=== PATIENT | female | born 1955 | race Caucasian/White ===

== ENCOUNTER → 2016-09-06 | Outpatient (CLI) | payer BC ==
[~2016-09-06] MED LIST: DOXY-233 PO; HYDR-3583 PO; HYDR12.56 PO; LISI-556 PO
--- NOTE | 2016-09-06 10:05 | Diagnostic Imaging Report ---
Left breast ultrasound. INDICATION: History of breast cancer with focal asymmetries seen in the left breast. FINDINGS: At 2 o'clock zone 6 cm from the nipple there is a 1.0 x 0.8 x 0.4-cm heterogenous hypoechoic lesion with shadowing portion that has internal vascularity measuring 5 mm within this lesion. Also at 3 o'clock zone 2 cm from the nipple there is a 1.2 x 0.6 x 0.6-cm hypoechoic irregular lesion with increased vascularity with color Doppler. IMPRESSION: Two suspicious nodules up to 1.2 cm in size at 3 o'clock and 2 o'clock zones concerning for tumor recurrence. Ultrasound-guided biopsy is recommended. The findings and recommendations were personally discussed with the patient just before this dictation. ACR BI-RADS Category 4B: Intermediate suspicion of malignancy. Result letter will be mailed to the patient. Report was faxed to office of FERMIN Villanueva, @ 10:02 AM/tonja. Dictated by: Dictated on workstation # [id number]
--- NOTE | 2016-09-06 19:00 | Diagnostic Imaging Report ---
Bilateral breast diagnostic mammogram. INDICATION: Thickening at the lumpectomy site in the left breast. History of breast cancer. The current study was also evaluated with a Computer Aided Detection (CAD) system. FINDINGS: There is a focal asymmetry along the lateral aspect of the left breast. This is evaluated with focal compression views which demonstrate a concerning underlying irregular focal asymmetry measuring 1 cm. Also more posterolaterally, there is an 8 mm asymmetry seen on the CC projection and not definitively seen on the lateral view. The right breast demonstrates scattered fibroglandular densities with no focal mass. No suspicious calcification. IMPRESSION: Concerning irregular focal asymmetry in the lateral aspect of the left breast and another questionable nodule more posterolaterally seen only on the CC projection. Ultrasound evaluation is pending. ACR BI-RADS Category 0: Incomplete. (Needs additional imaging evaluation). Result letter will be mailed to the patient. Note: At least 10% of breast cancer is not imaged by mammography. Dictated by: Dictated on workstation # [id number]
== END ==
LOC: RAD 08:38
PROVIDERS: ATTEND Nurse Practitioner Adult Health
DX: N63 Unspecified lump in breast (principal); N64.59 Other signs and symptoms in breast; C50.412 Malignant neoplasm of upper-outer quadrant of left female breast
CPT/HCPCS: 76642; 77066

== ENCOUNTER → 2016-09-18 | Outpatient (CLI) | payer BC ==
[~2016-09-18] VITALS: Ht 172.7 cm; Wt 111.7 kg
[~2016-09-18] MED LIST changes: +LIDOCAINE 1% INJ 20 ML (XYLOCAINE) VIAL INJ ONE
[2016-09-18 08:47] VITALS: BP 137/86
[2016-09-18 09:43] VITALS: BP 128/80
--- NOTE | 2016-09-18 10:13 | Diagnostic Imaging Report ---
EXAMINATION: Vacuum-assisted ultrasound-guided biopsy of breast mass left. A metallic clip placed to souleymane biopsy site. INDICATION: Left breast mass. CONSENT: Informed consent was obtained from the patient. The risks, benefits, potential complications and alternatives were reviewed and all questions answered to the patient's satisfaction. FINDINGS: Ultrasound images demonstrate left breast mass at 3:00 zone 2 CM from the nipple. PROCEDURE: After sterile preparation and draping, 1% lidocaine was utilized for local anesthesia. A vacuum-assisted biopsy device with 14-gauge needle was introduced under live ultrasound guidance into the lesion. Good needle position was documented with ultrasound images. A metallic clip was placed to souleymane the site of the biopsy. A subsequent mammogram is performed and confirms the proper positioning of the clip. Multiple samples were obtained and sent to pathology. The patient tolerated the procedure well with no immediate complications. IMPRESSION: Successful ultrasound-guided biopsy of 3:00 left breast mass. A metallic clip placed to souleymane biopsy site. Dictated by: Dictated on workstation # [id number]
--- NOTE | 2016-09-18 18:36 | Diagnostic Imaging Report ---
EXAMINATION: Left breast digital diagnostic mammogram with CAD. The current study was also evaluated with a Computer Aided Detection (CAD) system. INDICATION: Documentation of clip position after ultrasound-guided biopsy. FINDINGS: There is a biopsy clip placed at the lateral aspect of the left breast, it appears to correspond with the lateral left breast suspicious nodule seen previously. IMPRESSION: Satisfactory placement of clip application of lateral left breast nodule after ultrasound-guided biopsy. Pathology results are pending. ACR BI-RADS Category 4C: Moderate suspicion of malignancy. Result letter will be mailed to the patient. Note: At least 10% of breast cancer is not imaged by mammography. Dictated by: Dictated on workstation # [id number]
== END ==
LOC: RAD 08:28
PROVIDERS: ATTEND Nurse Practitioner Adult Health
DX: N63 Unspecified lump in breast (principal); N64.59 Other signs and symptoms in breast; C50.412 Malignant neoplasm of upper-outer quadrant of left female breast
CPT/HCPCS: 19083; 88305; 88360; 88368

== ENCOUNTER → 2016-10-08 | Outpatient (CLI) | payer BC ==
[~2016-10-08] MED LIST changes: -LIDOCAINE 1% INJ 20 ML (XYLOCAINE) VIAL INJ ONE
== END ==
LOC: RAD 08:56
PROVIDERS: ATTEND Nurse Practitioner Adult Health
DX: C50.412 Malignant neoplasm of upper-outer quadrant of left female breast (principal)

== ENCOUNTER 2016-10-09 09:02 | Outpatient (CLI) | payer BC ==
[~2016-10-09] VITALS: Ht 172.7 cm; Wt 116.1 kg
[2016-10-09 09:15] VITALS: BP 133/70
== END 2016-10-09 09:30 | disposition home or self-care (01) ==
LOC: PREOP 09:02
PROVIDERS: ATTEND Surgery
DX: Z01.818 Encounter for other preprocedural examination (principal); Z11.2 Encounter for screening for other bacterial diseases; C50.912 Malignant neoplasm of unspecified site of left female breast
CPT/HCPCS: 87081

== ENCOUNTER → 2016-10-09 | Outpatient (CLI) | payer BC | LOC: CARD 08:08 | PROVIDERS: ATTEND Nurse Practitioner Adult Health | DX: Z51.81 Encounter for therapeutic drug level monitoring (principal); Z79.899 Other long term (current) drug therapy; C50.412 Malignant neoplasm of upper-outer quadrant of left female breast; I10 Essential (primary) hypertension | CPT/HCPCS: 93306 ==

== ENCOUNTER 2016-10-10 11:06 | Day surgery (SDC) | payer BC ==
[~2016-10-10] VITALS: Ht 172.7 cm; Wt 116.1 kg
[2016-10-10 11:00] VITALS: BP 136/66
[~2016-10-10 11:06] MED LIST changes: +CATHETER FLUSH 10 ML SYR IV PRN; +IOHEXOL 350 MG/ML 100 ML (OMNIPAQUE 350) VIAL IV ONE; +NS 100 ML (IVPB) BAG IV ONE
[2016-10-10] MEDS ORDERED: ceFAZolin 2 GM/NS 50 ML IV ONE (11:30)
--- NOTE | 2016-10-10 12:05 | Discharge Inst-Simple/Standard ---
Discharge Inst-Standard Patient Instructions/Follow Up Plan of Care/Instructions/FU: Follow up with Dr. Reynoso in 2 weeks. Apply ice to incision for 15 mins on and 30 mins off Activity as Tolerated: No Discharge Diet: No Restrictions Other Inst to Patient Follow up Appt: Make appointment for 2 weeks. Instructions: No lifting greater than 10 pounds. No strenuous activity. May shower in 24 hours, no tub bath or soaking. Use incentive spirometer at home as directed. No Smoking Apply ice to incision for 15 mins on and 30 mins off Skin/Wound Care: May remove bandages. You need to leave the white strips over incision on they will fall off on their own. Symptoms to Report: Appetite Changes, Extremity Discoloration, Numbness/Tingling, Swelling Increased , Bleeding Excessive, Eyesight Changes, Pain Increased, Urine Color Change, Constipation(Persistent), Fever over 101 degree F, Pain/Pressure in chest, Urinating Difficulty, Cough Up/Vomit Blood, Heart Beat Irreg/Pounding, Pain/ Pressure in jaw, Vaginal Bleeding Increase, Cramps in feet or legs, Lightheadedness, Pain/Pressure in shoulder, Diarrhea(Persistent), Memory Changes Suddenly, Questions/Concerns, Weight gain consecutive days, Dizziness/ Fainting, Nausea/Vomiting, Shortness of Breath, Weight gain over 2 pounds If questions or concerns contact your physician Or seek help at emergency department. BECKY DONIS APRN October 10, 2016 12:05
[2016-10-10] MEDS ORDERED: LACTATED RINGERS 1,000 ML IV ONE ×2 (12:16→13:21)
[2016-10-10] MEDS ORDERED: LIDOCAINE PF 2% 10 ML (XYLOCAINE) AMP ONE (12:16)
[2016-10-10] MEDS ORDERED: ONDANSETRON 4 MG/2 ML (SDV) Z0FRAN ONE (12:16)
[2016-10-10] MEDS ORDERED: DEXAMETHASONE PF 10 MG/ML (DECADRON) VIAL ONE (12:16)
[2016-10-10] MEDS ORDERED: proPOfol 200 MG/20 ML (DIPRIVAN) VIAL IV ONE (12:16)
[2016-10-10] MEDS ORDERED: SEVOFLURANE (ULTANE) 15 ML INHAL SOLN ONE ×3 (12:16→14:14)
[2016-10-10] MEDS ORDERED: fentaNYL INJECTION 100 MCG/2 ML AMP ONE (12:17)
[2016-10-10] MEDS ORDERED: MIDAZOLAM 2 MG/2 ML (VERSED) VIAL ONE (12:17)
[2016-10-10] MEDS ORDERED: LACTATED RINGERS 1,000 ML IV PRN (12:26)
[2016-10-10] MEDS ORDERED: BUPIVACAINE 0.5% 30 ML (SENSORCAINE) VIAL ONE (12:40)
[2016-10-10] MEDS ORDERED: 0.9% SODIUM CHLORIDE PF INJ 20 ML VIAL ONE (12:41)
[2016-10-10] MEDS ORDERED: HEParin (CENTRAL IV FLUSH) 500 UNIT/5 ML SYR ONE (12:41)
[2016-10-10] MEDS ORDERED: LIDOCAINE 1% INJ 20 ML (XYLOCAINE) VIAL ONE (12:41)
--- NOTE | 2016-10-10 12:53 | Progress Note-Pre Operative ---
Pre-Operative Progress Note H&P Reviewed The H&P was reviewed, patient examined and no changes noted. Date H&P Reviewed: October 10, 2016 Time H&P Reviewed: 12:52 Pre-Operative Diagnosis: breast cancer CARLIE POLLOCK DO October 10, 2016 12:53 pm
[2016-10-10] MEDS ORDERED: ONDANSETRON 4 MG/2 ML (SDV) Z0FRAN IVP PRN (14:30)
[2016-10-10] MEDS ORDERED: morphine INJ 10 MG/ML 1ML (SYR OR VIAL) IVP PRN (14:30)
--- NOTE | 2016-10-10 15:01 | Diagnostic Imaging Report ---
Portable upright radiograph of the chest. INDICATION: Port placement FINDINGS: There is a right internal jugular port placed with the tip projecting at the upper SVC level. The lungs are clear. The heart size is mildly enlarged. No effusion or pneumothorax. The mediastinum and hernandez appear unremarkable. IMPRESSION: Cardiomegaly. Right IJ port is placed with the tip projecting at the upper SVC level. Dictated by: Dictated on workstation # [id number]
[2016-10-10 15:10] VITALS: BP 153/72
[2016-10-10 15:40] VITALS: BP 160/70
[2016-10-10 16:10] VITALS: BP 161/78
[2016-10-10 16:12] VITALS: BP 161/78
--- NOTE | 2016-10-10 16:23 | Progress Note-Post Operative ---
Post-Operative Progess Note Surgeon (s)/Master Technician (s) Surgeon CARLIE POLLOCK DO Master Technician: na Pre-Operative Diagnosis breast cancer Post-Operative Diagnosis same Procedure & Operative Findings Date of Procedure 10/10/16 Procedure Preformed/Findings power port placement right internal jugular vein using u/s guidance Anesthesia Type general Estimated Blood Loss Estimated blood loss (mL): minimal Specimens/Packing Specimens Removed na Packing: CARLIE Solis DO October 10, 2016 4:23 pm
--- NOTE | 2016-10-10 16:51 | OPERATIVE REPORT ---
DATE OF SERVICE: 10/10/2016 PREOPERATIVE DIAGNOSIS: Breast cancer. POSTOPERATIVE DIAGNOSIS: Breast cancer. PROCEDURE PERFORMED: PowerPort placement right internal jugular vein using ultrasound guidance. SURGEON: Carlie Reynoso D.O. ANESTHESIA: General. ESTIMATED BLOOD LOSS: Minimal. SPECIMENS: None. PACKING: None. INDICATIONS: The patient is a 61-year-old female re-diagnosed with breast cancer. She is going to undergo chemotherapy. She understands risks and benefits of procedure and wished to proceed with procedure. Consent was on the chart. PROCEDURE: The patient was taken to the operating suite, she was prepped and draped in sterile fashion. Surgical pause was performed. Using ultrasound guidance, right internal jugular vein was accessed, dark nonpulsatile was withdrawn. The micro-access wire was inserted under fluoroscopy and assured proper placement. The needle was removed. A stab incision was made on the neck at the insertion point and a micro-access dilator was then advanced over the guidewire and the wire was removed. The normal guidewire was then inserted and fluoroscopy assured proper placement. The sheath was removed. The wire was secured. Local anesthetic was infiltrated into the right chest and a #15 blade scalpel was used to make a skin incision and dissect down to the pectoral fascia. I created a pocket both with cautery and blunt dissection. A dilator sheath was then advanced over the guidewire under fluoroscopy. On first attempt had a little bit of resistance, but then the dilator sheath went without difficulty. The wire and dilator were removed from the sheath and the Groshong catheter was then inserted into the sheath and the sheath was removed. The Groshong wire was then removed. The catheter was then tunneled from the neck incision down to the pocket on the right chest. Fluoroscopy was used to help cutting the catheter to length. Once cut to length it was secured to the port which was then placed within the pocket. The port was then accessed without difficulty. It flushed with ease first with saline and then heparin. The subcutaneous tissues were then reapproximated using 3-0 Vicryl. The skin was then washed and dried and Dermabond was placed over the incision on the chest and the stab incision on the right neck. Once the Dermabond was dried a sterile bandage was applied. The patient tolerated the procedure well without any complications. She was taken to the recovery room in stable condition. Chest x-ray is pending. Job ID: [id number] DocumentID: [id number] Dictated Date: 10/10/2016 16:25:04 Tour Driver Date: 10/10/2016 16:50:50 Dictated By: CARLIE REYNOSO DO
--- NOTE | 2016-10-10 19:30 | Diagnostic Imaging Report ---
Intraoperative view of the chest. INDICATION: Port placement. Fluoroscopy time of one minute and 28 seconds was reviewed. IMPRESSION: Right internal jugular port is placed with the tip projecting at the SVC level. Dictated by: Dictated on workstation # [id number]
== END 2016-10-10 16:12 | disposition home or self-care (01) ==
LOC: SDC 11:06
PROVIDERS: ATTEND Surgery
DX: C50.912 Malignant neoplasm of unspecified site of left female breast (principal); I10 Essential (primary) hypertension; E66.9 Obesity, unspecified; F17.210 Nicotine dependence, cigarettes, uncomplicated; Z68.39 Body mass index [BMI] 39.0-39.9, adult
CPT/HCPCS: 71010

== ENCOUNTER → 2016-10-15 | Outpatient (CLI) | payer BC ==
[~2016-10-15] MED LIST changes: -CATHETER FLUSH 10 ML SYR IV PRN; -IOHEXOL 350 MG/ML 100 ML (OMNIPAQUE 350) VIAL IV ONE; -NS 100 ML (IVPB) BAG IV ONE
--- NOTE | 2016-10-15 18:09 | Diagnostic Imaging Report ---
EXAMINATION: PET-CT TECHNIQUE: Serum glucose level at the time of the study is: 213 mg/dL. This is slightly improved compared to 230 one week prior. Diet modification instructions were given. 12.6 mCi of FDG was administered intravenously followed by obtaining PET images with corresponding noncontrast CT scan images. The CT scan was performed for anatomic correlation and attenuation correction and was not performed according to the diagnostic protocol of the areas covered. The scan was performed from the head to mid thighs. INDICATION: Breast cancer followup FINDINGS: There is a mild hypermetabolism seen in a right paratracheal lymph node measuring 0.9 cm in short axis with maximum SUV of 4.4. There is also a mild to moderate focus of hypermetabolism seen in the thoracic spine, appears to be involving the T5 vertebral body which also demonstrates a subtle sclerotic and lytic lesion measuring 1 cm that appears to be new compared to the previous study. There is a questionable minimal FDG uptake also seen in a nonspecific minimal sclerotic area in T6 vertebral body, as well. This is concerning for metastatic disease. No significant hypermetabolism is seen in the chest otherwise. No significant hypermetabolic lesion is seen in the neck or in the head with symmetric FDG uptake noted in the brain. ABDOMEN / PELVIS: Stable hypodense lesion is seen in the liver near the gallbladder bed without increased FDG uptake, presumably related to focal fatty infiltration. Slight heterogeneity of uptake in the liver parenchyma is seen with no convincing hypermetabolic mass. There is a ventral hernia containing nonobstructive small bowel loops in the infraumbilical region and another infraumbilical ventral hernia also containing small bowel loops more inferiorly. There is a narrow neck ventral hernia in the supraumbilical region just to the right of the midline as well with no obstructive changes. Large gallstone is seen. IMPRESSION: 1. Development of mild to moderate hypermetabolism in T5 vertebral body with suggestion of a subtle sclerotic and lytic change about 1 cm in size suggestive of early bone metastasis. 2. A 0.9 cm right paratracheal mildly hypermetabolic lymph node could also represent metastasis. 3. Multiple ventral hernias containing nonobstructive small bowel loops as described. 4. Cholelithiasis. Dictated by: Dictated on workstation # [id number]
== END ==
LOC: RAD 10:23
PROVIDERS: ATTEND Nurse Practitioner Adult Health
DX: C50.412 Malignant neoplasm of upper-outer quadrant of left female breast (principal); K80.20 Calculus of gallbladder without cholecystitis without obstruction; K43.9 Ventral hernia without obstruction or gangrene

== ENCOUNTER → 2016-10-22 | Outpatient (CLI) | payer BC ==
[~2016-10-22] MED LIST changes: +CATHETER FLUSH 10 ML SYR IV PRN; +GADOBUTROL 7.5 MMOL/7.5 ML (GADAVIST) VIAL IV ONE; +IOHEXOL 350 MG/ML 100 ML (OMNIPAQUE 350) VIAL IV ONE; +NS 100 ML (IVPB) BAG IV ONE
--- NOTE | 2016-10-22 11:13 | Diagnostic Imaging Report ---
PROCEDURE: CT chest with contrast only. TECHNIQUE: Multiple contiguous axial images were obtained through the chest after administration of intravenous contrast. INDICATION: History of breast cancer. COMPARISON: This study is correlated with the recent PET/CT from 10/15/2016 which demonstrated mild hypermetabolism in the T5 vertebral body and in a slightly prominent mildly hypermetabolic right paratracheal lymph node. FINDINGS: A 0.9 cm right paratracheal lymph node is seen correlating with the mildly hypermetabolic node on the recent PET and minimally enlarged from the 02/21/2015 exam, raising the question of early micheal metastasis. No other significantly enlarged lymph nodes in the mediastinum or axilla are seen. No significantly enlarged hilar lymph nodes. The thoracic aorta is normal in caliber. The heart size is normal. There is a nonspecific 6 mm subtle nodule seen in the right upper lobe just above the minor fissure, axial image 24. The etiology is indeterminate. The left lung demonstrates no significant consolidation or mass. No pleural or pericardial effusion. The hypermetabolic lesion in the T5 vertebral body appears to correlate with a subtle mixed sclerotic and lytic area measuring 1.4 cm. Based on the hypermetabolic activity, this may relate to early metastasis. A nonspecific sclerotic focus in the T6 vertebral body is similar to 02/21/2015 exam, favored to be a bony island. No destructive osseous mass is identified. Sections in the upper abdomen demonstrate a hypodense lesion in the liver along the posterior aspect of segment 4 measuring 3.1 x 1.6 cm, likely related to focal fatty infiltration, which appears similar to the 2015 exam. IMPRESSION: 1. A minimally prominent 0.9 cm right paratracheal lymph node is slightly larger compared to the 2015 exam. 2. Subtle area of sclerotic and lucent change in the T5 vertebral body, new from 2015. 3. The above findings were associated with hypermetabolism on the recent PET, concerning for early metastatic disease. Dictated by: Dictated on workstation # [id number]
--- NOTE | 2016-10-22 11:37 | Diagnostic Imaging Report ---
EXAMINATION: Multiplanar, multisequence MRI of the thoracic spine performed without and with intravenous contrast. INDICATION: History of breast cancer. 7 mL of Gadavist is administered intravenously. COMPARISON: Correlation with prior CT and PET scan images is performed. FINDINGS: In T5 vertebral body, there is a 2 cm hypointense lesion on T1 with postcontrast enhancement. In T6 vertebral body, a rounded lesion measuring 1.2 cm with similar features is also seen. There is an enhancing mass measuring 1.9 cm also noted in T9 vertebral body. There is also suggestion of a 1 cm lesion within the right pedicle of T4 also demonstrating contrast enhancement. These are suggestive of metastatic disease. Additional lesion measuring 1 cm seen within T10 vertebral body demonstrates minimal post contrast enhancement and T1 hyperintense signal is likely a hemangioma. Other marrow changes around endplates most prominent at T8/9 and T7/8 levels are degenerative related and/or abutting the endplates. None of the lesions mentioned above have soft tissue extension into the spinal canal. No compression fractures. The alignment of the vertebral bodies posterior margin is satisfactory. There is multilevel disc desiccation and minimal disc herniation seen at multiple levels with no significant spinal canal stenosis however seen at any level. No cord compression. The spinal cord has normal signal, contour and caliber. No enhancing mass within the spinal canal or within the spinal cord. IMPRESSION: Multiple enhancing lesions involving T4, T5, T6, and T9 vertebral bodies are likely related to metastatic disease. These are confined to the vertebral bodies. No pathologic fracture. No extension or metastasis into the spinal canal or the spinal cord. Dictated by: Dictated on workstation # [id number]
== END ==
LOC: RAD 08:32
PROVIDERS: ATTEND Nurse Practitioner Adult Health
DX: M89.9 Disorder of bone, unspecified (principal); C50.412 Malignant neoplasm of upper-outer quadrant of left female breast; J98.8 Other specified respiratory disorders
CPT/HCPCS: 71260; 72157

== ENCOUNTER → 2016-11-20 | Outpatient (RCR) | payer BC ==
[2016-08-22 09:09] LABS: BASOPHILS # (AUTO) 0.1 10^3/uL (0.0-0.1); BASOPHILS % (AUTO) 1 % (0-10); EOSINOPHILS # (AUTO) 0.1 10^3/uL (0.0-0.3); EOSINOPHILS % (AUTO) 2 % (0-10); LYMPHOCYTES # (AUTO) 1.8 X 10^3 (1.0-4.0); LYMPHOCYTES % (AUTO) 25 % (12-44); MEAN CORPUSCULAR HEMOGLOBIN 28 PG (25-34); MEAN CORPUSCULAR HGB CONC 34 G/DL (32-36); MEAN CORPUSCULAR VOLUME 83 FL (80-99); MEAN PLATELET VOLUME 9.5 FL (7.4-10.4); MONOCYTES # (AUTO) 0.4 X 10^3 (0.0-1.0); MONOCYTES % (AUTO) 5 % (0-12); NEUTROPHILS # (AUTO) 5.1 X 10^3 (1.8-7.8); NEUTROPHILS % (AUTO) 68 % (42-75); PLATELET COUNT 247 10^3/uL (130-400); RED BLOOD COUNT 4.91 10^6/uL (4.35-5.85); RED CELL DISTRIBUTION WIDTH 14.2 % (10.0-14.5); WHITE BLOOD COUNT 7.5 10^3/uL (4.3-11.0)
[2016-08-22 10:03] LABS: ALBUMIN 4.1 G/DL (3.2-4.5); BILIRUBIN,TOTAL 0.6 MG/DL (0.1-1.0); CALCIUM 9.5 MG/DL (8.5-10.1); CREATININE SERUM 0.95 MG/DL (0.60-1.30); POTASSIUM 4.2 MMOL/L (3.6-5.0); TOTAL PROTEIN 6.9 G/DL (6.4-8.2)
[2016-10-16 09:58] LABS: BASOPHILS % (AUTO) 0 % (0-10); EOSINOPHILS % (AUTO) 0 % (0-10); LYMPHOCYTES # (AUTO) 0.6 X 10^3 (1.0-4.0); LYMPHOCYTES % (AUTO) 6 % (12-44); MEAN CORPUSCULAR HEMOGLOBIN 28 PG (25-34); MEAN CORPUSCULAR HGB CONC 34 G/DL (32-36); MEAN CORPUSCULAR VOLUME 82 FL (80-99); MONOCYTES % (AUTO) 0 % (0-12); NEUTROPHILS # (AUTO) 8.8 X 10^3 (1.8-7.8); NEUTROPHILS % (AUTO) 93 % (42-75); PLATELET COUNT 267 10^3/uL (130-400); RED BLOOD COUNT 4.89 10^6/uL (4.35-5.85); RED CELL DISTRIBUTION WIDTH 14.5 % (10.0-14.5); WHITE BLOOD COUNT 9.5 10^3/uL (4.3-11.0)
[2016-10-16 10:27] LABS: ALBUMIN 4.2 G/DL (3.2-4.5); BILIRUBIN,TOTAL 0.8 MG/DL (0.1-1.0); CALCIUM 9.8 MG/DL (8.5-10.1); CREATININE SERUM 1.25 MG/DL (0.60-1.30); POTASSIUM 4.1 MMOL/L (3.6-5.0); TOTAL PROTEIN 6.9 G/DL (6.4-8.2)
[2016-10-23 08:56] LABS: BASOPHILS % (AUTO) 1 % (0-10); EOSINOPHILS # (AUTO) 0.1 10^3/uL (0.0-0.3); EOSINOPHILS % (AUTO) 2 % (0-10); LYMPHOCYTES # (AUTO) 1.6 X 10^3 (1.0-4.0); LYMPHOCYTES % (AUTO) 24 % (12-44); MEAN CORPUSCULAR HEMOGLOBIN 28 PG (25-34); MEAN CORPUSCULAR HGB CONC 34 G/DL (32-36); MEAN CORPUSCULAR VOLUME 83 FL (80-99); MONOCYTES # (AUTO) 0.2 X 10^3 (0.0-1.0); MONOCYTES % (AUTO) 3 % (0-12); NEUTROPHILS # (AUTO) 4.6 X 10^3 (1.8-7.8); NEUTROPHILS % (AUTO) 71 % (42-75); PLATELET COUNT 246 10^3/uL (130-400); RED CELL DISTRIBUTION WIDTH 14.1 % (10.0-14.5); WHITE BLOOD COUNT 6.5 10^3/uL (4.3-11.0)
[2016-10-23 09:08] LABS: ANION GAP 10 MMOL/L (5-14); BLOOD UREA NITROGEN 12 MG/DL (7-18); BUN/CREATININE RATIO 15; CALCIUM 9.3 MG/DL (8.5-10.1); CARBON DIOXIDE 25 MMOL/L (21-32); CHLORIDE 102 MMOL/L (98-107); CREATININE SERUM 0.82 MG/DL (0.60-1.30); GFR ESTIMATED > 60; GLUCOSE 163 MG/DL (70-105); POTASSIUM 3.7 MMOL/L (3.6-5.0); SODIUM 137 MMOL/L (135-145)
[2016-10-30 08:58] LABS: BASOPHILS # (AUTO) 0.1 10^3/uL (0.0-0.1); BASOPHILS % (AUTO) 1 % (0-10); EOSINOPHILS # (AUTO) 0.1 10^3/uL (0.0-0.3); EOSINOPHILS % (AUTO) 2 % (0-10); LYMPHOCYTES # (AUTO) 1.5 X 10^3 (1.0-4.0); LYMPHOCYTES % (AUTO) 31 % (12-44); MEAN CORPUSCULAR HEMOGLOBIN 29 PG (25-34); MEAN CORPUSCULAR HGB CONC 35 G/DL (32-36); MEAN CORPUSCULAR VOLUME 83 FL (80-99); MEAN PLATELET VOLUME 9.9 FL (7.4-10.4); MONOCYTES # (AUTO) 0.3 X 10^3 (0.0-1.0); MONOCYTES % (AUTO) 5 % (0-12); NEUTROPHILS # (AUTO) 2.9 X 10^3 (1.8-7.8); NEUTROPHILS % (AUTO) 61 % (42-75); PLATELET COUNT 274 10^3/uL (130-400); RED BLOOD COUNT 4.43 10^6/uL (4.35-5.85); RED CELL DISTRIBUTION WIDTH 14.4 % (10.0-14.5); WHITE BLOOD COUNT 4.8 10^3/uL (4.3-11.0)
[2016-10-30 09:28] LABS: ANION GAP 12 MMOL/L (5-14); BLOOD UREA NITROGEN 13 MG/DL (7-18); BUN/CREATININE RATIO 17; CALCIUM 9.2 MG/DL (8.5-10.1); CARBON DIOXIDE 23 MMOL/L (21-32); CHLORIDE 102 MMOL/L (98-107); CREATININE SERUM 0.77 MG/DL (0.60-1.30); GFR ESTIMATED > 60; GLUCOSE 160 MG/DL (70-105); POTASSIUM 3.7 MMOL/L (3.6-5.0); SODIUM 137 MMOL/L (135-145)
[2016-11-06 08:55] LABS: BASOPHILS % (AUTO) 1 % (0-10); EOSINOPHILS # (AUTO) 0.1 10^3/uL (0.0-0.3); EOSINOPHILS % (AUTO) 1 % (0-10); LYMPHOCYTES % (AUTO) 19 % (12-44); MEAN CORPUSCULAR HEMOGLOBIN 29 PG (25-34); MEAN CORPUSCULAR HGB CONC 33 G/DL (32-36); MEAN CORPUSCULAR VOLUME 86 FL (80-99); MEAN PLATELET VOLUME 10.1 FL (7.4-10.4); MONOCYTES # (AUTO) 0.4 X 10^3 (0.0-1.0); MONOCYTES % (AUTO) 6 % (0-12); NEUTROPHILS % (AUTO) 73 % (42-75); PLATELET COUNT 209 10^3/uL (130-400); RED BLOOD COUNT 3.89 10^6/uL (4.35-5.85); RED CELL DISTRIBUTION WIDTH 14.7 % (10.0-14.5); WHITE BLOOD COUNT 5.5 10^3/uL (4.3-11.0)
[2016-11-06 09:16] LABS: ANION GAP 9 MMOL/L (5-14); BLOOD UREA NITROGEN 15 MG/DL (7-18); BUN/CREATININE RATIO 19; CALCIUM 9.3 MG/DL (8.5-10.1); CARBON DIOXIDE 25 MMOL/L (21-32); CHLORIDE 106 MMOL/L (98-107); CREATININE SERUM 0.77 MG/DL (0.60-1.30); GFR ESTIMATED > 60; GLUCOSE 194 MG/DL (70-105); POTASSIUM 3.6 MMOL/L (3.6-5.0); SODIUM 140 MMOL/L (135-145)
[2016-11-13 08:58] LABS: BASOPHILS # (AUTO) 0.1 10^3/uL (0.0-0.1); BASOPHILS % (AUTO) 2 % (0-10); EOSINOPHILS # (AUTO) 0.1 10^3/uL (0.0-0.3); EOSINOPHILS % (AUTO) 1 % (0-10); LYMPHOCYTES # (AUTO) 1.3 X 10^3 (1.0-4.0); LYMPHOCYTES % (AUTO) 22 % (12-44); MEAN CORPUSCULAR HEMOGLOBIN 29 PG (25-34); MEAN CORPUSCULAR HGB CONC 34 G/DL (32-36); MEAN CORPUSCULAR VOLUME 84 FL (80-99); MEAN PLATELET VOLUME 10.3 FL (7.4-10.4); MONOCYTES # (AUTO) 0.5 X 10^3 (0.0-1.0); MONOCYTES % (AUTO) 8 % (0-12); NEUTROPHILS # (AUTO) 4.1 X 10^3 (1.8-7.8); NEUTROPHILS % (AUTO) 68 % (42-75); PLATELET COUNT 236 10^3/uL (130-400); RED BLOOD COUNT 4.57 10^6/uL (4.35-5.85); RED CELL DISTRIBUTION WIDTH 14.9 % (10.0-14.5); WHITE BLOOD COUNT 6.1 10^3/uL (4.3-11.0)
[2016-11-13 09:16] LABS: ANION GAP 12 MMOL/L (5-14); BLOOD UREA NITROGEN 17 MG/DL (7-18); BUN/CREATININE RATIO 20 (0-20); CALCIUM 9.5 MG/DL (8.5-10.1); CARBON DIOXIDE 24 MMOL/L (21-32); CHLORIDE 100 MMOL/L (98-107); CREATININE SERUM 0.85 MG/DL (0.60-1.30); GFR ESTIMATED > 60; GLUCOSE 203 MG/DL (70-105); POTASSIUM 4.1 MMOL/L (3.6-5.0); SODIUM 136 MMOL/L (135-145)
[~2016-11-20] VITALS: Ht 172.7 cm; Wt 111.1 kg
[~2016-11-20] MED LIST changes: -CATHETER FLUSH 10 ML SYR IV PRN; +DEXAMETHASONE IV SCH; +FAMOTIDINE 20MG/2ML IV (CANCER CTR) IV SCH; -GADOBUTROL 7.5 MMOL/7.5 ML (GADAVIST) VIAL IV ONE; -IOHEXOL 350 MG/ML 100 ML (OMNIPAQUE 350) VIAL IV ONE; -NS 100 ML (IVPB) BAG IV ONE; +NS IV 1000 ML (CANCER CTR) IV SCH; +NS IV ONE; +NS IV SCH; +ONDANSETRON 16 MG, DEXAMETHASONE 10 MG/NS 50 ML IVPB IV SCH; +ONDANSETRON IV SCH; +PACLITAXEL 140 MG in NORMAL SALINE (CANCER CENTER) 250 ML IV SCH; +PACLitaxel PROTEIN 180 MG in EMPTY IV BAG (PVC) CANCER CTR 1 EA IV SCH; +TRASTUZUMAB IV ONE; +TRASTUZUMAB IV SCH; +[UNRECOGNIZED DRUG - OTHER] IV SCH; +diphenhydrAMINE 25 MG TAB (BENADRYL) CANCER CENTER PO SCH; +diphenhydrAMINE 50 MG/ML INJ (CANCER CENTER) IV PRN
[2016-11-20 10:40] LABS: BASOPHILS # (AUTO) 0.1 10^3/uL (0.0-0.1); BASOPHILS % (AUTO) 1 % (0-10); EOSINOPHILS # (AUTO) 0.1 10^3/uL (0.0-0.3); EOSINOPHILS % (AUTO) 1 % (0-10); LYMPHOCYTES # (AUTO) 1.5 X 10^3 (1.0-4.0); LYMPHOCYTES % (AUTO) 17 % (12-44); MEAN CORPUSCULAR HEMOGLOBIN 29 PG (25-34); MEAN CORPUSCULAR HGB CONC 34 G/DL (32-36); MEAN CORPUSCULAR VOLUME 85 FL (80-99); MEAN PLATELET VOLUME 9.7 FL (7.4-10.4); MONOCYTES # (AUTO) 0.5 X 10^3 (0.0-1.0); MONOCYTES % (AUTO) 6 % (0-12); NEUTROPHILS # (AUTO) 6.8 X 10^3 (1.8-7.8); NEUTROPHILS % (AUTO) 76 % (42-75); PLATELET COUNT 230 10^3/uL (130-400); RED BLOOD COUNT 4.32 10^6/uL (4.35-5.85); RED CELL DISTRIBUTION WIDTH 14.9 % (10.0-14.5); WHITE BLOOD COUNT 8.9 10^3/uL (4.3-11.0)
[2016-11-20 11:03] LABS: ALBUMIN 4.1 GM/DL (3.2-4.5); BILIRUBIN,TOTAL 0.8 MG/DL (0.1-1.0); CALCIUM 9.2 MG/DL (8.5-10.1); CREATININE SERUM 1.09 MG/DL (0.60-1.30); POTASSIUM 3.5 MMOL/L (3.6-5.0)
== END | disposition home or self-care (01) ==
LOC: ONC 08-22 09:15
PROVIDERS: ATTEND Internal Medicine Hematology & Oncology
DX: Z08 Encounter for follow-up examination after completed treatment for malignant neoplasm (principal); Z85.43 Personal history of malignant neoplasm of ovary; Z85.3 Personal history of malignant neoplasm of breast; Z90.710 Acquired absence of both cervix and uterus; Z92.3 Personal history of irradiation
CPT/HCPCS: 36415; 36591; 80048; 80053; 85025; 86300; 86304; 96375; 96413; 96417; 99213

== ENCOUNTER 2016-11-27 09:07 | Outpatient (RCR) | payer BC ==
[~2016-11-27 09:07] MED LIST changes: -DEXAMETHASONE IV SCH; -FAMOTIDINE 20MG/2ML IV (CANCER CTR) IV SCH; -NS IV 1000 ML (CANCER CTR) IV SCH; -NS IV ONE; -NS IV SCH; -ONDANSETRON 16 MG, DEXAMETHASONE 10 MG/NS 50 ML IVPB IV SCH; -ONDANSETRON IV SCH; -PACLITAXEL 140 MG in NORMAL SALINE (CANCER CENTER) 250 ML IV SCH; -PACLitaxel PROTEIN 180 MG in EMPTY IV BAG (PVC) CANCER CTR 1 EA IV SCH; -TRASTUZUMAB IV ONE; -TRASTUZUMAB IV SCH; -[UNRECOGNIZED DRUG - OTHER] IV SCH; -diphenhydrAMINE 25 MG TAB (BENADRYL) CANCER CENTER PO SCH; -diphenhydrAMINE 50 MG/ML INJ (CANCER CENTER) IV PRN
[2016-11-27 09:59] LABS: CHOLESTEROL 232 MG/DL (< 200); DIRECT LDL 157 MG/DL (1-129); LIPEMIA 20 (-100-49); TRIGLYCERIDES 212 MG/DL (<150); VLDL CHOLESTEROL 42 MG/DL (5-40)
== END 2017-02-18 | disposition home or self-care (01) ==
LOC: LAB 09:07
PROVIDERS: ATTEND Family Medicine
DX: E11.9 Type 2 diabetes mellitus without complications (principal)
CPT/HCPCS: 36415; 80061; 83036

== ENCOUNTER → 2017-01-10 | Outpatient (CLI) | payer BC ==
[~2017-01-10] MED LIST changes: +BARIUM SUSPENSION 2.1% (VANILLA SILQ) 450 ML PO ONE; +IOHEXOL 350 MG/ML 100 ML (OMNIPAQUE 350) VIAL IV ONE
[2017-01-10] MEDS: CATHETER FLUSH 10 ML SYR IV PRN ×2 (11:17→11:37)
--- NOTE | 2017-01-10 14:22 | Diagnostic Imaging Report ---
PROCEDURE: CT chest and abdomen with contrast. TECHNIQUE: Multiple contiguous axial images were obtained through the chest and abdomen after the administration of intravenous contrast. INDICATION: Breast cancer surveillance imaging. COMPARISON: CT chest from 10/22/[address] abdomen from 05/08/2015. CT CHEST FINDINGS: No endoluminal lesion in the trachea or central bronchi. No solid pulmonary mass or nodule to suggest pulmonary metastasis. Previously noted 6 mm nodule in the right upper lobe has resolved. There is a linear focus of subsolid attenuation in the superior segment of the right lower lobe along the major fissure which is likely due to atelectasis. No pleural effusion or pneumothorax. No supraclavicular or axillary lymphadenopathy. Visualized thyroid is normal. The lower right paratracheal lymph node has decreased in size now measuring 5 mm in short axis dimension (previously 9 mm). Left AP window lymph node measures 5 mm in short axis diameter (previously 4 mm in short axis diameter). No new enlarged mediastinal or hilar lymph nodes by size criteria. No juxtaphrenic lymphadenopathy. Heart is normal in size without pericardial effusion. Normal-caliber thoracic aorta. Multiple new sclerotic lesions within the vertebra, with the largest and most conspicuous at T5, T6 and T9. IMPRESSION: 1. A few new and enlarging sclerotic lesions within the vertebrae may relate to treated and healing osseous metastasis. Surveillance imaging with bone scan is advised. 2. Right lower paratracheal lymph node has decreased in size. A left AP window mediastinal lymph node has slightly increased in size. 3. No evidence of pulmonary metastases. CT ABDOMEN FINDINGS: The liver, spleen, pancreas and adrenals are negative for metastasis. Kidneys are normal without mass lesion or obstructive uropathy. Normal-caliber bowel loops without obstruction. There is a small ventral hernia which contains a few small bowel loops but has a wide neck. Cholelithiasis. Atherosclerotic aorta with minimal ectasia of the infrarenal aorta measuring up to 2.4 cm. IMPRESSION: 1. No evidence of soft tissue metastasis in the abdomen or pelvis. 2. There are a few sclerotic foci throughout the vertebral bodies in the lumbar spine which may represent healing treated osseous metastases. Attention on bone scan. Dictated by: Dictated on workstation # [id number]
--- NOTE | 2017-01-10 17:40 | Diagnostic Imaging Report ---
INDICATION: History of breast cancer. COMPARISON: No previous exams for direct comparison. FINDINGS: PET study performed on October 15, 2016, showed irregular appearance of the T5 vertebral body with associated hypermetabolism. There is questionable minimal punctate increased uptake seen in the posterior views at the level of the T5 midline. Some mild [id number] thoracic and lumbar facet and endplate uptake, believed degenerative. No suspicious pelvic uptake. The upper and lower extremities aside from degenerative change are unremarkable. There are few punctate foci of elevated uptake involving the left midribs, their morphology more suggestive of posttraumatic uptake. Metastasis is less likely, consider followup. Calvarium is negative. Sternum and manubrium are negative. IMPRESSION: Left rib uptake. The morphology suggests posttraumatic change however followup recommended. Mild spondylosis and facet arthrosis and long bone arthritis. Midline T5 uptake posteriorly, indeterminate. Remaining sites are negative. Dictated by: Dictated on workstation # [id number]
== END ==
LOC: CARD 11:01
PROVIDERS: ATTEND Internal Medicine Hematology & Oncology
DX: Z01.89 Encounter for other specified special examinations (principal); C50.412 Malignant neoplasm of upper-outer quadrant of left female breast; C79.51 Secondary malignant neoplasm of bone
CPT/HCPCS: 71260; 74160; 78306

== ENCOUNTER → 2017-02-13 | Outpatient (CLI) | payer BC ==
[~2017-02-13] MED LIST changes: -BARIUM SUSPENSION 2.1% (VANILLA SILQ) 450 ML PO ONE; -IOHEXOL 350 MG/ML 100 ML (OMNIPAQUE 350) VIAL IV ONE
== END ==
LOC: CARD 09:41
PROVIDERS: ATTEND Nurse Practitioner Adult Health
DX: Z51.81 Encounter for therapeutic drug level monitoring (principal); C50.412 Malignant neoplasm of upper-outer quadrant of left female breast; M79.89 Other specified soft tissue disorders; Z79.899 Other long term (current) drug therapy
CPT/HCPCS: 93306

== ENCOUNTER 2017-02-18 08:21 | Outpatient (RCR) | payer BC ==
[2016-11-27 09:26] LABS: BASOPHILS # (AUTO) 0.1 10^3/uL (0.0-0.1); BASOPHILS % (AUTO) 1 % (0-10); EOSINOPHILS # (AUTO) 0.1 10^3/uL (0.0-0.3); EOSINOPHILS % (AUTO) 1 % (0-10); LYMPHOCYTES # (AUTO) 1.5 X 10^3 (1.0-4.0); LYMPHOCYTES % (AUTO) 21 % (12-44); MEAN CORPUSCULAR HEMOGLOBIN 29 PG (25-34); MEAN CORPUSCULAR HGB CONC 34 G/DL (32-36); MEAN CORPUSCULAR VOLUME 84 FL (80-99); MEAN PLATELET VOLUME 9.5 FL (7.4-10.4); MONOCYTES # (AUTO) 0.3 X 10^3 (0.0-1.0); MONOCYTES % (AUTO) 4 % (0-12); NEUTROPHILS # (AUTO) 5.1 X 10^3 (1.8-7.8); NEUTROPHILS % (AUTO) 73 % (42-75); PLATELET COUNT 276 10^3/uL (130-400); RED BLOOD COUNT 4.57 10^6/uL (4.35-5.85); WHITE BLOOD COUNT 6.9 10^3/uL (4.3-11.0)
[2016-11-27 10:01] LABS: ANION GAP 11 MMOL/L (5-14); BLOOD UREA NITROGEN 13 MG/DL (7-18); BUN/CREATININE RATIO 16; CALCIUM 9.5 MG/DL (8.5-10.1); CARBON DIOXIDE 26 MMOL/L (21-32); CHLORIDE 101 MMOL/L (98-107); CREATININE SERUM 0.82 MG/DL (0.60-1.30); GFR ESTIMATED > 60; GLUCOSE 158 MG/DL (70-105); HEMOLYSIS 26 (-100-29); ICTERUS 1.2 (-100-1.9); LIPEMIA 15 (-100-49); POTASSIUM 3.5 MMOL/L (3.6-5.0); SODIUM 138 MMOL/L (135-145)
[2016-12-04 09:31] LABS: BASOPHILS # (AUTO) 0.1 10^3/uL (0.0-0.1); BASOPHILS % (AUTO) 1 % (0-10); EOSINOPHILS # (AUTO) 0.1 10^3/uL (0.0-0.3); EOSINOPHILS % (AUTO) 1 % (0-10); LYMPHOCYTES # (AUTO) 1.4 X 10^3 (1.0-4.0); LYMPHOCYTES % (AUTO) 27 % (12-44); MEAN CORPUSCULAR HEMOGLOBIN 29 PG (25-34); MEAN CORPUSCULAR HGB CONC 35 G/DL (32-36); MEAN CORPUSCULAR VOLUME 84 FL (80-99); MEAN PLATELET VOLUME 9.8 FL (7.4-10.4); MONOCYTES # (AUTO) 0.3 X 10^3 (0.0-1.0); MONOCYTES % (AUTO) 5 % (0-12); NEUTROPHILS # (AUTO) 3.3 X 10^3 (1.8-7.8); NEUTROPHILS % (AUTO) 65 % (42-75); PLATELET COUNT 252 10^3/uL (130-400); RED BLOOD COUNT 4.42 10^6/uL (4.35-5.85); RED CELL DISTRIBUTION WIDTH 15.5 % (10.0-14.5); WHITE BLOOD COUNT 5.2 10^3/uL (4.3-11.0)
[2016-12-04 10:00] LABS: ANION GAP 13 MMOL/L (5-14); BLOOD UREA NITROGEN 15 MG/DL (7-18); BUN/CREATININE RATIO 19; CALCIUM 9.2 MG/DL (8.5-10.1); CARBON DIOXIDE 24 MMOL/L (21-32); CHLORIDE 99 MMOL/L (98-107); CREATININE SERUM 0.81 MG/DL (0.60-1.30); GFR ESTIMATED > 60; GLUCOSE 257 MG/DL (70-105); SODIUM 136 MMOL/L (135-145)
[2016-12-11 09:14] LABS: BASOPHILS % (AUTO) 1 % (0-10); EOSINOPHILS # (AUTO) 0.1 10^3/uL (0.0-0.3); EOSINOPHILS % (AUTO) 2 % (0-10); LYMPHOCYTES # (AUTO) 1.5 X 10^3 (1.0-4.0); LYMPHOCYTES % (AUTO) 27 % (12-44); MEAN CORPUSCULAR HEMOGLOBIN 29 PG (25-34); MEAN CORPUSCULAR HGB CONC 34 G/DL (32-36); MEAN CORPUSCULAR VOLUME 85 FL (80-99); MEAN PLATELET VOLUME 9.5 FL (7.4-10.4); MONOCYTES # (AUTO) 0.3 X 10^3 (0.0-1.0); MONOCYTES % (AUTO) 6 % (0-12); NEUTROPHILS # (AUTO) 3.5 X 10^3 (1.8-7.8); NEUTROPHILS % (AUTO) 64 % (42-75); PLATELET COUNT 245 10^3/uL (130-400); RED BLOOD COUNT 4.38 10^6/uL (4.35-5.85); WHITE BLOOD COUNT 5.5 10^3/uL (4.3-11.0)
[2016-12-11 09:48] LABS: ANION GAP 10 MMOL/L (5-14); BLOOD UREA NITROGEN 11 MG/DL (7-18); BUN/CREATININE RATIO 14; CALCIUM 9.3 MG/DL (8.5-10.1); CARBON DIOXIDE 25 MMOL/L (21-32); CHLORIDE 100 MMOL/L (98-107); GFR ESTIMATED > 60; GLUCOSE 214 MG/DL (70-105); POTASSIUM 3.7 MMOL/L (3.6-5.0); SODIUM 135 MMOL/L (135-145)
[2016-12-17 09:14] LABS: BASOPHILS # (AUTO) 0.1 10^3/uL (0.0-0.1); BASOPHILS % (AUTO) 1 % (0-10); EOSINOPHILS # (AUTO) 0.1 10^3/uL (0.0-0.3); EOSINOPHILS % (AUTO) 2 % (0-10); LYMPHOCYTES # (AUTO) 1.6 X 10^3 (1.0-4.0); LYMPHOCYTES % (AUTO) 26 % (12-44); MEAN CORPUSCULAR HEMOGLOBIN 29 PG (25-34); MEAN CORPUSCULAR HGB CONC 34 G/DL (32-36); MEAN CORPUSCULAR VOLUME 86 FL (80-99); MEAN PLATELET VOLUME 9.3 FL (7.4-10.4); MONOCYTES # (AUTO) 0.5 X 10^3 (0.0-1.0); MONOCYTES % (AUTO) 8 % (0-12); NEUTROPHILS # (AUTO) 3.9 X 10^3 (1.8-7.8); NEUTROPHILS % (AUTO) 64 % (42-75); PLATELET COUNT 239 10^3/uL (130-400); RED BLOOD COUNT 4.41 10^6/uL (4.35-5.85); RED CELL DISTRIBUTION WIDTH 16.1 % (10.0-14.5); WHITE BLOOD COUNT 6.1 10^3/uL (4.3-11.0)
[2016-12-17 09:44] LABS: ALANINE AMINOTRANSFERASE 24 U/L (0-55); ALBUMIN 3.8 GM/DL (3.2-4.5); ANION GAP 10 MMOL/L (5-14); ASPARTATE AMINO TRANSFERASE 15 U/L (5-34); BILIRUBIN,TOTAL 0.8 MG/DL (0.1-1.0); BLOOD UREA NITROGEN 12 MG/DL (7-18); BUN/CREATININE RATIO 13; CALCIUM 9.1 MG/DL (8.5-10.1); CARBON DIOXIDE 26 MMOL/L (21-32); CHLORIDE 101 MMOL/L (98-107); CREATININE SERUM 0.89 MG/DL (0.60-1.30); GFR ESTIMATED > 60; GLUCOSE 232 MG/DL (70-105); POTASSIUM 3.8 MMOL/L (3.6-5.0); SODIUM 137 MMOL/L (135-145); TOTAL PROTEIN 6.7 GM/DL (6.4-8.2)
[2016-12-25 09:09] LABS: BASOPHILS # (AUTO) 0.1 10^3/uL (0.0-0.1); BASOPHILS % (AUTO) 2 % (0-10); EOSINOPHILS # (AUTO) 0.1 10^3/uL (0.0-0.3); EOSINOPHILS % (AUTO) 2 % (0-10); LYMPHOCYTES # (AUTO) 1.5 X 10^3 (1.0-4.0); LYMPHOCYTES % (AUTO) 23 % (12-44); MEAN CORPUSCULAR HEMOGLOBIN 29 PG (25-34); MEAN CORPUSCULAR HGB CONC 33 G/DL (32-36); MEAN CORPUSCULAR VOLUME 87 FL (80-99); MEAN PLATELET VOLUME 9.9 FL (7.4-10.4); MONOCYTES # (AUTO) 0.3 X 10^3 (0.0-1.0); MONOCYTES % (AUTO) 5 % (0-12); NEUTROPHILS # (AUTO) 4.2 X 10^3 (1.8-7.8); NEUTROPHILS % (AUTO) 68 % (42-75); PLATELET COUNT 252 10^3/uL (130-400); RED BLOOD COUNT 4.47 10^6/uL (4.35-5.85); RED CELL DISTRIBUTION WIDTH 15.6 % (10.0-14.5); WHITE BLOOD COUNT 6.2 10^3/uL (4.3-11.0)
[2016-12-25 09:39] LABS: ANION GAP 10 MMOL/L (5-14); BLOOD UREA NITROGEN 15 MG/DL (7-18); BUN/CREATININE RATIO 17; CALCIUM 9.3 MG/DL (8.5-10.1); CARBON DIOXIDE 26 MMOL/L (21-32); CHLORIDE 103 MMOL/L (98-107); CREATININE SERUM 0.88 MG/DL (0.60-1.30); GFR ESTIMATED > 60; GLUCOSE 144 MG/DL (70-105); POTASSIUM 3.8 MMOL/L (3.6-5.0); SODIUM 139 MMOL/L (135-145)
[2017-01-01 09:07] LABS: BASOPHILS % (AUTO) 1 % (0-10); EOSINOPHILS # (AUTO) 0.1 10^3/uL (0.0-0.3); EOSINOPHILS % (AUTO) 2 % (0-10); LYMPHOCYTES # (AUTO) 1.4 X 10^3 (1.0-4.0); LYMPHOCYTES % (AUTO) 26 % (12-44); MEAN CORPUSCULAR HEMOGLOBIN 29 PG (25-34); MEAN CORPUSCULAR HGB CONC 34 G/DL (32-36); MEAN CORPUSCULAR VOLUME 86 FL (80-99); MEAN PLATELET VOLUME 9.8 FL (7.4-10.4); MONOCYTES # (AUTO) 0.3 X 10^3 (0.0-1.0); MONOCYTES % (AUTO) 5 % (0-12); NEUTROPHILS # (AUTO) 3.5 X 10^3 (1.8-7.8); NEUTROPHILS % (AUTO) 66 % (42-75); PLATELET COUNT 240 10^3/uL (130-400); RED BLOOD COUNT 4.46 10^6/uL (4.35-5.85); RED CELL DISTRIBUTION WIDTH 15.8 % (10.0-14.5); WHITE BLOOD COUNT 5.4 10^3/uL (4.3-11.0)
[2017-01-01 09:28] LABS: ANION GAP 12 MMOL/L (5-14); BLOOD UREA NITROGEN 15 MG/DL (7-18); BUN/CREATININE RATIO 20; CALCIUM 9.6 MG/DL (8.5-10.1); CARBON DIOXIDE 24 MMOL/L (21-32); CHLORIDE 103 MMOL/L (98-107); CREATININE SERUM 0.75 MG/DL (0.60-1.30); GFR ESTIMATED > 60; GLUCOSE 143 MG/DL (70-105); POTASSIUM 3.6 MMOL/L (3.6-5.0); SODIUM 139 MMOL/L (135-145)
[2017-01-08 09:02] LABS: BASOPHILS # (AUTO) 0.1 10^3/uL (0.0-0.1); BASOPHILS % (AUTO) 1 % (0-10); EOSINOPHILS # (AUTO) 0.1 10^3/uL (0.0-0.3); EOSINOPHILS % (AUTO) 2 % (0-10); LYMPHOCYTES # (AUTO) 1.3 X 10^3 (1.0-4.0); LYMPHOCYTES % (AUTO) 26 % (12-44); MEAN CORPUSCULAR HEMOGLOBIN 29 PG (25-34); MEAN CORPUSCULAR HGB CONC 34 G/DL (32-36); MEAN CORPUSCULAR VOLUME 87 FL (80-99); MEAN PLATELET VOLUME 9.9 FL (7.4-10.4); MONOCYTES # (AUTO) 0.3 X 10^3 (0.0-1.0); MONOCYTES % (AUTO) 6 % (0-12); NEUTROPHILS # (AUTO) 3.3 X 10^3 (1.8-7.8); NEUTROPHILS % (AUTO) 65 % (42-75); PLATELET COUNT 257 10^3/uL (130-400); RED BLOOD COUNT 4.52 10^6/uL (4.35-5.85); RED CELL DISTRIBUTION WIDTH 16.1 % (10.0-14.5); WHITE BLOOD COUNT 5.1 10^3/uL (4.3-11.0)
[2017-01-08 09:23] LABS: ANION GAP 11 MMOL/L (5-14); BLOOD UREA NITROGEN 13 MG/DL (7-18); BUN/CREATININE RATIO 15; CALCIUM 9.5 MG/DL (8.5-10.1); CARBON DIOXIDE 24 MMOL/L (21-32); CHLORIDE 104 MMOL/L (98-107); CREATININE SERUM 0.85 MG/DL (0.60-1.30); GFR ESTIMATED > 60; GLUCOSE 141 MG/DL (70-105); POTASSIUM 3.5 MMOL/L (3.6-5.0); SODIUM 139 MMOL/L (135-145)
[2017-01-15 09:06] LABS: BASOPHILS # (AUTO) 0.1 10^3/uL (0.0-0.1); BASOPHILS % (AUTO) 1 % (0-10); EOSINOPHILS # (AUTO) 0.1 10^3/uL (0.0-0.3); EOSINOPHILS % (AUTO) 1 % (0-10); LYMPHOCYTES # (AUTO) 1.6 X 10^3 (1.0-4.0); LYMPHOCYTES % (AUTO) 26 % (12-44); MEAN CORPUSCULAR HEMOGLOBIN 29 PG (25-34); MEAN CORPUSCULAR HGB CONC 33 G/DL (32-36); MEAN CORPUSCULAR VOLUME 87 FL (80-99); MEAN PLATELET VOLUME 9.5 FL (7.4-10.4); MONOCYTES # (AUTO) 0.4 X 10^3 (0.0-1.0); MONOCYTES % (AUTO) 7 % (0-12); NEUTROPHILS # (AUTO) 3.8 X 10^3 (1.8-7.8); NEUTROPHILS % (AUTO) 64 % (42-75); PLATELET COUNT 251 10^3/uL (130-400); RED BLOOD COUNT 4.67 10^6/uL (4.35-5.85); RED CELL DISTRIBUTION WIDTH 15.8 % (10.0-14.5); WHITE BLOOD COUNT 5.9 10^3/uL (4.3-11.0)
[2017-01-15 09:40] LABS: ALANINE AMINOTRANSFERASE 13 U/L (0-55); ANION GAP 11 MMOL/L (5-14); ASPARTATE AMINO TRANSFERASE 10 U/L (5-34); BILIRUBIN,TOTAL 0.7 MG/DL (0.1-1.0); BLOOD UREA NITROGEN 13 MG/DL (7-18); BUN/CREATININE RATIO 16; CALCIUM 9.5 MG/DL (8.5-10.1); CARBON DIOXIDE 26 MMOL/L (21-32); CHLORIDE 104 MMOL/L (98-107); CREATININE SERUM 0.82 MG/DL (0.60-1.30); GFR ESTIMATED > 60; GLUCOSE 154 MG/DL (70-105); POTASSIUM 3.4 MMOL/L (3.6-5.0); SODIUM 141 MMOL/L (135-145); TOTAL PROTEIN 6.8 GM/DL (6.4-8.2)
[2017-01-22 09:13] LABS: BASOPHILS # (AUTO) 0.1 10^3/uL (0.0-0.1); BASOPHILS % (AUTO) 1 % (0-10); EOSINOPHILS # (AUTO) 0.1 10^3/uL (0.0-0.3); EOSINOPHILS % (AUTO) 2 % (0-10); LYMPHOCYTES # (AUTO) 1.6 X 10^3 (1.0-4.0); LYMPHOCYTES % (AUTO) 24 % (12-44); MEAN CORPUSCULAR HEMOGLOBIN 29 PG (25-34); MEAN CORPUSCULAR HGB CONC 34 G/DL (32-36); MEAN CORPUSCULAR VOLUME 86 FL (80-99); MEAN PLATELET VOLUME 9.8 FL (7.4-10.4); MONOCYTES # (AUTO) 0.3 X 10^3 (0.0-1.0); MONOCYTES % (AUTO) 4 % (0-12); NEUTROPHILS # (AUTO) 4.6 X 10^3 (1.8-7.8); NEUTROPHILS % (AUTO) 70 % (42-75); PLATELET COUNT 254 10^3/uL (130-400); RED BLOOD COUNT 4.56 10^6/uL (4.35-5.85); RED CELL DISTRIBUTION WIDTH 15.5 % (10.0-14.5); WHITE BLOOD COUNT 6.6 10^3/uL (4.3-11.0)
[2017-01-22 09:33] LABS: CALCIUM 8.9 MG/DL (8.5-10.1); CREATININE SERUM 0.95 MG/DL (0.60-1.30)
[2017-01-29 09:24] LABS: BASOPHILS # (AUTO) 0.1 10^3/uL (0.0-0.1); BASOPHILS % (AUTO) 1 % (0-10); EOSINOPHILS # (AUTO) 0.1 10^3/uL (0.0-0.3); EOSINOPHILS % (AUTO) 2 % (0-10); LYMPHOCYTES # (AUTO) 1.5 X 10^3 (1.0-4.0); LYMPHOCYTES % (AUTO) 32 % (12-44); MEAN CORPUSCULAR HEMOGLOBIN 29 PG (25-34); MEAN CORPUSCULAR HGB CONC 33 G/DL (32-36); MEAN CORPUSCULAR VOLUME 86 FL (80-99); MEAN PLATELET VOLUME 10.2 FL (7.4-10.4); MONOCYTES # (AUTO) 0.2 X 10^3 (0.0-1.0); MONOCYTES % (AUTO) 5 % (0-12); NEUTROPHILS # (AUTO) 2.8 X 10^3 (1.8-7.8); NEUTROPHILS % (AUTO) 61 % (42-75); PLATELET COUNT 224 10^3/uL (130-400); RED BLOOD COUNT 4.54 10^6/uL (4.35-5.85); RED CELL DISTRIBUTION WIDTH 15.4 % (10.0-14.5); WHITE BLOOD COUNT 4.7 10^3/uL (4.3-11.0)
[2017-01-29 09:42] LABS: ANION GAP 13 MMOL/L (5-14); BLOOD UREA NITROGEN 13 MG/DL (7-18); BUN/CREATININE RATIO 15; CALCIUM 9.3 MG/DL (8.5-10.1); CARBON DIOXIDE 24 MMOL/L (21-32); CHLORIDE 104 MMOL/L (98-107); CREATININE SERUM 0.85 MG/DL (0.60-1.30); GFR ESTIMATED > 60; GLUCOSE 173 MG/DL (70-105); POTASSIUM 3.8 MMOL/L (3.6-5.0); SODIUM 141 MMOL/L (135-145)
[2017-02-05 09:27] LABS: BASOPHILS % (AUTO) 1 % (0-10); EOSINOPHILS # (AUTO) 0.1 10^3/uL (0.0-0.3); EOSINOPHILS % (AUTO) 2 % (0-10); LYMPHOCYTES # (AUTO) 1.2 X 10^3 (1.0-4.0); LYMPHOCYTES % (AUTO) 30 % (12-44); MEAN CORPUSCULAR HEMOGLOBIN 29 PG (25-34); MEAN CORPUSCULAR HGB CONC 33 G/DL (32-36); MEAN CORPUSCULAR VOLUME 87 FL (80-99); MEAN PLATELET VOLUME 10.2 FL (7.4-10.4); MONOCYTES # (AUTO) 0.2 X 10^3 (0.0-1.0); MONOCYTES % (AUTO) 6 % (0-12); NEUTROPHILS # (AUTO) 2.4 X 10^3 (1.8-7.8); NEUTROPHILS % (AUTO) 62 % (42-75); PLATELET COUNT 231 10^3/uL (130-400); RED CELL DISTRIBUTION WIDTH 16.1 % (10.0-14.5); WHITE BLOOD COUNT 3.9 10^3/uL (4.3-11.0)
[2017-02-05 09:49] LABS: ANION GAP 15 MMOL/L (5-14); BLOOD UREA NITROGEN 13 MG/DL (7-18); BUN/CREATININE RATIO 15; CALCIUM 9.4 MG/DL (8.5-10.1); CARBON DIOXIDE 21 MMOL/L (21-32); CHLORIDE 105 MMOL/L (98-107); CREATININE SERUM 0.86 MG/DL (0.60-1.30); GFR ESTIMATED > 60; GLUCOSE 141 MG/DL (70-105); POTASSIUM 3.7 MMOL/L (3.6-5.0); SODIUM 141 MMOL/L (135-145)
[2017-02-12 09:32] LABS: BASOPHILS # (AUTO) 0.1 10^3/uL (0.0-0.1); BASOPHILS % (AUTO) 1 % (0-10); EOSINOPHILS # (AUTO) 0.1 10^3/uL (0.0-0.3); EOSINOPHILS % (AUTO) 1 % (0-10); LYMPHOCYTES # (AUTO) 1.3 X 10^3 (1.0-4.0); LYMPHOCYTES % (AUTO) 21 % (12-44); MEAN CORPUSCULAR HEMOGLOBIN 29 PG (25-34); MEAN CORPUSCULAR HGB CONC 33 G/DL (32-36); MEAN CORPUSCULAR VOLUME 87 FL (80-99); MEAN PLATELET VOLUME 9.8 FL (7.4-10.4); MONOCYTES # (AUTO) 0.4 X 10^3 (0.0-1.0); MONOCYTES % (AUTO) 6 % (0-12); NEUTROPHILS # (AUTO) 4.4 X 10^3 (1.8-7.8); NEUTROPHILS % (AUTO) 70 % (42-75); PLATELET COUNT 236 10^3/uL (130-400); RED BLOOD COUNT 4.81 10^6/uL (4.35-5.85); RED CELL DISTRIBUTION WIDTH 15.9 % (10.0-14.5); WHITE BLOOD COUNT 6.3 10^3/uL (4.3-11.0)
[2017-02-12 09:50] LABS: ALANINE AMINOTRANSFERASE 22 U/L (0-55); ANION GAP 13 MMOL/L (5-14); ASPARTATE AMINO TRANSFERASE 20 U/L (5-34); BLOOD UREA NITROGEN 20 MG/DL (7-18); BUN/CREATININE RATIO 22; CALCIUM 9.3 MG/DL (8.5-10.1); CARBON DIOXIDE 25 MMOL/L (21-32); CHLORIDE 102 MMOL/L (98-107); CREATININE SERUM 0.89 MG/DL (0.60-1.30); GFR ESTIMATED > 60; GLUCOSE 161 MG/DL (70-105); POTASSIUM 4.1 MMOL/L (3.6-5.0); SODIUM 140 MMOL/L (135-145); TOTAL PROTEIN 7.2 GM/DL (6.4-8.2)
[~2017-02-18] VITALS: Ht 172.7 cm; Wt 108.0 kg
[~2017-02-18 08:21] MED LIST changes: +DEXAMETHASONE IV SCH; +NS IV 1000 ML (CANCER CTR) IV SCH; +NS IV SCH; +ONDANSETRON IV SCH; +PACLitaxel PROTEIN 180 MG in EMPTY IV BAG (PVC) CANCER CTR 1 EA IV SCH; +TRASTUZUMAB IV SCH; +[UNRECOGNIZED DRUG - OTHER] IV SCH
[2017-02-18] MEDS ORDERED: TRASTUZUMAB IV SCH (09:30)
[2017-02-18] MEDS ORDERED: NS IV SCH (09:30)
[2017-02-18 09:58] LABS: ANION GAP 12 MMOL/L (5-14); BLOOD UREA NITROGEN 17 MG/DL (7-18); BUN/CREATININE RATIO 20; CALCIUM 9.5 MG/DL (8.5-10.1); CARBON DIOXIDE 25 MMOL/L (21-32); CHLORIDE 101 MMOL/L (98-107); CREATININE SERUM 0.85 MG/DL (0.60-1.30); GFR ESTIMATED > 60; GLUCOSE 157 MG/DL (70-105); POTASSIUM 3.8 MMOL/L (3.6-5.0); SODIUM 138 MMOL/L (135-145)
== END 2017-02-25 | disposition home or self-care (01) ==
LOC: ONC 08:21
PROVIDERS: ATTEND Internal Medicine Hematology & Oncology
DX: Z51.11 Encounter for antineoplastic chemotherapy (principal); C50.412 Malignant neoplasm of upper-outer quadrant of left female breast; C79.51 Secondary malignant neoplasm of bone; M79.89 Other specified soft tissue disorders; G62.0 Drug-induced polyneuropathy; T45.1X5A Adverse effect of antineoplastic and immunosuppressive drugs, initial encounter; Z85.43 Personal history of malignant neoplasm of ovary; Z90.710 Acquired absence of both cervix and uterus; Z92.3 Personal history of irradiation; Z79.899 Other long term (current) drug therapy
CPT/HCPCS: 36591; 80048; 80053; 85025; 86300; 96375; 96413; 96417; 99213

== ENCOUNTER 2017-02-26 08:41 | Outpatient (RCR) | payer BC ==
[~2017-02-26 08:41] MED LIST changes: -DEXAMETHASONE IV SCH; -ONDANSETRON IV SCH; -PACLitaxel PROTEIN 180 MG in EMPTY IV BAG (PVC) CANCER CTR 1 EA IV SCH; -[UNRECOGNIZED DRUG - OTHER] IV SCH
== END 2017-03-01 | disposition home or self-care (01) ==
LOC: ONC 08:41
PROVIDERS: ATTEND Internal Medicine Hematology & Oncology
DX: Z51.81 Encounter for therapeutic drug level monitoring (principal); C50.412 Malignant neoplasm of upper-outer quadrant of left female breast; C79.51 Secondary malignant neoplasm of bone; M79.89 Other specified soft tissue disorders; Z85.43 Personal history of malignant neoplasm of ovary; Z90.710 Acquired absence of both cervix and uterus; Z92.3 Personal history of irradiation; Z79.899 Other long term (current) drug therapy
CPT/HCPCS: 96413

== ENCOUNTER 2017-04-09 08:39 | Outpatient (RCR) | payer BC ==
[2017-03-18 12:02] LABS: BASOPHILS # (AUTO) 0.1 10^3/uL (0.0-0.1); BASOPHILS % (AUTO) 1 % (0-10); EOSINOPHILS # (AUTO) 0.1 10^3/uL (0.0-0.3); EOSINOPHILS % (AUTO) 3 % (0-10); LYMPHOCYTES # (AUTO) 1.5 X 10^3 (1.0-4.0); LYMPHOCYTES % (AUTO) 30 % (12-44); MEAN CORPUSCULAR HEMOGLOBIN 28 PG (25-34); MEAN CORPUSCULAR HGB CONC 33 G/DL (32-36); MEAN CORPUSCULAR VOLUME 85 FL (80-99); MEAN PLATELET VOLUME 10.2 FL (7.4-10.4); MONOCYTES # (AUTO) 0.3 X 10^3 (0.0-1.0); MONOCYTES % (AUTO) 5 % (0-12); NEUTROPHILS # (AUTO) 3.2 X 10^3 (1.8-7.8); NEUTROPHILS % (AUTO) 62 % (42-75); PLATELET COUNT 183 10^3/uL (130-400); RED BLOOD COUNT 4.85 10^6/uL (4.35-5.85); RED CELL DISTRIBUTION WIDTH 14.4 % (10.0-14.5); WHITE BLOOD COUNT 5.2 10^3/uL (4.3-11.0)
[2017-03-18 12:19] LABS: BILIRUBIN,TOTAL 0.7 MG/DL (0.1-1.0); CALCIUM 9.5 MG/DL (8.5-10.1); CREATININE SERUM 1.1 MG/DL (0.60-1.30); POTASSIUM 3.7 MMOL/L (3.6-5.0)
[~2017-04-09] VITALS: Ht 172.7 cm; Wt 107.0 kg
== END 2017-04-15 10:25 | disposition home or self-care (01) ==
LOC: ONC 08:39
PROVIDERS: ATTEND Internal Medicine Hematology & Oncology
DX: Z51.81 Encounter for therapeutic drug level monitoring (principal); C50.412 Malignant neoplasm of upper-outer quadrant of left female breast; C79.51 Secondary malignant neoplasm of bone; M79.89 Other specified soft tissue disorders; Z85.43 Personal history of malignant neoplasm of ovary; Z90.710 Acquired absence of both cervix and uterus; Z92.3 Personal history of irradiation; Z79.899 Other long term (current) drug therapy
CPT/HCPCS: 36591; 80053; 85025; 86300; 96413

== ENCOUNTER → 2017-04-29 | Outpatient (CLI) | payer BC ==
[~2017-04-29] MED LIST changes: +BARIUM SUSPENSION 2.1% (VANILLA SILQ) 450 ML PO ONE; +CATHETER FLUSH 10 ML SYR IV PRN; +IOHEXOL 350 MG/ML 100 ML (OMNIPAQUE 350) VIAL IV ONE; +NS 100 ML (IVPB) BAG IV ONE; -NS IV 1000 ML (CANCER CTR) IV SCH; -NS IV SCH; -TRASTUZUMAB IV SCH
--- NOTE | 2017-04-29 16:16 | Diagnostic Imaging Report ---
Whole body bone scan. Technique: After the intravenous administration of 26.4 mCi of Technetium 99m MDP, whole body delayed phase bone scan images were obtained with lateral views of the head and neck and the chest regions. Indication: Breast cancer. Findings: There are mild areas of increased uptake seen in the spine and in a similar pattern to the previous exam of 01/10/2017 favored to be degenerative. Previously seen left lower rib uptake is improved suggestive of trauma related activity. There is mild to moderate activity at multiple joints including the shoulders, the knees and around the ankles and feet. The urinary bladder and kidney excretion related activity is also noted. IMPRESSION: Mild multifocal spine activity is favored to be degenerative similar to 01/10/2017. No definite evidence of osseous metastasis. Dictated by: Dictated on workstation # [id number]
--- NOTE | 2017-04-29 20:36 | Diagnostic Imaging Report ---
PROCEDURE: CT chest, abdomen, and pelvis with contrast. TECHNIQUE: Multiple contiguous axial images were obtained through the chest, abdomen, and pelvis after the administration of intravenous contrast. INDICATION: Breast cancer. COMPARISON: Exam compared with study from 01/10/2017. CHEST: No pulmonary nodule or evidence for pulmonary parenchymal metastases. Tiny subcentimeter right paramedian pretracheal lymph node is stable. A tiny subcentimeter node in the AP window is stable. No pathological appearing or morphologically distorted thoracic lymph nodes. The axillae were unremarkable. There is no pleural or pericardial effusion. No pneumonia. ABDOMEN AND PELVIS: Ventral supra- and infra-umbilical abdominal wall hernia is nonobstructing and stable. Cholelithiasis is stable. There is no liver mass. The spleen, adrenals, and pancreas are unremarkable. There is no mesenteric or retroperitoneal lymphadenopathy. The uterus is absent. There is no adnexal lesion. The urinary bladder is unremarkable. Ventral to the unobstructed right ureter at the level of the caudal tip of the right renal lower pole, there is a 1.3 cm lymph node right lateral of the cava, increased from prior, of uncertain etiology. No other potential pathological appearing abdominal or pelvic mesenteric or retroperitoneal nodes are found. OSSEOUS STRUCTURES: Multiple patchy osteoblastic predominately vertebral body as well as few rib lesions showed no change from previous exam. No pathological fracture, and no frankly lytic or destructive process. There is chronic thoracolumbar spondylosis with lower lumbar chronic stenosis. 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 CHEST: No findings of pulmonary parenchymal metastases. A few mediastinal lymph nodes, not pathologic and unchanged. ABDOMEN AND PELVIS: Nonobstructing ventral hernia. Negative liver. Negative adrenals. Cholelithiasis. A lymph node lateral to the cava just above its bifurcation is mildly prominent and somewhat irregular, indeterminate, from prior reflects a change from the previous exam. There was no other potential abdominal or pelvic soft tissue metastasis. Dictated by: Dictated on workstation # [id number]
== END ==
LOC: CARD 12:01
PROVIDERS: ATTEND Internal Medicine Hematology & Oncology
DX: C50.412 Malignant neoplasm of upper-outer quadrant of left female breast (principal); C79.51 Secondary malignant neoplasm of bone
CPT/HCPCS: 71260; 74177; 78306

== ENCOUNTER 2017-05-14 08:42 | Outpatient (RCR) | payer BC ==
[2017-04-16 08:49] LABS: BASOPHILS # (AUTO) 0.1 10^3/uL (0.0-0.1); BASOPHILS % (AUTO) 1 % (0-10); EOSINOPHILS # (AUTO) 0.1 10^3/uL (0.0-0.3); EOSINOPHILS % (AUTO) 1 % (0-10); HEMATOCRIT 44 % (35-52); HEMOGLOBIN 14.7 G/DL (11.5-16.0); LYMPHOCYTES # (AUTO) 1.8 X 10^3 (1.0-4.0); LYMPHOCYTES % (AUTO) 27 % (12-44); MEAN CORPUSCULAR HEMOGLOBIN 28 PG (25-34); MEAN CORPUSCULAR HGB CONC 34 G/DL (32-36); MEAN CORPUSCULAR VOLUME 83 FL (80-99); MEAN PLATELET VOLUME 9.9 FL (7.4-10.4); MONOCYTES # (AUTO) 0.3 X 10^3 (0.0-1.0); MONOCYTES % (AUTO) 4 % (0-12); NEUTROPHILS # (AUTO) 4.4 X 10^3 (1.8-7.8); NEUTROPHILS % (AUTO) 66 % (42-75); PLATELET COUNT 195 10^3/uL (130-400); RED BLOOD COUNT 5.27 10^6/uL (4.35-5.85); RED CELL DISTRIBUTION WIDTH 14.2 % (10.0-14.5); WHITE BLOOD COUNT 6.6 10^3/uL (4.3-11.0)
[2017-04-16 09:13] LABS: ALBUMIN 4.1 GM/DL (3.2-4.5); BILIRUBIN,TOTAL 0.7 MG/DL (0.1-1.0); CALCIUM 9.5 MG/DL (8.5-10.1); CREATININE SERUM 1.06 MG/DL (0.60-1.30); TOTAL PROTEIN 6.9 GM/DL (6.4-8.2)
[~2017-05-14 08:42] MED LIST changes: +NS IV 1000 ML (CANCER CTR) IV SCH; +NS IV SCH; +TRASTUZUMAB IV SCH
[2017-05-14 09:06] LABS: BASOPHILS % (AUTO) 1 % (0-10); EOSINOPHILS # (AUTO) 0.1 10^3/uL (0.0-0.3); EOSINOPHILS % (AUTO) 2 % (0-10); HEMATOCRIT 45 % (35-52); HEMOGLOBIN 15.2 G/DL (11.5-16.0); LYMPHOCYTES # (AUTO) 1.6 X 10^3 (1.0-4.0); LYMPHOCYTES % (AUTO) 27 % (12-44); MEAN CORPUSCULAR HEMOGLOBIN 28 PG (25-34); MEAN CORPUSCULAR HGB CONC 34 G/DL (32-36); MEAN CORPUSCULAR VOLUME 82 FL (80-99); MEAN PLATELET VOLUME 9.6 FL (7.4-10.4); MONOCYTES # (AUTO) 0.3 X 10^3 (0.0-1.0); MONOCYTES % (AUTO) 5 % (0-12); NEUTROPHILS % (AUTO) 66 % (42-75); PLATELET COUNT 188 10^3/uL (130-400); RED BLOOD COUNT 5.45 10^6/uL (4.35-5.85); RED CELL DISTRIBUTION WIDTH 14.7 % (10.0-14.5); WHITE BLOOD COUNT 6.1 10^3/uL (4.3-11.0)
[2017-05-14 09:26] LABS: ALANINE AMINOTRANSFERASE 17 U/L (0-55); ALBUMIN 4.2 GM/DL (3.2-4.5); ALKALINE PHOSPHATASE 91 U/L (40-136); BILIRUBIN,TOTAL 0.9 MG/DL (0.1-1.0); BUN/CREATININE RATIO 20; CALCIUM 9.8 MG/DL (8.5-10.1); CARBON DIOXIDE 24 MMOL/L (21-32); CHLORIDE 102 MMOL/L (98-107); CREATININE SERUM 0.87 MG/DL (0.60-1.30); GFR ESTIMATED > 60; GLUCOSE 120 MG/DL (70-105); POTASSIUM 3.6 MMOL/L (3.6-5.0); SODIUM 139 MMOL/L (135-145); TOTAL PROTEIN 7.2 GM/DL (6.4-8.2)
== END 2017-06-11 08:50 | disposition home or self-care (01) ==
LOC: ONC 08:42
PROVIDERS: ATTEND Internal Medicine Hematology & Oncology
DX: Z51.11 Encounter for antineoplastic chemotherapy (principal); C50.412 Malignant neoplasm of upper-outer quadrant of left female breast; C79.51 Secondary malignant neoplasm of bone; Z85.43 Personal history of malignant neoplasm of ovary; Z90.710 Acquired absence of both cervix and uterus; Z92.3 Personal history of irradiation; Z79.899 Other long term (current) drug therapy
CPT/HCPCS: 36591; 80053; 85025; 86300; 96413

== ENCOUNTER → 2017-05-14 | Outpatient (CLI) | payer BC ==
[~2017-05-14] MED LIST changes: -BARIUM SUSPENSION 2.1% (VANILLA SILQ) 450 ML PO ONE; -CATHETER FLUSH 10 ML SYR IV PRN; -IOHEXOL 350 MG/ML 100 ML (OMNIPAQUE 350) VIAL IV ONE; -NS 100 ML (IVPB) BAG IV ONE
== END ==
LOC: LAB 08:44
PROVIDERS: ATTEND Family Medicine
DX: E11.9 Type 2 diabetes mellitus without complications (principal)
CPT/HCPCS: 36415; 83036

== ENCOUNTER → 2017-05-16 | Outpatient (CLI) | payer BC ==
[~2017-05-16] MED LIST changes: -NS IV 1000 ML (CANCER CTR) IV SCH; -NS IV SCH; -TRASTUZUMAB IV SCH
== END ==
LOC: CARD 12:45
PROVIDERS: ATTEND Internal Medicine Hematology & Oncology
DX: C50.412 Malignant neoplasm of upper-outer quadrant of left female breast (principal); C79.51 Secondary malignant neoplasm of bone
CPT/HCPCS: 93306

== ENCOUNTER 2017-09-03 10:10 | Outpatient (RCR) | payer BC ==
[2017-06-11 09:19] LABS: BASOPHILS # (AUTO) 0.1 10^3/uL (0.0-0.1); BASOPHILS % (AUTO) 1 % (0-10); EOSINOPHILS # (AUTO) 0.1 10^3/uL (0.0-0.3); EOSINOPHILS % (AUTO) 1 % (0-10); HEMATOCRIT 41 % (35-52); HEMOGLOBIN 14.4 G/DL (11.5-16.0); LYMPHOCYTES # (AUTO) 1.8 X 10^3 (1.0-4.0); LYMPHOCYTES % (AUTO) 21 % (12-44); MEAN CORPUSCULAR HEMOGLOBIN 28 PG (25-34); MEAN CORPUSCULAR HGB CONC 35 G/DL (32-36); MEAN CORPUSCULAR VOLUME 80 FL (80-99); MEAN PLATELET VOLUME 9.4 FL (7.4-10.4); MONOCYTES # (AUTO) 0.4 X 10^3 (0.0-1.0); MONOCYTES % (AUTO) 5 % (0-12); NEUTROPHILS % (AUTO) 72 % (42-75); PLATELET COUNT 286 10^3/uL (130-400); RED BLOOD COUNT 5.09 10^6/uL (4.35-5.85); RED CELL DISTRIBUTION WIDTH 14.5 % (10.0-14.5); WHITE BLOOD COUNT 8.4 10^3/uL (4.3-11.0)
[2017-06-11 09:40] LABS: ALBUMIN 3.9 GM/DL (3.2-4.5); BILIRUBIN,TOTAL 0.5 MG/DL (0.1-1.0); CALCIUM 9.6 MG/DL (8.5-10.1); CREATININE SERUM 1.11 MG/DL (0.60-1.30); POTASSIUM 4.2 MMOL/L (3.6-5.0); TOTAL PROTEIN 7.1 GM/DL (6.4-8.2)
[2017-07-09 10:54] LABS: BASOPHILS # (AUTO) 0.1 10^3/uL (0.0-0.1); BASOPHILS % (AUTO) 1 % (0-10); EOSINOPHILS # (AUTO) 0.1 10^3/uL (0.0-0.3); EOSINOPHILS % (AUTO) 2 % (0-10); HEMATOCRIT 43 % (35-52); HEMOGLOBIN 15.1 G/DL (11.5-16.0); LYMPHOCYTES # (AUTO) 1.8 X 10^3 (1.0-4.0); LYMPHOCYTES % (AUTO) 28 % (12-44); MEAN CORPUSCULAR HEMOGLOBIN 28 PG (25-34); MEAN CORPUSCULAR HGB CONC 35 G/DL (32-36); MEAN CORPUSCULAR VOLUME 81 FL (80-99); MONOCYTES # (AUTO) 0.4 X 10^3 (0.0-1.0); MONOCYTES % (AUTO) 6 % (0-12); NEUTROPHILS % (AUTO) 64 % (42-75); PLATELET COUNT 185 10^3/uL (130-400); RED BLOOD COUNT 5.36 10^6/uL (4.35-5.85); WHITE BLOOD COUNT 6.3 10^3/uL (4.3-11.0)
[2017-07-09 11:15] LABS: ALBUMIN 4.2 GM/DL (3.2-4.5); BILIRUBIN,TOTAL 0.6 MG/DL (0.1-1.0); CALCIUM 9.6 MG/DL (8.5-10.1); CREATININE SERUM 0.95 MG/DL (0.60-1.30); TOTAL PROTEIN 7.4 GM/DL (6.4-8.2)
[2017-08-06 09:14] LABS: BASOPHILS # (AUTO) 0.1 10^3/uL (0.0-0.1); BASOPHILS % (AUTO) 1 % (0-10); EOSINOPHILS # (AUTO) 0.1 10^3/uL (0.0-0.3); EOSINOPHILS % (AUTO) 2 % (0-10); HEMATOCRIT 44 % (35-52); HEMOGLOBIN 15.4 G/DL (11.5-16.0); LYMPHOCYTES % (AUTO) 27 % (12-44); MEAN CORPUSCULAR HEMOGLOBIN 29 PG (25-34); MEAN CORPUSCULAR HGB CONC 35 G/DL (32-36); MEAN CORPUSCULAR VOLUME 83 FL (80-99); MEAN PLATELET VOLUME 9.8 FL (7.4-10.4); MONOCYTES # (AUTO) 0.4 X 10^3 (0.0-1.0); MONOCYTES % (AUTO) 6 % (0-12); NEUTROPHILS # (AUTO) 4.8 X 10^3 (1.8-7.8); NEUTROPHILS % (AUTO) 65 % (42-75); PLATELET COUNT 218 10^3/uL (130-400); RED BLOOD COUNT 5.31 10^6/uL (4.35-5.85); RED CELL DISTRIBUTION WIDTH 14.6 % (10.0-14.5); WHITE BLOOD COUNT 7.4 10^3/uL (4.3-11.0)
[2017-08-06 09:36] LABS: ALBUMIN 4.4 GM/DL (3.2-4.5); BILIRUBIN,TOTAL 0.9 MG/DL (0.1-1.0); CALCIUM 9.8 MG/DL (8.5-10.1); CREATININE SERUM 0.95 MG/DL (0.60-1.30); TOTAL PROTEIN 7.2 GM/DL (6.4-8.2)
[~2017-09-03] VITALS: Ht 172.7 cm; Wt 101.6 kg
[~2017-09-03 10:10] MED LIST changes: +NS IV 1000 ML (CANCER CTR) IV SCH; +NS IV ONE; +NS IV SCH; +TRASTUZUMAB IV ONE; +TRASTUZUMAB IV SCH
[2017-09-03 10:35] LABS: BASOPHILS # (AUTO) 0.1 10^3/uL (0.0-0.1); BASOPHILS % (AUTO) 1 % (0-10); EOSINOPHILS # (AUTO) 0.1 10^3/uL (0.0-0.3); EOSINOPHILS % (AUTO) 2 % (0-10); HEMATOCRIT 45 % (35-52); HEMOGLOBIN 15.7 G/DL (11.5-16.0); LYMPHOCYTES # (AUTO) 1.8 X 10^3 (1.0-4.0); LYMPHOCYTES % (AUTO) 30 % (12-44); MEAN CORPUSCULAR HEMOGLOBIN 29 PG (25-34); MEAN CORPUSCULAR HGB CONC 35 G/DL (32-36); MEAN CORPUSCULAR VOLUME 83 FL (80-99); MEAN PLATELET VOLUME 9.9 FL (7.4-10.4); MONOCYTES # (AUTO) 0.3 X 10^3 (0.0-1.0); MONOCYTES % (AUTO) 5 % (0-12); NEUTROPHILS # (AUTO) 3.6 X 10^3 (1.8-7.8); NEUTROPHILS % (AUTO) 63 % (42-75); PLATELET COUNT 196 10^3/uL (130-400); RED BLOOD COUNT 5.44 10^6/uL (4.35-5.85); RED CELL DISTRIBUTION WIDTH 14.6 % (10.0-14.5); WHITE BLOOD COUNT 5.8 10^3/uL (4.3-11.0)
[2017-09-03 10:53] LABS: ALANINE AMINOTRANSFERASE 19 U/L (0-55); ALBUMIN 4.4 GM/DL (3.2-4.5); ALKALINE PHOSPHATASE 106 U/L (40-136); BILIRUBIN,TOTAL 0.8 MG/DL (0.1-1.0); BUN/CREATININE RATIO 18; CALCIUM 9.8 MG/DL (8.5-10.1); CARBON DIOXIDE 28 MMOL/L (21-32); CHLORIDE 100 MMOL/L (98-107); CREATININE SERUM 0.91 MG/DL (0.60-1.30); GFR ESTIMATED > 60; GLUCOSE 219 MG/DL (70-105); POTASSIUM 3.9 MMOL/L (3.6-5.0); SODIUM 138 MMOL/L (135-145); TOTAL PROTEIN 7.1 GM/DL (6.4-8.2)
== END 2017-09-09 | disposition home or self-care (01) ==
LOC: ONC 10:10
PROVIDERS: ATTEND Internal Medicine Hematology & Oncology
DX: Z51.11 Encounter for antineoplastic chemotherapy (principal); C50.412 Malignant neoplasm of upper-outer quadrant of left female breast; C79.51 Secondary malignant neoplasm of bone; Z85.43 Personal history of malignant neoplasm of ovary; Z90.710 Acquired absence of both cervix and uterus; Z92.3 Personal history of irradiation; Z79.899 Other long term (current) drug therapy
CPT/HCPCS: 36591; 80053; 85025; 86300; 86304; 96413

== ENCOUNTER → 2017-09-25 | Outpatient (CLI) | payer BC ==
[~2017-09-25] MED LIST changes: +BARIUM SUSPENSION 2.1% (VANILLA SILQ) 450 ML PO ONE; +CATHETER FLUSH 10 ML SYR IV PRN; +IOHEXOL 350 MG/ML 100 ML (OMNIPAQUE 350) VIAL IV ONE; +NS 250 ML (IVPB) BAG IV ONE; -NS IV 1000 ML (CANCER CTR) IV SCH; -NS IV ONE; -NS IV SCH; +RECEIVED CONTRAST (Hold Metformin) IV SCH; -TRASTUZUMAB IV ONE; -TRASTUZUMAB IV SCH
--- NOTE | 2017-09-25 13:10 | Diagnostic Imaging Report ---
PROCEDURE: CT chest with contrast, CT abdomen and pelvis with and without contrast. TECHNIQUE: Pre and post intravenous contrast axial imaging of the abdomen and pelvis and post contrast axial imaging of the chest were performed. INDICATION: Breast carcinoma. COMPARISON: Comparison is made with prior CT from 04/29/2017. FINDINGS: CT CHEST: A right chest wall port has tip overlying the SVC. No definite axillary lymphadenopathy is seen. There are multiple surgical clips in the left axilla. The left breast does demonstrate some skin thickening, likely post-therapeutic. No internal mammary lymphadenopathy is identified. No pathologically enlarged hilar or mediastinal lymph nodes are present. No pericardial or pleural fluid is identified. No parenchymal mass, nodule or infiltrate is seen. Scattered osteoblastic lesions within thoracic vertebral bodies and ribs appear stable. CT ABDOMEN AND PELVIS: No discrete liver mass is seen. Large stone within the gallbladder is again noted. The pancreas and spleen are unremarkable. No adrenal mass is seen. The kidneys are stable. Aorta is heavily calcified but not aneurysmal. Previously noted lymph node cephalad to the aortic bifurcation appears to be fairly stable approximately 14-15 mm transverse. A ventral hernia containing bowel loops is similar to prior exam. No bowel obstruction is seen. There is no free fluid identified. Bladder is decompressed. No inguinal or iliac lymphadenopathy is seen. Lumbar osteosclerotic lesions are stable. IMPRESSION: Overall stable CT of the chest, abdomen and pelvis when compared with prior exam from 04/29/2017. There is no evidence of thoracic lymphadenopathy or pulmonary metastatic disease. Retroperitoneal lymph node identified just lateral to the IVC appears stable. No new abnormality is detected. There appear to be stable osteoblastic lesions throughout the axial skeleton. Dictated by: Dictated on workstation # [id number]
--- NOTE | 2017-09-25 16:48 | Diagnostic Imaging Report ---
INDICATION: Breast carcinoma. TECHNIQUE: Patient was administered 25.1 mCi of technetium 99m MDP intravenously and whole body imaging was performed after a three-hour delay. COMPARISON: Correlation is made with prior whole body bone scan from 04/29/2017. FINDINGS: There is normal uptake of activity by the axial and appendicular skeleton. There is uptake by the kidneys with excretion into the urinary bladder. Mild uptake in bilateral feet appears degenerative. Vague uptake in the lower left rib is again seen and again may be traumatic. No new foci are seen. No findings to suggest osseous metastatic disease are identified. IMPRESSION: Stable whole body bone scan. There is no scintigraphic evidence of osseous metastatic disease. Dictated by: Dictated on workstation # [id number]
== END ==
LOC: CARD 11:08
PROVIDERS: ATTEND Internal Medicine Hematology & Oncology
DX: C50.412 Malignant neoplasm of upper-outer quadrant of left female breast (principal); C79.51 Secondary malignant neoplasm of bone
CPT/HCPCS: 71260; 74178; 78306

== ENCOUNTER → 2017-09-26 | Outpatient (CLI) | payer BC ==
[~2017-09-26] MED LIST changes: -BARIUM SUSPENSION 2.1% (VANILLA SILQ) 450 ML PO ONE; -CATHETER FLUSH 10 ML SYR IV PRN; -IOHEXOL 350 MG/ML 100 ML (OMNIPAQUE 350) VIAL IV ONE; -NS 250 ML (IVPB) BAG IV ONE; -RECEIVED CONTRAST (Hold Metformin) IV SCH
== END ==
LOC: CARD 12:44
PROVIDERS: ATTEND Internal Medicine Hematology & Oncology
DX: Z51.81 Encounter for therapeutic drug level monitoring (principal); C50.412 Malignant neoplasm of upper-outer quadrant of left female breast; C79.51 Secondary malignant neoplasm of bone
CPT/HCPCS: 93306

== ENCOUNTER 2017-12-04 08:33 | Outpatient (RCR) | payer BC ==
[2017-10-01 09:36] LABS: BASOPHILS # (AUTO) 0.1 10^3/uL (0.0-0.1); BASOPHILS % (AUTO) 1 % (0-10); EOSINOPHILS # (AUTO) 0.2 10^3/uL (0.0-0.3); EOSINOPHILS % (AUTO) 2 % (0-10); HEMATOCRIT 42 % (35-52); HEMOGLOBIN 14.8 G/DL (11.5-16.0); LYMPHOCYTES # (AUTO) 1.8 X 10^3 (1.0-4.0); LYMPHOCYTES % (AUTO) 29 % (12-44); MEAN CORPUSCULAR HEMOGLOBIN 29 PG (25-34); MEAN CORPUSCULAR HGB CONC 35 G/DL (32-36); MEAN CORPUSCULAR VOLUME 83 FL (80-99); MEAN PLATELET VOLUME 9.8 FL (7.4-10.4); MONOCYTES # (AUTO) 0.3 X 10^3 (0.0-1.0); MONOCYTES % (AUTO) 5 % (0-12); NEUTROPHILS % (AUTO) 63 % (42-75); PLATELET COUNT 205 10^3/uL (130-400); RED BLOOD COUNT 5.12 10^6/uL (4.35-5.85); RED CELL DISTRIBUTION WIDTH 14.6 % (10.0-14.5); WHITE BLOOD COUNT 6.3 10^3/uL (4.3-11.0)
[2017-10-01 10:00] LABS: ALANINE AMINOTRANSFERASE 15 U/L (0-55); ALBUMIN 4.2 GM/DL (3.2-4.5); ALKALINE PHOSPHATASE 99 U/L (40-136); BILIRUBIN,TOTAL 0.8 MG/DL (0.1-1.0); BUN/CREATININE RATIO 20; CALCIUM 9.7 MG/DL (8.5-10.1); CARBON DIOXIDE 28 MMOL/L (21-32); CHLORIDE 102 MMOL/L (98-107); CREATININE SERUM 0.89 MG/DL (0.60-1.30); GFR ESTIMATED > 60; GLUCOSE 207 MG/DL (70-105); POTASSIUM 4.3 MMOL/L (3.6-5.0); SODIUM 138 MMOL/L (135-145)
[2017-10-29 09:44] LABS: BASOPHILS # (AUTO) 0.1 10^3/uL (0.0-0.1); BASOPHILS % (AUTO) 1 % (0-10); EOSINOPHILS # (AUTO) 0.1 10^3/uL (0.0-0.3); EOSINOPHILS % (AUTO) 2 % (0-10); HEMATOCRIT 45 % (35-52); HEMOGLOBIN 15.6 G/DL (11.5-16.0); LYMPHOCYTES # (AUTO) 1.9 X 10^3 (1.0-4.0); LYMPHOCYTES % (AUTO) 27 % (12-44); MEAN CORPUSCULAR HEMOGLOBIN 29 PG (25-34); MEAN CORPUSCULAR HGB CONC 35 G/DL (32-36); MEAN CORPUSCULAR VOLUME 83 FL (80-99); MONOCYTES # (AUTO) 0.4 X 10^3 (0.0-1.0); MONOCYTES % (AUTO) 5 % (0-12); NEUTROPHILS # (AUTO) 4.6 X 10^3 (1.8-7.8); NEUTROPHILS % (AUTO) 65 % (42-75); PLATELET COUNT 175 10^3/uL (130-400); RED BLOOD COUNT 5.45 10^6/uL (4.35-5.85); RED CELL DISTRIBUTION WIDTH 14.5 % (10.0-14.5); WHITE BLOOD COUNT 7.1 10^3/uL (4.3-11.0)
[2017-10-29 10:12] LABS: BUN/CREATININE RATIO 25; CALCIUM 9.7 MG/DL (8.5-10.1); CARBON DIOXIDE 23 MMOL/L (21-32); CHLORIDE 102 MMOL/L (98-107); CREATININE SERUM 0.92 MG/DL (0.60-1.30); GFR ESTIMATED > 60; GLUCOSE 152 MG/DL (70-105); POTASSIUM 3.9 MMOL/L (3.6-5.0); SODIUM 138 MMOL/L (135-145)
[2017-10-29 10:35] LABS: ALANINE AMINOTRANSFERASE 18 U/L (0-55); ALBUMIN 4.4 GM/DL (3.2-4.5); ALKALINE PHOSPHATASE 99 U/L (40-136); TOTAL PROTEIN 7.2 GM/DL (6.4-8.2)
[2017-11-26 09:14] LABS: BASOPHILS # (AUTO) 0.1 10^3/uL (0.0-0.1); BASOPHILS % (AUTO) 1 % (0-10); EOSINOPHILS # (AUTO) 0.1 10^3/uL (0.0-0.3); EOSINOPHILS % (AUTO) 2 % (0-10); HEMATOCRIT 43 % (35-52); HEMOGLOBIN 14.7 G/DL (11.5-16.0); LYMPHOCYTES # (AUTO) 1.4 X 10^3 (1.0-4.0); LYMPHOCYTES % (AUTO) 26 % (12-44); MEAN CORPUSCULAR HEMOGLOBIN 29 PG (25-34); MEAN CORPUSCULAR HGB CONC 34 G/DL (32-36); MEAN CORPUSCULAR VOLUME 83 FL (80-99); MEAN PLATELET VOLUME 9.2 FL (7.4-10.4); MONOCYTES # (AUTO) 0.3 X 10^3 (0.0-1.0); MONOCYTES % (AUTO) 5 % (0-12); NEUTROPHILS # (AUTO) 3.6 X 10^3 (1.8-7.8); NEUTROPHILS % (AUTO) 66 % (42-75); PLATELET COUNT 196 10^3/uL (130-400); RED BLOOD COUNT 5.12 10^6/uL (4.35-5.85); RED CELL DISTRIBUTION WIDTH 14.4 % (10.0-14.5); WHITE BLOOD COUNT 5.5 10^3/uL (4.3-11.0)
[2017-11-26 09:32] LABS: ALBUMIN 4.2 GM/DL (3.2-4.5); BILIRUBIN,TOTAL 0.8 MG/DL (0.1-1.0); CALCIUM 9.6 MG/DL (8.5-10.1); CREATININE SERUM 0.95 MG/DL (0.60-1.30)
[~2017-12-04] VITALS: Ht 172.7 cm; Wt 102.5 kg
[~2017-12-04 08:33] MED LIST changes: +NS IV 500 ML (CANCER CENTER) IV SCH; +NS IV SCH; +TRASTUZUMAB IV SCH
== END 2017-12-09 | disposition home or self-care (01) ==
LOC: ONC 08:33
PROVIDERS: ATTEND Internal Medicine Hematology & Oncology
DX: Z51.11 Encounter for antineoplastic chemotherapy (principal); C50.412 Malignant neoplasm of upper-outer quadrant of left female breast; C79.51 Secondary malignant neoplasm of bone; Z85.43 Personal history of malignant neoplasm of ovary; Z90.710 Acquired absence of both cervix and uterus; Z92.3 Personal history of irradiation; Z79.899 Other long term (current) drug therapy
CPT/HCPCS: 36591; 80053; 85025; 86300; 96413

== ENCOUNTER 2018-02-25 08:50 | Outpatient (RCR) | payer BC ==
[2017-12-24 09:05] LABS: BASOPHILS # (AUTO) 0.1 10^3/uL (0.0-0.1); BASOPHILS % (AUTO) 1 % (0-10); EOSINOPHILS # (AUTO) 0.1 10^3/uL (0.0-0.3); EOSINOPHILS % (AUTO) 1 % (0-10); HEMATOCRIT 43 % (35-52); HEMOGLOBIN 14.9 G/DL (11.5-16.0); LYMPHOCYTES # (AUTO) 1.5 X 10^3 (1.0-4.0); LYMPHOCYTES % (AUTO) 24 % (12-44); MEAN CORPUSCULAR HEMOGLOBIN 29 PG (25-34); MEAN CORPUSCULAR HGB CONC 35 G/DL (32-36); MEAN CORPUSCULAR VOLUME 83 FL (80-99); MEAN PLATELET VOLUME 9.4 FL (7.4-10.4); MONOCYTES # (AUTO) 0.4 X 10^3 (0.0-1.0); MONOCYTES % (AUTO) 6 % (0-12); NEUTROPHILS # (AUTO) 4.1 X 10^3 (1.8-7.8); NEUTROPHILS % (AUTO) 68 % (42-75); PLATELET COUNT 196 10^3/uL (130-400); RED CELL DISTRIBUTION WIDTH 14.4 % (10.0-14.5)
[2017-12-24 09:26] LABS: ALBUMIN 4.3 GM/DL (3.2-4.5); CALCIUM 9.6 MG/DL (8.5-10.1); CREATININE SERUM 1.01 MG/DL (0.60-1.30); POTASSIUM 4.1 MMOL/L (3.6-5.0); TOTAL PROTEIN 6.8 GM/DL (6.4-8.2)
[2018-02-04 09:26] LABS: BASOPHILS % (AUTO) 1 % (0-10); EOSINOPHILS # (AUTO) 0.1 10^3/uL (0.0-0.3); EOSINOPHILS % (AUTO) 2 % (0-10); HEMATOCRIT 43 % (35-52); HEMOGLOBIN 14.9 G/DL (11.5-16.0); LYMPHOCYTES # (AUTO) 1.5 X 10^3 (1.0-4.0); LYMPHOCYTES % (AUTO) 24 % (12-44); MEAN CORPUSCULAR HEMOGLOBIN 29 PG (25-34); MEAN CORPUSCULAR HGB CONC 35 G/DL (32-36); MEAN CORPUSCULAR VOLUME 83 FL (80-99); MONOCYTES # (AUTO) 0.4 X 10^3 (0.0-1.0); MONOCYTES % (AUTO) 6 % (0-12); NEUTROPHILS # (AUTO) 4.5 X 10^3 (1.8-7.8); NEUTROPHILS % (AUTO) 68 % (42-75); PLATELET COUNT 207 10^3/uL (130-400); RED BLOOD COUNT 5.14 10^6/uL (4.35-5.85); RED CELL DISTRIBUTION WIDTH 14.5 % (10.0-14.5); WHITE BLOOD COUNT 6.6 10^3/uL (4.3-11.0)
[2018-02-04 09:52] LABS: ALBUMIN 4.3 GM/DL (3.2-4.5); BILIRUBIN,TOTAL 0.8 MG/DL (0.1-1.0); CALCIUM 9.6 MG/DL (8.5-10.1); CREATININE SERUM 1.08 MG/DL (0.60-1.30); POTASSIUM 4.1 MMOL/L (3.6-5.0); TOTAL PROTEIN 6.9 GM/DL (6.4-8.2)
[~2018-02-25] VITALS: Ht 172.7 cm; Wt 99.8 kg
== END 2018-03-04 08:43 | disposition home or self-care (01) ==
LOC: ONC 08:50
PROVIDERS: ATTEND Internal Medicine Hematology & Oncology
DX: Z51.11 Encounter for antineoplastic chemotherapy (principal); C50.412 Malignant neoplasm of upper-outer quadrant of left female breast; C79.51 Secondary malignant neoplasm of bone; Z85.43 Personal history of malignant neoplasm of ovary; Z90.710 Acquired absence of both cervix and uterus; Z92.3 Personal history of irradiation; Z79.899 Other long term (current) drug therapy
CPT/HCPCS: 36591; 80053; 85025; 96413

== ENCOUNTER → 2018-03-23 | Outpatient (CLI) | payer BC ==
[~2018-03-23] MED LIST changes: +BARIUM SUSPENSION 2.1% (VANILLA SILQ) 450 ML PO ONE; +IOHEXOL 350 MG/ML 100 ML (OMNIPAQUE 350) VIAL IV ONE; +NS 250 ML (IVPB) BAG IV ONE; -NS IV 500 ML (CANCER CENTER) IV SCH; -NS IV SCH; -TRASTUZUMAB IV SCH
--- NOTE | 2018-03-23 11:57 | Diagnostic Imaging Report ---
PROCEDURE: CT chest with contrast, CT abdomen and pelvis with and without contrast. TECHNIQUE: Pre and post intravenous contrast axial imaging of the abdomen and pelvis and post contrast axial imaging of the chest were performed. INDICATION: Breast cancer and ovarian cancer with bone metastases. Study is performed for followup. COMPARISON: Comparison is made with prior CT from 09/25/2017. FINDINGS: CT chest: Right chest wall port has tip within the SVC. Post therapeutic changes with skin thickening involving the left breast is again noted. There are surgical clips in the left axilla. No axillary lymphadenopathy is seen. No internal mammary lymphadenopathy is detected. The mediastinum and hernandez are stable. No pericardial or pleural fluid is identified. Tiny subpleural nodule in the lateral portion of the right middle lobe is stable. No other parenchymal abnormalities are seen. There are no infiltrates identified. Osteoblastic lesions involving the thoracic vertebrae and bilateral ribs appear stable. IMPRESSION: Overall stable CT of the chest when compared with the exam from 09/25/2017. No definite findings to suggest pulmonary metastatic disease or thoracic lymphadenopathy is identified. Osteoblastic metastases are stable. CT abdomen and pelvis: No discrete liver mass is seen. Previously noted large stone in the gallbladder is again noted. No biliary ductal dilatation is seen. The pancreas and spleen are unremarkable. No adrenal mass is seen. Kidneys are unremarkable. Aorta remains calcified but nonaneurysmal. Previously noted lymph node just lateral to the IVC at the level of the lower pole of the right kidney has decreased in size, now measuring 11 mm transverse compared with 15 mm on prior exam. Small node in the left iliac region, image 100 is slightly smaller at 10 mm compared with 12 mm. No inguinal lymphadenopathy is seen. Midline ventral hernia containing bowel loops is unchanged. No bowel obstruction is seen. There is no ascites. The bladder does demonstrate some mild wall thickening, similar to prior study. Bony structures again demonstrate some osteoblastic lesions of the lumbar spine, stable when compared with prior study. IMPRESSION: 1. Improved appearance of the abdomen and pelvis with mild decrease in size of central retroperitoneal and left iliac lymphadenopathy when compared with 09/25/2017. 2. Cholelithiasis. 3. Stable osteoblastic metastatic disease. Dictated by: Dictated on workstation # [id number]
--- NOTE | 2018-03-23 20:21 | Diagnostic Imaging Report ---
INDICATION: Breast and ovarian carcinoma. TECHNIQUE: The patient was administered 26.9 mCi technetium 99m MDP intravenously and whole-body imaging was performed after a three-hour delay. CORRELATION is made with a prior whole body bone scan from 09/25/2017. FINDINGS: Uptake of activity by the kidneys and excretion into the urinary bladder is noted. There is normal uptake of activity within the axial and appendicular skeleton. Previously noted vague uptake involving a lower left rib is stable. Tracer accumulation is seen. No findings to suggest osseous metastatic disease are identified. There are degenerative changes of the bilateral feet. IMPRESSION: Stable whole body bone scan. There are no findings to suggest osseous metastatic disease. Dictated by: Dictated on workstation # [id number]
== END ==
LOC: CARD 09:56
PROVIDERS: ATTEND Nurse Practitioner Adult Health
DX: C50.412 Malignant neoplasm of upper-outer quadrant of left female breast (principal); C56.2 Malignant neoplasm of left ovary; C79.51 Secondary malignant neoplasm of bone; I08.1 Rheumatic disorders of both mitral and tricuspid valves; Z79.899 Other long term (current) drug therapy
CPT/HCPCS: 71260; 74178; 78306; 93306

== ENCOUNTER 2018-05-27 08:49 | Outpatient (RCR) | payer BC ==
[2018-03-18 09:14] LABS: BASOPHILS # (AUTO) 0.1 10^3/uL (0.0-0.1); BASOPHILS % (AUTO) 1 % (0-10); EOSINOPHILS # (AUTO) 0.1 10^3/uL (0.0-0.3); EOSINOPHILS % (AUTO) 2 % (0-10); HEMATOCRIT 42 % (35-52); HEMOGLOBIN 14.9 G/DL (11.5-16.0); LYMPHOCYTES # (AUTO) 1.4 X 10^3 (1.0-4.0); LYMPHOCYTES % (AUTO) 26 % (12-44); MEAN CORPUSCULAR HEMOGLOBIN 30 PG (25-34); MEAN CORPUSCULAR HGB CONC 36 G/DL (32-36); MEAN CORPUSCULAR VOLUME 83 FL (80-99); MEAN PLATELET VOLUME 9.9 FL (7.4-10.4); MONOCYTES # (AUTO) 0.3 X 10^3 (0.0-1.0); MONOCYTES % (AUTO) 6 % (0-12); NEUTROPHILS # (AUTO) 3.6 X 10^3 (1.8-7.8); NEUTROPHILS % (AUTO) 65 % (42-75); PLATELET COUNT 189 10^3/uL (130-400); RED BLOOD COUNT 5.04 10^6/uL (4.35-5.85); RED CELL DISTRIBUTION WIDTH 14.4 % (10.0-14.5); WHITE BLOOD COUNT 5.4 10^3/uL (4.3-11.0)
[2018-03-18 09:39] LABS: ALBUMIN 4.3 GM/DL (3.2-4.5); BILIRUBIN,TOTAL 0.9 MG/DL (0.1-1.0); CALCIUM 9.6 MG/DL (8.5-10.1); CREATININE SERUM 1.05 MG/DL (0.60-1.30); POTASSIUM 3.9 MMOL/L (3.6-5.0)
[2018-05-20 09:02] LABS: BASOPHILS % (AUTO) 1 % (0-10); EOSINOPHILS # (AUTO) 0.1 10^3/uL (0.0-0.3); EOSINOPHILS % (AUTO) 2 % (0-10); HEMATOCRIT 44 % (35-52); HEMOGLOBIN 15.1 G/DL (11.5-16.0); LYMPHOCYTES # (AUTO) 1.5 X 10^3 (1.0-4.0); LYMPHOCYTES % (AUTO) 28 % (12-44); MEAN CORPUSCULAR HEMOGLOBIN 29 PG (25-34); MEAN CORPUSCULAR HGB CONC 35 G/DL (32-36); MEAN CORPUSCULAR VOLUME 83 FL (80-99); MEAN PLATELET VOLUME 9.9 FL (7.4-10.4); MONOCYTES # (AUTO) 0.3 X 10^3 (0.0-1.0); MONOCYTES % (AUTO) 6 % (0-12); NEUTROPHILS # (AUTO) 3.5 X 10^3 (1.8-7.8); NEUTROPHILS % (AUTO) 65 % (42-75); PLATELET COUNT 186 10^3/uL (130-400); RED BLOOD COUNT 5.29 10^6/uL (4.35-5.85); WHITE BLOOD COUNT 5.4 10^3/uL (4.3-11.0)
[2018-05-20 09:22] LABS: ALBUMIN 4.4 GM/DL (3.2-4.5); BILIRUBIN,TOTAL 0.9 MG/DL (0.1-1.0); CALCIUM 9.7 MG/DL (8.5-10.1); CREATININE SERUM 0.98 MG/DL (0.60-1.30); TOTAL PROTEIN 7.3 GM/DL (6.4-8.2)
[2018-05-20 09:26] LABS: POTASSIUM 3.7 MMOL/L (3.6-5.0)
[~2018-05-27] VITALS: Ht 172.7 cm; Wt 103.4 kg
[~2018-05-27 08:49] MED LIST changes: -BARIUM SUSPENSION 2.1% (VANILLA SILQ) 450 ML PO ONE; -IOHEXOL 350 MG/ML 100 ML (OMNIPAQUE 350) VIAL IV ONE; -NS 250 ML (IVPB) BAG IV ONE; +NS IV 500 ML (CANCER CENTER) IV SCH; +NS IV SCH; +TRASTUZUMAB IV SCH
== END 2018-06-02 | disposition home or self-care (01) ==
LOC: ONC 08:49
PROVIDERS: ATTEND Internal Medicine Hematology & Oncology
DX: Z51.11 Encounter for antineoplastic chemotherapy (principal); C50.412 Malignant neoplasm of upper-outer quadrant of left female breast; C79.51 Secondary malignant neoplasm of bone; Z85.43 Personal history of malignant neoplasm of ovary; Z90.710 Acquired absence of both cervix and uterus; Z92.3 Personal history of irradiation; Z79.899 Other long term (current) drug therapy
CPT/HCPCS: 36591; 80053; 85025; 86300; 96413

== ENCOUNTER 2018-08-26 08:32 | Outpatient (RCR) | payer BC ==
[2018-07-15 08:53] LABS: BASOPHILS # (AUTO) 0.1 10^3/uL (0.0-0.1); BASOPHILS % (AUTO) 1 % (0-10); EOSINOPHILS # (AUTO) 0.1 10^3/uL (0.0-0.3); EOSINOPHILS % (AUTO) 1 % (0-10); HEMATOCRIT 43 % (35-52); HEMOGLOBIN 14.9 G/DL (11.5-16.0); LYMPHOCYTES # (AUTO) 1.8 X 10^3 (1.0-4.0); LYMPHOCYTES % (AUTO) 25 % (12-44); MEAN CORPUSCULAR HEMOGLOBIN 28 PG (25-34); MEAN CORPUSCULAR HGB CONC 35 G/DL (32-36); MEAN CORPUSCULAR VOLUME 82 FL (80-99); MEAN PLATELET VOLUME 9.2 FL (7.4-10.4); MONOCYTES # (AUTO) 0.4 X 10^3 (0.0-1.0); MONOCYTES % (AUTO) 5 % (0-12); NEUTROPHILS # (AUTO) 4.8 X 10^3 (1.8-7.8); NEUTROPHILS % (AUTO) 67 % (42-75); PLATELET COUNT 224 10^3/uL (130-400); RED CELL DISTRIBUTION WIDTH 14.3 % (10.0-14.5); WHITE BLOOD COUNT 7.1 10^3/uL (4.3-11.0)
[2018-07-15 09:19] LABS: ALBUMIN 4.2 GM/DL (3.2-4.5); BILIRUBIN,TOTAL 0.7 MG/DL (0.1-1.0); CALCIUM 9.5 MG/DL (8.5-10.1); CREATININE SERUM 0.94 MG/DL (0.60-1.30); POTASSIUM 3.7 MMOL/L (3.6-5.0); TOTAL PROTEIN 7.2 GM/DL (6.4-8.2)
[~2018-08-26] VITALS: Ht 172.7 cm; Wt 100.7 kg
== END 2018-09-01 | disposition home or self-care (01) ==
LOC: ONC 08:32
PROVIDERS: ATTEND Internal Medicine Hematology & Oncology
DX: Z51.11 Encounter for antineoplastic chemotherapy (principal); C50.412 Malignant neoplasm of upper-outer quadrant of left female breast; C79.51 Secondary malignant neoplasm of bone; Z85.43 Personal history of malignant neoplasm of ovary; Z90.710 Acquired absence of both cervix and uterus; Z92.3 Personal history of irradiation; Z79.899 Other long term (current) drug therapy
CPT/HCPCS: 36591; 80053; 85025; 86300; 96413

== ENCOUNTER → 2018-09-10 | Outpatient (CLI) | payer BC ==
[~2018-09-10] MED LIST changes: +BARIUM SUSPENSION 2.1% (VANILLA SILQ) 450 ML PO ONE; +CATHETER FLUSH 10 ML SYR IV PRN; +HOLD METFORMIN - RECEIVED CONTRAST 20 ML VIAL IV SCH; +IOHEXOL 350 MG/ML 100 ML (OMNIPAQUE 350) VIAL IV ONE; -NS IV 500 ML (CANCER CENTER) IV SCH; -NS IV SCH; -TRASTUZUMAB IV SCH
--- NOTE | 2018-09-10 13:55 | Diagnostic Imaging Report ---
PROCEDURE: CT chest with contrast, CT abdomen and pelvis with and without contrast. TECHNIQUE: Pre and post intravenous contrast axial imaging of the abdomen and pelvis and post contrast axial imaging of the chest were performed. Auto Exposure Controls were utilized during the CT exam to meet ALARA standards for radiation dose reduction. INDICATION: Breast cancer. COMPARISON: Comparison made with prior examination from 03/23/2018. FINDINGS: There are no discrete pulmonary nodules, masses, or infiltrates. There is no pleural or pericardial fluid. There is no pneumothorax. Thyroid is normal. There is no pathologically enlarged adenopathy in the chest. There are degenerative changes in the spine. There appear to be old osteoblastic metastases. The liver is normal in size without focal lesions. There is a large stone in the gallbladder. There is no biliary ductal dilatation. Spleen is normal. The pancreas and adrenal glands are unremarkable. There is a cyst in the left kidney. There is some atherosclerotic calcification of the aorta which is nonaneurysmal. There is a small anterior abdominal wall hernia containing a loop of small bowel, which does not appear to be obstructed or strangulated. Bladder is normal. There is no ascites. There is no free air. There are no focal inflammatory changes. There is no pelvic mass, adenopathy, or free fluid. There is a 1.5 cm paracaval lymph node. This is slightly larger than on the prior examination. No definite pathologically enlarged iliac nodes are appreciated. IMPRESSION: Stable osteoblastic metastatic deposits. Cholelithiasis. 1.5 cm right paracaval node is slightly larger than the prior examination. Anterior abdominal wall hernia containing loops of small bowel, which do not appear to be obstructed or strangulated. Dictated by: Dictated on workstation # [id number]
--- NOTE | 2018-09-10 19:43 | Diagnostic Imaging Report ---
INDICATION: Ovarian and breast cancer. TECHNIQUE: Anterior and posterior whole body planar imaging was performed after the administration of 25.1 mCi of technetium-99m MDP. COMPARISON: Comparison made with prior examination from March 23, 2018. FINDINGS: There is focal increased activity in the lower left lateral rib. There is otherwise normal uptake of isotope throughout the remainder of the axial and appendicular skeleton. There is physiologic uptake within the kidneys bilaterally with excretion into the urinary bladder. There is no evidence of osteoblastic metastatic disease. IMPRESSION: No evidence of osteoblastic metastatic disease. Focal area of increased activity in the lower left lateral rib, likely post-traumatic. Dictated by: Dictated on workstation # [id number]
== END ==
LOC: CARD 12:06
PROVIDERS: ATTEND Internal Medicine Hematology & Oncology
DX: C50.412 Malignant neoplasm of upper-outer quadrant of left female breast (principal); C56.2 Malignant neoplasm of left ovary; C79.51 Secondary malignant neoplasm of bone; K43.9 Ventral hernia without obstruction or gangrene
CPT/HCPCS: 71260; 74178; 78306

== ENCOUNTER → 2018-09-24 | Outpatient (CLI) | payer BC ==
[~2018-09-24] MED LIST changes: -BARIUM SUSPENSION 2.1% (VANILLA SILQ) 450 ML PO ONE; -CATHETER FLUSH 10 ML SYR IV PRN; -HOLD METFORMIN - RECEIVED CONTRAST 20 ML VIAL IV SCH; -IOHEXOL 350 MG/ML 100 ML (OMNIPAQUE 350) VIAL IV ONE
== END ==
LOC: CARD 09:04
PROVIDERS: ATTEND Nurse Practitioner Adult Health
DX: Z51.81 Encounter for therapeutic drug level monitoring (principal); C50.412 Malignant neoplasm of upper-outer quadrant of left female breast; C56.2 Malignant neoplasm of left ovary; C79.51 Secondary malignant neoplasm of bone; Z79.899 Other long term (current) drug therapy
CPT/HCPCS: 93306

== ENCOUNTER 2018-11-25 08:37 | Outpatient (RCR) | payer BC ==
[2018-09-09 08:52] LABS: BASOPHILS % (AUTO) 1 % (0-10); EOSINOPHILS # (AUTO) 0.1 10^3/uL (0.0-0.3); EOSINOPHILS % (AUTO) 2 % (0-10); HEMATOCRIT 42 % (35-52); HEMOGLOBIN 14.4 G/DL (11.5-16.0); LYMPHOCYTES # (AUTO) 1.6 X 10^3 (1.0-4.0); LYMPHOCYTES % (AUTO) 24 % (12-44); MEAN CORPUSCULAR HEMOGLOBIN 28 PG (25-34); MEAN CORPUSCULAR HGB CONC 35 G/DL (32-36); MEAN CORPUSCULAR VOLUME 82 FL (80-99); MEAN PLATELET VOLUME 9.6 FL (7.4-10.4); MONOCYTES # (AUTO) 0.3 X 10^3 (0.0-1.0); MONOCYTES % (AUTO) 4 % (0-12); NEUTROPHILS # (AUTO) 4.7 X 10^3 (1.8-7.8); NEUTROPHILS % (AUTO) 69 % (42-75); PLATELET COUNT 195 10^3/uL (130-400); RED CELL DISTRIBUTION WIDTH 14.4 % (10.0-14.5); WHITE BLOOD COUNT 6.8 10^3/uL (4.3-11.0)
[2018-09-09 09:19] LABS: ALANINE AMINOTRANSFERASE 18 U/L (0-55); ALBUMIN 4.1 GM/DL (3.2-4.5); ALKALINE PHOSPHATASE 139 U/L (40-136); BILIRUBIN,TOTAL 0.7 MG/DL (0.1-1.0); BUN/CREATININE RATIO 16; CALCIUM 9.7 MG/DL (8.5-10.1); CARBON DIOXIDE 27 MMOL/L (21-32); CHLORIDE 105 MMOL/L (98-107); CREATININE SERUM 0.85 MG/DL (0.60-1.30); GFR ESTIMATED > 60; GLUCOSE 153 MG/DL (70-105); POTASSIUM 3.8 MMOL/L (3.6-5.0); SODIUM 139 MMOL/L (135-145); TOTAL PROTEIN 6.8 GM/DL (6.4-8.2)
[2018-11-04 08:59] LABS: BASOPHILS % (AUTO) 1 % (0-10); EOSINOPHILS # (AUTO) 0.1 10^3/uL (0.0-0.3); EOSINOPHILS % (AUTO) 2 % (0-10); HEMATOCRIT 40 % (35-52); LYMPHOCYTES # (AUTO) 1.3 X 10^3 (1.0-4.0); LYMPHOCYTES % (AUTO) 28 % (12-44); MEAN CORPUSCULAR HEMOGLOBIN 28 PG (25-34); MEAN CORPUSCULAR HGB CONC 35 G/DL (32-36); MEAN CORPUSCULAR VOLUME 81 FL (80-99); MEAN PLATELET VOLUME 9.7 FL (7.4-10.4); MONOCYTES # (AUTO) 0.3 X 10^3 (0.0-1.0); MONOCYTES % (AUTO) 6 % (0-12); NEUTROPHILS # (AUTO) 2.8 X 10^3 (1.8-7.8); NEUTROPHILS % (AUTO) 63 % (42-75); PLATELET COUNT 199 10^3/uL (130-400); RED CELL DISTRIBUTION WIDTH 14.4 % (10.0-14.5); WHITE BLOOD COUNT 4.4 10^3/uL (4.3-11.0)
[2018-11-04 09:20] LABS: ALBUMIN 4.2 GM/DL (3.2-4.5); BILIRUBIN,TOTAL 1.2 MG/DL (0.1-1.0); CALCIUM 9.7 MG/DL (8.5-10.1); CREATININE SERUM 0.98 MG/DL (0.60-1.30); POTASSIUM 3.8 MMOL/L (3.6-5.0); TOTAL PROTEIN 6.6 GM/DL (6.4-8.2)
[~2018-11-25] VITALS: Ht 172.7 cm; Wt 103.4 kg
[~2018-11-25 08:37] MED LIST changes: +NS IV 500 ML (CANCER CENTER) IV SCH; +NS IV SCH; +TRASTUZUMAB IV SCH
== END 2018-12-01 | disposition home or self-care (01) ==
LOC: ONC 08:37
PROVIDERS: ATTEND Internal Medicine Hematology & Oncology
DX: Z51.11 Encounter for antineoplastic chemotherapy (principal); C50.412 Malignant neoplasm of upper-outer quadrant of left female breast; C79.51 Secondary malignant neoplasm of bone; Z85.43 Personal history of malignant neoplasm of ovary; Z90.710 Acquired absence of both cervix and uterus; Z92.3 Personal history of irradiation; Z79.899 Other long term (current) drug therapy
CPT/HCPCS: 36591; 80053; 85025; 86300; 96413

== ENCOUNTER 2019-02-23 08:08 | Outpatient (RCR) | payer BC ==
[2019-01-06 09:29] LABS: BASOPHILS % (AUTO) 1 % (0-10); EOSINOPHILS # (AUTO) 0.1 10^3/uL (0.0-0.3); EOSINOPHILS % (AUTO) 1 % (0-10); HEMATOCRIT 41 % (35-52); HEMOGLOBIN 14.1 G/DL (11.5-16.0); LYMPHOCYTES # (AUTO) 1.6 X 10^3 (1.0-4.0); LYMPHOCYTES % (AUTO) 29 % (12-44); MEAN CORPUSCULAR HEMOGLOBIN 28 PG (25-34); MEAN CORPUSCULAR HGB CONC 34 G/DL (32-36); MEAN CORPUSCULAR VOLUME 82 FL (80-99); MEAN PLATELET VOLUME 9.5 FL (7.4-10.4); MONOCYTES # (AUTO) 0.3 X 10^3 (0.0-1.0); MONOCYTES % (AUTO) 5 % (0-12); NEUTROPHILS # (AUTO) 3.4 X 10^3 (1.8-7.8); NEUTROPHILS % (AUTO) 64 % (42-75); PLATELET COUNT 205 10^3/uL (130-400); RED CELL DISTRIBUTION WIDTH 14.7 % (10.0-14.5); WHITE BLOOD COUNT 5.4 10^3/uL (4.3-11.0)
[2019-01-06 09:55] LABS: ALANINE AMINOTRANSFERASE 12 U/L (0-55); ALBUMIN 4.4 GM/DL (3.2-4.5); ALKALINE PHOSPHATASE 141 U/L (40-136); BILIRUBIN,TOTAL 1.5 MG/DL (0.1-1.0); BUN/CREATININE RATIO 10; CALCIUM 9.9 MG/DL (8.5-10.1); CARBON DIOXIDE 28 MMOL/L (21-32); CHLORIDE 101 MMOL/L (98-107); GFR ESTIMATED > 60; GLUCOSE 142 MG/DL (70-105); POTASSIUM 3.7 MMOL/L (3.6-5.0); SODIUM 139 MMOL/L (135-145)
[2019-02-10 08:50] LABS: BASOPHILS # (AUTO) 0.1 10^3/uL (0.0-0.1); BASOPHILS % (AUTO) 1 % (0-10); EOSINOPHILS # (AUTO) 0.1 10^3/uL (0.0-0.3); EOSINOPHILS % (AUTO) 2 % (0-10); HEMATOCRIT 40 % (35-52); HEMOGLOBIN 13.9 G/DL (11.5-16.0); LYMPHOCYTES # (AUTO) 1.6 X 10^3 (1.0-4.0); LYMPHOCYTES % (AUTO) 30 % (12-44); MEAN CORPUSCULAR HEMOGLOBIN 29 PG (25-34); MEAN CORPUSCULAR HGB CONC 35 G/DL (32-36); MEAN CORPUSCULAR VOLUME 84 FL (80-99); MEAN PLATELET VOLUME 9.6 FL (7.4-10.4); MONOCYTES # (AUTO) 0.3 X 10^3 (0.0-1.0); MONOCYTES % (AUTO) 6 % (0-12); NEUTROPHILS # (AUTO) 3.3 X 10^3 (1.8-7.8); NEUTROPHILS % (AUTO) 62 % (42-75); PLATELET COUNT 191 10^3/uL (130-400); RED CELL DISTRIBUTION WIDTH 14.4 % (10.0-14.5); WHITE BLOOD COUNT 5.4 10^3/uL (4.3-11.0)
[2019-02-10 09:11] LABS: ALBUMIN 4.2 GM/DL (3.2-4.5); BILIRUBIN,TOTAL 0.9 MG/DL (0.1-1.0); CALCIUM 9.6 MG/DL (8.5-10.1); CREATININE SERUM 0.98 MG/DL (0.60-1.30); POTASSIUM 3.8 MMOL/L (3.6-5.0); TOTAL PROTEIN 6.9 GM/DL (6.4-8.2)
== END 2019-03-02 | disposition home or self-care (01) ==
LOC: ONC 08:08
PROVIDERS: ATTEND Internal Medicine Hematology & Oncology
DX: Z51.11 Encounter for antineoplastic chemotherapy (principal); C50.412 Malignant neoplasm of upper-outer quadrant of left female breast; C79.51 Secondary malignant neoplasm of bone; Z85.43 Personal history of malignant neoplasm of ovary; Z90.710 Acquired absence of both cervix and uterus; Z92.3 Personal history of irradiation; Z79.899 Other long term (current) drug therapy
CPT/HCPCS: 36591; 80053; 85025; 86300; 96413

== ENCOUNTER → 2019-03-15 | Outpatient (CLI) | payer BC ==
[~2019-03-15] MED LIST changes: +BARIUM SUSPENSION 2.1% (VANILLA SILQ) 450 ML PO ONE; +HOLD METFORMIN - RECEIVED CONTRAST 20 ML VIAL IV SCH; +IOHEXOL 350 MG/ML 100 ML (OMNIPAQUE 350) VIAL IV ONE; +NS 100 ML (IVPB) BAG IV ONE; -NS IV 500 ML (CANCER CENTER) IV SCH; -NS IV SCH; -TRASTUZUMAB IV SCH
[2019-03-15] MEDS: CATHETER FLUSH 10 ML SYR IV PRN ×2 (11:05→11:55)
--- NOTE | 2019-03-15 13:05 | Diagnostic Imaging Report ---
PROCEDURE: CT chest with contrast; CT abdomen and pelvis with and without contrast. TECHNIQUE: Pre and post intravenous contrast axial imaging of the abdomen and pelvis and post contrast axial imaging of the chest were performed. Auto Exposure Controls were utilized during the CT exam to meet ALARA standards for radiation dose reduction. INDICATION: Follow-up breast carcinoma. COMPARISON: Correlation is made with prior CT from 09/10/2018. CT CHEST: A right chest wall port has the tip slightly deflected towards the left and anterior, entering via left brachiocephalic vein. This is new since prior CT. No definite chest wall mass is identified. No internal mammary lymphadenopathy is detected. No axillary lymphadenopathy is seen. There are surgical clips in the left axilla. No mediastinal or hilar lymphadenopathy is seen. There is no pericardial or pleural fluid. Lungs demonstrate some scarring in the right middle lobe and lingula as well as the right lower lobe. No infiltrate, nodule, or mass is seen. CT ABDOMEN AND PELVIS: No discrete liver mass is identified. There is a large stone within the gallbladder. No biliary ductal dilatation is seen. The pancreas and spleen are unremarkable. No adrenal mass is detected. Kidneys are without evidence of calculi or hydronephrosis. Aorta is heavily calcified but non-aneurysmal. Previously noted right paracaval lymph node at the level of the lower pole right kidney is stable at 15 mm. No new lymphadenopathy is seen. Small and large bowel loops are normal in caliber. Midline ventral hernia containing bowel loops is again noted. There is no bowel obstruction. No free fluid or fluid collection is seen. There are surgical clips in the left lower quadrant. No pelvic lymphadenopathy is seen. The bladder is unremarkable. The uterus appears to be surgically absent. Osteosclerotic lesions in the thoracic spine are stable. IMPRESSION: 1. No evidence of thoracic lymphadenopathy or pulmonary metastatic disease. 2. Stable right paracaval lymph node. No new abdominal or pelvic lymphadenopathy is identified. 3. Midline ventral hernia. Dictated by: Dictated on workstation # [id number]
--- NOTE | 2019-03-15 14:40 | Diagnostic Imaging Report ---
INDICATION: Breast carcinoma. TECHNIQUE: Patient was administered 26.9 mCi technetium-99m MDP intravenously and whole-body imaging was performed after three-hour delay. COMPARISON: Correlation is made with prior bone scan from 09/10/2018. FINDINGS: There is uptake of activity by the axial and appendicular skeleton. There is uptake by the kidneys with excretion into the urinary bladder. Area of focal uptake involving lower left anterior rib is unchanged. No new rib abnormalities are seen. There are two foci of uptake identified in the thoracic spine. More cephalad area is near the midline at approximately T6 level. Second area is just to the right of midline of approximately T12 vertebral body. These were not definitely seen on prior exam. No other abnormal foci are identified. IMPRESSION: Development of two foci of uptake involving mid and lower thoracic spine since prior bone scan from 09/10/2018. There are mixed lytic and sclerotic lesions at these locations on CT and findings are suggestive of metastatic disease. No other abnormality is detected. Dictated by: Dictated on workstation # [id number]
== END ==
LOC: CARD 10:56
PROVIDERS: ATTEND Internal Medicine Hematology & Oncology
DX: K43.9 Ventral hernia without obstruction or gangrene (principal); C50.919 Malignant neoplasm of unspecified site of unspecified female breast; C56.9 Malignant neoplasm of unspecified ovary; C79.51 Secondary malignant neoplasm of bone
CPT/HCPCS: 71260; 74178; 78306

== ENCOUNTER 2019-05-27 08:51 | Outpatient (RCR) | payer BC ==
[2019-03-17 09:36] LABS: BASOPHILS % (AUTO) 1 % (0-10); EOSINOPHILS # (AUTO) 0.1 10^3/uL (0.0-0.3); EOSINOPHILS % (AUTO) 1 % (0-10); HEMATOCRIT 43 % (35-52); HEMOGLOBIN 14.4 G/DL (11.5-16.0); LYMPHOCYTES # (AUTO) 1.6 X 10^3 (1.0-4.0); LYMPHOCYTES % (AUTO) 25 % (12-44); MEAN CORPUSCULAR HEMOGLOBIN 28 PG (25-34); MEAN CORPUSCULAR HGB CONC 34 G/DL (32-36); MEAN CORPUSCULAR VOLUME 84 FL (80-99); MEAN PLATELET VOLUME 9.6 FL (7.4-10.4); MONOCYTES # (AUTO) 0.3 X 10^3 (0.0-1.0); MONOCYTES % (AUTO) 5 % (0-12); NEUTROPHILS # (AUTO) 4.5 X 10^3 (1.8-7.8); NEUTROPHILS % (AUTO) 69 % (42-75); PLATELET COUNT 244 10^3/uL (130-400); RED CELL DISTRIBUTION WIDTH 14.4 % (10.0-14.5); WHITE BLOOD COUNT 6.5 10^3/uL (4.3-11.0)
[2019-03-17 10:13] LABS: ALANINE AMINOTRANSFERASE 21 U/L (0-55); ALBUMIN 4.3 GM/DL (3.2-4.5); ALKALINE PHOSPHATASE 135 U/L (40-136); BILIRUBIN,TOTAL 1.3 MG/DL (0.1-1.0); BUN/CREATININE RATIO 11; CALCIUM 9.9 MG/DL (8.5-10.1); CARBON DIOXIDE 28 MMOL/L (21-32); CHLORIDE 102 MMOL/L (98-107); GFR ESTIMATED > 60; GLUCOSE 124 MG/DL (70-105); POTASSIUM 3.8 MMOL/L (3.6-5.0); SODIUM 141 MMOL/L (135-145); TOTAL PROTEIN 7.2 GM/DL (6.4-8.2)
[2019-04-02 09:07] LABS: BASOPHILS % (AUTO) 1 % (0-10); EOSINOPHILS # (AUTO) 0.1 10^3/uL (0.0-0.3); EOSINOPHILS % (AUTO) 2 % (0-10); HEMATOCRIT 42 % (35-52); HEMOGLOBIN 14.5 G/DL (11.5-16.0); LYMPHOCYTES # (AUTO) 1.4 X 10^3 (1.0-4.0); LYMPHOCYTES % (AUTO) 29 % (12-44); MEAN CORPUSCULAR HEMOGLOBIN 29 PG (25-34); MEAN CORPUSCULAR HGB CONC 34 G/DL (32-36); MEAN CORPUSCULAR VOLUME 84 FL (80-99); MEAN PLATELET VOLUME 9.9 FL (7.4-10.4); MONOCYTES # (AUTO) 0.3 X 10^3 (0.0-1.0); MONOCYTES % (AUTO) 6 % (0-12); NEUTROPHILS % (AUTO) 62 % (42-75); PLATELET COUNT 123 10^3/uL (130-400); RED CELL DISTRIBUTION WIDTH 14.5 % (10.0-14.5); WHITE BLOOD COUNT 4.9 10^3/uL (4.3-11.0)
[2019-04-02 09:23] LABS: BUN/CREATININE RATIO 10; CALCIUM 9.6 MG/DL (8.5-10.1); CARBON DIOXIDE 30 MMOL/L (21-32); CHLORIDE 103 MMOL/L (98-107); CREATININE SERUM 0.93 MG/DL (0.60-1.30); GFR ESTIMATED > 60; GLUCOSE 192 MG/DL (70-105); POTASSIUM 3.4 MMOL/L (3.6-5.0); SODIUM 141 MMOL/L (135-145)
[2019-04-14 09:09] LABS: BASOPHILS % (AUTO) 1 % (0-10); EOSINOPHILS % (AUTO) 1 % (0-10); HEMATOCRIT 42 % (35-52); HEMOGLOBIN 14.3 G/DL (11.5-16.0); LYMPHOCYTES # (AUTO) 0.9 X 10^3 (1.0-4.0); LYMPHOCYTES % (AUTO) 27 % (12-44); MEAN CORPUSCULAR HEMOGLOBIN 28 PG (25-34); MEAN CORPUSCULAR HGB CONC 34 G/DL (32-36); MEAN CORPUSCULAR VOLUME 82 FL (80-99); MEAN PLATELET VOLUME 9.4 FL (7.4-10.4); MONOCYTES # (AUTO) 0.3 X 10^3 (0.0-1.0); MONOCYTES % (AUTO) 7 % (0-12); NEUTROPHILS # (AUTO) 2.2 X 10^3 (1.8-7.8); NEUTROPHILS % (AUTO) 64 % (42-75); PLATELET COUNT 148 10^3/uL (130-400); RED CELL DISTRIBUTION WIDTH 14.2 % (10.0-14.5); WHITE BLOOD COUNT 3.5 10^3/uL (4.3-11.0)
[2019-04-14 09:27] LABS: ALANINE AMINOTRANSFERASE 28 U/L (0-55); ALBUMIN 4.2 GM/DL (3.2-4.5); ALKALINE PHOSPHATASE 140 U/L (40-136); BILIRUBIN,TOTAL 1.5 MG/DL (0.1-1.0); BUN/CREATININE RATIO 22; CALCIUM 9.4 MG/DL (8.5-10.1); CARBON DIOXIDE 27 MMOL/L (21-32); CHLORIDE 99 MMOL/L (98-107); CREATININE SERUM 0.82 MG/DL (0.60-1.30); GFR ESTIMATED > 60; GLUCOSE 152 MG/DL (70-105); POTASSIUM 3.5 MMOL/L (3.6-5.0); SODIUM 137 MMOL/L (135-145)
[2019-04-23 09:05] LABS: BASOPHILS % (AUTO) 1 % (0-10); EOSINOPHILS # (AUTO) 0.1 10^3/uL (0.0-0.3); EOSINOPHILS % (AUTO) 1 % (0-10); HEMATOCRIT 43 % (35-52); HEMOGLOBIN 14.7 G/DL (11.5-16.0); LYMPHOCYTES # (AUTO) 2.1 X 10^3 (1.0-4.0); LYMPHOCYTES % (AUTO) 29 % (12-44); MEAN CORPUSCULAR HEMOGLOBIN 28 PG (25-34); MEAN CORPUSCULAR HGB CONC 35 G/DL (32-36); MEAN CORPUSCULAR VOLUME 81 FL (80-99); MEAN PLATELET VOLUME 9.8 FL (7.4-10.4); MONOCYTES # (AUTO) 0.6 X 10^3 (0.0-1.0); MONOCYTES % (AUTO) 8 % (0-12); NEUTROPHILS # (AUTO) 4.5 X 10^3 (1.8-7.8); NEUTROPHILS % (AUTO) 62 % (42-75); PLATELET COUNT 201 10^3/uL (130-400); RED CELL DISTRIBUTION WIDTH 14.4 % (10.0-14.5); WHITE BLOOD COUNT 7.2 10^3/uL (4.3-11.0)
[2019-05-05 09:18] LABS: BASOPHILS % (AUTO) 1 % (0-10); EOSINOPHILS # (AUTO) 0.1 10^3/uL (0.0-0.3); EOSINOPHILS % (AUTO) 3 % (0-10); HEMATOCRIT 43 % (35-52); HEMOGLOBIN 14.9 G/DL (11.5-16.0); LYMPHOCYTES # (AUTO) 1.8 X 10^3 (1.0-4.0); LYMPHOCYTES % (AUTO) 33 % (12-44); MEAN CORPUSCULAR HEMOGLOBIN 29 PG (25-34); MEAN CORPUSCULAR HGB CONC 35 G/DL (32-36); MEAN CORPUSCULAR VOLUME 83 FL (80-99); MEAN PLATELET VOLUME 9.6 FL (7.4-10.4); MONOCYTES # (AUTO) 0.3 X 10^3 (0.0-1.0); MONOCYTES % (AUTO) 5 % (0-12); NEUTROPHILS # (AUTO) 3.1 X 10^3 (1.8-7.8); NEUTROPHILS % (AUTO) 59 % (42-75); PLATELET COUNT 206 10^3/uL (130-400); RED CELL DISTRIBUTION WIDTH 14.3 % (10.0-14.5); WHITE BLOOD COUNT 5.3 10^3/uL (4.3-11.0)
[2019-05-05 09:38] LABS: ALANINE AMINOTRANSFERASE 16 U/L (0-55); ALBUMIN 4.2 GM/DL (3.2-4.5); ALKALINE PHOSPHATASE 136 U/L (40-136); BILIRUBIN,TOTAL 0.8 MG/DL (0.1-1.0); BUN/CREATININE RATIO 13; CALCIUM 9.7 MG/DL (8.5-10.1); CARBON DIOXIDE 26 MMOL/L (21-32); CHLORIDE 104 MMOL/L (98-107); CREATININE SERUM 0.79 MG/DL (0.60-1.30); GFR ESTIMATED > 60; GLUCOSE 115 MG/DL (70-105); POTASSIUM 3.6 MMOL/L (3.6-5.0); SODIUM 142 MMOL/L (135-145); TOTAL PROTEIN 7.3 GM/DL (6.4-8.2)
[~2019-05-27] VITALS: Ht 172.7 cm; Wt 96.6 kg
[~2019-05-27 08:51] MED LIST changes: +ADO TRASTUZUMAB EMTANSINE IV SCH; -BARIUM SUSPENSION 2.1% (VANILLA SILQ) 450 ML PO ONE; +DEXAMETHASONE IV SCH; -HOLD METFORMIN - RECEIVED CONTRAST 20 ML VIAL IV SCH; -IOHEXOL 350 MG/ML 100 ML (OMNIPAQUE 350) VIAL IV ONE; -NS 100 ML (IVPB) BAG IV ONE; +NS IV 1000 ML (CANCER CTR) IV SCH; +NS IV 500 ML (CANCER CENTER) IV SCH; +NS IV SCH; +ONDANSETRON IV SCH; +TRASTUZUMAB IV SCH; +[UNRECOGNIZED DRUG - OTHER] IV SCH
[2019-05-27 09:21] LABS: BASOPHILS # (AUTO) 0.1 10^3/uL (0.0-0.1); BASOPHILS % (AUTO) 1 % (0-10); EOSINOPHILS # (AUTO) 0.1 10^3/uL (0.0-0.3); EOSINOPHILS % (AUTO) 1 % (0-10); HEMATOCRIT 41 % (35-52); HEMOGLOBIN 14.1 G/DL (11.5-16.0); LYMPHOCYTES # (AUTO) 1.8 X 10^3 (1.0-4.0); LYMPHOCYTES % (AUTO) 29 % (12-44); MEAN CORPUSCULAR HEMOGLOBIN 28 PG (25-34); MEAN CORPUSCULAR HGB CONC 34 G/DL (32-36); MEAN CORPUSCULAR VOLUME 83 FL (80-99); MEAN PLATELET VOLUME 9.4 FL (7.4-10.4); MONOCYTES # (AUTO) 0.3 X 10^3 (0.0-1.0); MONOCYTES % (AUTO) 5 % (0-12); NEUTROPHILS % (AUTO) 64 % (42-75); PLATELET COUNT 239 10^3/uL (130-400); RED CELL DISTRIBUTION WIDTH 14.1 % (10.0-14.5); WHITE BLOOD COUNT 6.3 10^3/uL (4.3-11.0)
[2019-05-27 09:44] LABS: ALANINE AMINOTRANSFERASE 18 U/L (0-55); ALBUMIN 4.1 GM/DL (3.2-4.5); ALKALINE PHOSPHATASE 116 U/L (40-136); BILIRUBIN,TOTAL 0.6 MG/DL (0.1-1.0); BUN/CREATININE RATIO 11; CALCIUM 9.5 MG/DL (8.5-10.1); CARBON DIOXIDE 25 MMOL/L (21-32); CHLORIDE 102 MMOL/L (98-107); CREATININE SERUM 0.87 MG/DL (0.60-1.30); GFR ESTIMATED > 60; GLUCOSE 166 MG/DL (70-105); POTASSIUM 3.5 MMOL/L (3.6-5.0); SODIUM 141 MMOL/L (135-145); TOTAL PROTEIN 7.1 GM/DL (6.4-8.2)
== END 2019-06-15 | disposition home or self-care (01) ==
LOC: ONC 08:51
PROVIDERS: ATTEND Internal Medicine Hematology & Oncology
DX: Z51.11 Encounter for antineoplastic chemotherapy (principal); C50.412 Malignant neoplasm of upper-outer quadrant of left female breast; C79.51 Secondary malignant neoplasm of bone; Z85.43 Personal history of malignant neoplasm of ovary; Z90.710 Acquired absence of both cervix and uterus; Z92.3 Personal history of irradiation; Z79.899 Other long term (current) drug therapy
CPT/HCPCS: 36415; 36591; 80048; 80053; 85025; 86300; 96375; 96413

== ENCOUNTER → 2019-08-19 | Outpatient (CLI) | payer MEDICARE, BC ==
[~2019-08-19] MED LIST changes: -ADO TRASTUZUMAB EMTANSINE IV SCH; -DEXAMETHASONE IV SCH; -NS IV 1000 ML (CANCER CTR) IV SCH; -NS IV 500 ML (CANCER CENTER) IV SCH; -NS IV SCH; -ONDANSETRON IV SCH; -TRASTUZUMAB IV SCH; -[UNRECOGNIZED DRUG - OTHER] IV SCH
== END ==
LOC: CARD 08:39
PROVIDERS: ATTEND Nurse Practitioner Adult Health
DX: Z51.81 Encounter for therapeutic drug level monitoring (principal); I10 Essential (primary) hypertension; C50.412 Malignant neoplasm of upper-outer quadrant of left female breast; D50-D89 Diseases of the blood and blood-forming organs and certain disorders involving the immune mechanism; C79.51 Secondary malignant neoplasm of bone; Z72.0 Tobacco use
CPT/HCPCS: 93306

== ENCOUNTER → 2019-09-06 | Outpatient (CLI) | payer BC, MEDICARE ==
[~2019-09-06] MED LIST changes: +BARIUM SUSPENSION 2.1% (VANILLA SILQ) 450 ML PO ONE; +HOLD METFORMIN - RECEIVED CONTRAST 20 ML VIAL IV SCH; +IOHEXOL 350 MG/ML 100 ML (OMNIPAQUE 350) VIAL IV ONE; +NS 100 ML (IVPB) BAG IV ONE
--- NOTE | 2019-09-06 09:23 | Diagnostic Imaging Report ---
EXAMINATION: CT Chest with intravenous contrast, CT Abdomen and Pelvis without and with intravenous contrast. TECHNIQUE: Pre and post intravenous contrast axial imaging of the abdomen and pelvis and post contrast axial imaging of the chest were performed. All CT scans use one or more of the following dose optimizing techniques: automated exposure control, MA and/or KvP adjustment based on a patient size and exam type, or iterative reconstruction. HISTORY: Breast cancer COMPARISON: 03/15/2019 FINDINGS: There is no edema or pneumonia. No pleural effusion. No pneumothorax. No suspicious nodules. Stable areas of scarring are seen in the right middle lobe and superior segment of the right lower lobe. Right port catheter tip terminates in the superior vena cava. Heart size is normal. There are mild coronary artery calcifications. No pericardial effusion. Aorta is normal in caliber. There has been a left axillary lymph node dissection. There is no mediastinal lymphadenopathy. The liver is normal without focal lesion. There is no biliary ductal dilation. A large gallstone is present in the gallbladder. Pancreas is normal. Spleen is normal. Adrenal glands are normal. Small duodenal lipoma is stable. There is a stable 18 x 17 mm x 4.4 cm tubular structure in the right retroperitoneum in the expected location of the gonadal vein which may represent thrombus within a gonadal vein remnant status post oophorectomy. Surgical clips are seen distal to this structure. There are scattered surgical clips throughout the abdomen. There is a bowel containing ventral abdominal hernia. The kidneys are normal. There is no hydronephrosis. Urinary bladder is normal. Visualized bowel is normal in caliber without obstruction or inflammation. No free fluid or air. No abdominal or pelvic lymphadenopathy. Aorta is normal in caliber without aneurysm. There are stable sclerotic lesions in the thoracic spine involving T12 and T5. Sclerosis of left-sided ribs associated with subacute to chronic fractures may represent pathologic fractures are healed. IMPRESSION: 1. Stable osseous lesions, no new metastatic disease seen. Dictated by: Dictated on workstation # [id number]
--- NOTE | 2019-09-06 11:42 | Diagnostic Imaging Report ---
INDICATION: Breast carcinoma. Patient was administered 26.3 mCi technetium 99m MDP intravenously and whole-body imaging was performed after 3 hour delay. Correlation is made with prior whole body bone scan from 03/15/2019 as well as recent CT chest from 09/06/2019 and 03/15/2019. There is uptake of activity by the axial and appendicular skeleton. This uptake by the kidneys with excretion to urinary bladder. Uptake involving a left sided anterolateral 7th and 8th ribs is again noted. Degree of uptake appears to be slightly increased at this site compared with prior. There is also uptake at approximately T5 and T12 levels, similar to prior. No new foci of trace attenuation is seen. There are some degenerative changes in the feet bilaterally. IMPRESSION: Thoracic spine and left rib uptake. This is similar in thoracic spine. A left 7th and 8th rib uptake is similar to perhaps slightly increased when compared with prior exam from March 2019. No new foci are detected. Dictated by: Dictated on workstation # [id number]
== END ==
LOC: CARD 08:25
PROVIDERS: ATTEND Nurse Practitioner Adult Health
DX: C50.412 Malignant neoplasm of upper-outer quadrant of left female breast (principal); C56.2 Malignant neoplasm of left ovary; C79.51 Secondary malignant neoplasm of bone
CPT/HCPCS: 71260; 74178; 78306

== ENCOUNTER 2019-09-08 08:48 | Outpatient (RCR) | payer BC ==
[2019-06-16 10:10] LABS: BASOPHILS # (AUTO) 0.1 10^3/uL (0.0-0.1); BASOPHILS % (AUTO) 1 % (0-10); EOSINOPHILS # (AUTO) 0.1 10^3/uL (0.0-0.3); EOSINOPHILS % (AUTO) 1 % (0-10); HEMATOCRIT 42 % (35-52); HEMOGLOBIN 14.2 G/DL (11.5-16.0); LYMPHOCYTES # (AUTO) 1.8 X 10^3 (1.0-4.0); LYMPHOCYTES % (AUTO) 36 % (12-44); MEAN CORPUSCULAR HEMOGLOBIN 28 PG (25-34); MEAN CORPUSCULAR HGB CONC 34 G/DL (32-36); MEAN CORPUSCULAR VOLUME 83 FL (80-99); MEAN PLATELET VOLUME 9.5 FL (7.4-10.4); MONOCYTES # (AUTO) 0.3 X 10^3 (0.0-1.0); MONOCYTES % (AUTO) 6 % (0-12); NEUTROPHILS # (AUTO) 2.7 X 10^3 (1.8-7.8); NEUTROPHILS % (AUTO) 56 % (42-75); PLATELET COUNT 201 10^3/uL (130-400); RED CELL DISTRIBUTION WIDTH 14.6 % (10.0-14.5); WHITE BLOOD COUNT 4.9 10^3/uL (4.3-11.0)
[2019-06-16 10:31] LABS: ALANINE AMINOTRANSFERASE 18 U/L (0-55); ALBUMIN 4.1 GM/DL (3.2-4.5); ALKALINE PHOSPHATASE 117 U/L (40-136); BILIRUBIN,TOTAL 0.8 MG/DL (0.1-1.0); BUN/CREATININE RATIO 10; CALCIUM 9.4 MG/DL (8.5-10.1); CARBON DIOXIDE 28 MMOL/L (21-32); CHLORIDE 104 MMOL/L (98-107); GFR ESTIMATED > 60; GLUCOSE 133 MG/DL (70-105); POTASSIUM 3.4 MMOL/L (3.6-5.0); SODIUM 141 MMOL/L (135-145)
[2019-07-07 09:14] LABS: BASOPHILS % (AUTO) 1 % (0-10); EOSINOPHILS # (AUTO) 0.1 10^3/uL (0.0-0.3); EOSINOPHILS % (AUTO) 2 % (0-10); HEMATOCRIT 44 % (35-52); HEMOGLOBIN 14.9 G/DL (11.5-16.0); LYMPHOCYTES # (AUTO) 1.6 X 10^3 (1.0-4.0); LYMPHOCYTES % (AUTO) 29 % (12-44); MEAN CORPUSCULAR HEMOGLOBIN 28 PG (25-34); MEAN CORPUSCULAR HGB CONC 34 G/DL (32-36); MEAN CORPUSCULAR VOLUME 83 FL (80-99); MEAN PLATELET VOLUME 9.6 FL (7.4-10.4); MONOCYTES # (AUTO) 0.3 X 10^3 (0.0-1.0); MONOCYTES % (AUTO) 5 % (0-12); NEUTROPHILS # (AUTO) 3.6 X 10^3 (1.8-7.8); NEUTROPHILS % (AUTO) 64 % (42-75); PLATELET COUNT 203 10^3/uL (130-400); RED CELL DISTRIBUTION WIDTH 14.8 % (10.0-14.5); WHITE BLOOD COUNT 5.6 10^3/uL (4.3-11.0)
[2019-07-07 09:33] LABS: ALANINE AMINOTRANSFERASE 20 U/L (0-55); ALBUMIN 4.2 GM/DL (3.2-4.5); ALKALINE PHOSPHATASE 121 U/L (40-136); BILIRUBIN,TOTAL 0.6 MG/DL (0.1-1.0); BUN/CREATININE RATIO 11; CALCIUM 9.8 MG/DL (8.5-10.1); CARBON DIOXIDE 28 MMOL/L (21-32); CHLORIDE 103 MMOL/L (98-107); CREATININE SERUM 0.88 MG/DL (0.60-1.30); GFR ESTIMATED > 60; GLUCOSE 138 MG/DL (70-105); POTASSIUM 3.6 MMOL/L (3.6-5.0); SODIUM 140 MMOL/L (135-145); TOTAL PROTEIN 7.4 GM/DL (6.4-8.2)
[2019-07-28 08:49] LABS: BASOPHILS # (AUTO) 0.1 10^3/uL (0.0-0.1); BASOPHILS % (AUTO) 1 % (0-10); EOSINOPHILS # (AUTO) 0.1 10^3/uL (0.0-0.3); EOSINOPHILS % (AUTO) 2 % (0-10); HEMATOCRIT 45 % (35-52); HEMOGLOBIN 15.4 G/DL (11.5-16.0); LYMPHOCYTES # (AUTO) 1.9 X 10^3 (1.0-4.0); LYMPHOCYTES % (AUTO) 33 % (12-44); MEAN CORPUSCULAR HEMOGLOBIN 28 PG (25-34); MEAN CORPUSCULAR HGB CONC 34 G/DL (32-36); MEAN CORPUSCULAR VOLUME 82 FL (80-99); MEAN PLATELET VOLUME 9.6 FL (7.4-10.4); MONOCYTES # (AUTO) 0.4 X 10^3 (0.0-1.0); MONOCYTES % (AUTO) 6 % (0-12); NEUTROPHILS # (AUTO) 3.5 X 10^3 (1.8-7.8); NEUTROPHILS % (AUTO) 59 % (42-75); PLATELET COUNT 203 10^3/uL (130-400); WHITE BLOOD COUNT 5.9 10^3/uL (4.3-11.0)
[2019-07-28 09:09] LABS: ALANINE AMINOTRANSFERASE 17 U/L (0-55); ALBUMIN 4.2 GM/DL (3.2-4.5); ALKALINE PHOSPHATASE 125 U/L (40-136); BILIRUBIN,TOTAL 0.7 MG/DL (0.1-1.0); BUN/CREATININE RATIO 14; CALCIUM 9.7 MG/DL (8.5-10.1); CARBON DIOXIDE 25 MMOL/L (21-32); CHLORIDE 102 MMOL/L (98-107); CREATININE SERUM 0.84 MG/DL (0.60-1.30); GFR ESTIMATED > 60; GLUCOSE 112 MG/DL (70-105); POTASSIUM 3.7 MMOL/L (3.6-5.0); SODIUM 138 MMOL/L (135-145); TOTAL PROTEIN 7.4 GM/DL (6.4-8.2)
[2019-08-18 08:59] LABS: BASOPHILS % (AUTO) 1 % (0-10); EOSINOPHILS # (AUTO) 0.1 10^3/uL (0.0-0.3); EOSINOPHILS % (AUTO) 2 % (0-10); HEMATOCRIT 45 % (35-52); HEMOGLOBIN 15.5 G/DL (11.5-16.0); LYMPHOCYTES # (AUTO) 1.9 X 10^3 (1.0-4.0); LYMPHOCYTES % (AUTO) 31 % (12-44); MEAN CORPUSCULAR HEMOGLOBIN 27 PG (25-34); MEAN CORPUSCULAR HGB CONC 34 G/DL (32-36); MEAN CORPUSCULAR VOLUME 80 FL (80-99); MEAN PLATELET VOLUME 9.7 FL (7.4-10.4); MONOCYTES # (AUTO) 0.4 X 10^3 (0.0-1.0); MONOCYTES % (AUTO) 7 % (0-12); NEUTROPHILS # (AUTO) 3.7 X 10^3 (1.8-7.8); NEUTROPHILS % (AUTO) 60 % (42-75); PLATELET COUNT 219 10^3/uL (130-400); RED CELL DISTRIBUTION WIDTH 14.7 % (10.0-14.5); WHITE BLOOD COUNT 6.1 10^3/uL (4.3-11.0)
[2019-08-18 09:18] LABS: ALANINE AMINOTRANSFERASE 15 U/L (0-55); ALBUMIN 4.2 GM/DL (3.2-4.5); ALKALINE PHOSPHATASE 129 U/L (40-136); BILIRUBIN,TOTAL 0.9 MG/DL (0.1-1.0); BUN/CREATININE RATIO 11; CALCIUM 9.7 MG/DL (8.5-10.1); CARBON DIOXIDE 26 MMOL/L (21-32); CHLORIDE 98 MMOL/L (98-107); CREATININE SERUM 0.79 MG/DL (0.60-1.30); GFR ESTIMATED > 60; GLUCOSE 117 MG/DL (70-105); POTASSIUM 3.4 MMOL/L (3.6-5.0); SODIUM 136 MMOL/L (135-145); TOTAL PROTEIN 7.7 GM/DL (6.4-8.2)
[~2019-09-08 08:48] MED LIST changes: +ADO TRASTUZUMAB EMTANSINE IV SCH; -BARIUM SUSPENSION 2.1% (VANILLA SILQ) 450 ML PO ONE; +DEXAMETHASONE IV SCH; -HOLD METFORMIN - RECEIVED CONTRAST 20 ML VIAL IV SCH; -IOHEXOL 350 MG/ML 100 ML (OMNIPAQUE 350) VIAL IV ONE; -NS 100 ML (IVPB) BAG IV ONE; +NS IV 1000 ML (CANCER CTR) IV SCH; +NS IV 500 ML (CANCER CENTER) 500 ML ONE; +NS IV SCH; +ONDANSETRON IV SCH; +[UNRECOGNIZED DRUG - OTHER] IV SCH
[2019-09-08 09:10] LABS: BASOPHILS % (AUTO) 1 % (0-10); EOSINOPHILS # (AUTO) 0.1 10^3/uL (0.0-0.3); EOSINOPHILS % (AUTO) 2 % (0-10); HEMATOCRIT 46 % (35-52); HEMOGLOBIN 15.1 G/DL (11.5-16.0); LYMPHOCYTES # (AUTO) 1.9 X 10^3 (1.0-4.0); LYMPHOCYTES % (AUTO) 33 % (12-44); MEAN CORPUSCULAR HEMOGLOBIN 27 PG (25-34); MEAN CORPUSCULAR HGB CONC 33 G/DL (32-36); MEAN CORPUSCULAR VOLUME 82 FL (80-99); MEAN PLATELET VOLUME 9.9 FL (7.4-10.4); MONOCYTES # (AUTO) 0.4 X 10^3 (0.0-1.0); MONOCYTES % (AUTO) 7 % (0-12); NEUTROPHILS # (AUTO) 3.3 X 10^3 (1.8-7.8); NEUTROPHILS % (AUTO) 58 % (42-75); PLATELET COUNT 185 10^3/uL (130-400); RED CELL DISTRIBUTION WIDTH 15.3 % (10.0-14.5); WHITE BLOOD COUNT 5.8 10^3/uL (4.3-11.0)
[2019-09-08 09:17] LABS: ALBUMIN 4.2 GM/DL (3.2-4.5)
[2019-09-08 09:18] LABS: CHLORIDE 101 MMOL/L (98-107); POTASSIUM 3.6 MMOL/L (3.6-5.0); SODIUM 137 MMOL/L (135-145)
[2019-09-08 09:19] LABS: CALCIUM 9.7 MG/DL (8.5-10.1)
[2019-09-08 09:20] LABS: GLUCOSE 108 MG/DL (70-105); TOTAL PROTEIN 7.4 GM/DL (6.4-8.2)
[2019-09-08 09:21] LABS: CARBON DIOXIDE 25 MMOL/L (21-32)
[2019-09-08 09:23] LABS: ALKALINE PHOSPHATASE 120 U/L (40-136)
[2019-09-08 09:24] LABS: CREATININE SERUM 0.79 MG/DL (0.60-1.30); GFR ESTIMATED > 60
[2019-09-08 09:25] LABS: BUN/CREATININE RATIO 15
[2019-09-08 09:27] LABS: ALANINE AMINOTRANSFERASE 17 U/L (0-55)
== END 2019-09-14 | disposition home or self-care (01) ==
LOC: ONC 08:48
PROVIDERS: ATTEND Internal Medicine Hematology & Oncology
DX: Z51.11 Encounter for antineoplastic chemotherapy (principal); C50.412 Malignant neoplasm of upper-outer quadrant of left female breast; C79.51 Secondary malignant neoplasm of bone; Z85.43 Personal history of malignant neoplasm of ovary; Z90.710 Acquired absence of both cervix and uterus; Z92.3 Personal history of irradiation; Z79.899 Other long term (current) drug therapy
CPT/HCPCS: 36591; 80053; 85025; 86300; 96375; 96413

== ENCOUNTER 2019-12-22 08:43 | Outpatient (RCR) | payer BC ==
[2019-09-29 09:08] LABS: BASOPHILS # (AUTO) 0.1 10^3/uL (0.0-0.1); BASOPHILS % (AUTO) 1 % (0-10); EOSINOPHILS # (AUTO) 0.1 10^3/uL (0.0-0.3); EOSINOPHILS % (AUTO) 1 % (0-10); HEMATOCRIT 45 % (35-52); LYMPHOCYTES # (AUTO) 2.1 X 10^3 (1.0-4.0); LYMPHOCYTES % (AUTO) 37 % (12-44); MEAN CORPUSCULAR HEMOGLOBIN 27 PG (25-34); MEAN CORPUSCULAR HGB CONC 33 G/DL (32-36); MEAN CORPUSCULAR VOLUME 82 FL (80-99); MEAN PLATELET VOLUME 10.1 FL (7.4-10.4); MONOCYTES # (AUTO) 0.3 X 10^3 (0.0-1.0); MONOCYTES % (AUTO) 6 % (0-12); NEUTROPHILS # (AUTO) 3.1 X 10^3 (1.8-7.8); NEUTROPHILS % (AUTO) 55 % (42-75); PLATELET COUNT 148 10^3/uL (130-400); RED CELL DISTRIBUTION WIDTH 15.2 % (10.0-14.5); WHITE BLOOD COUNT 5.6 10^3/uL (4.3-11.0)
[2019-09-29 09:30] LABS: ALANINE AMINOTRANSFERASE 15 U/L (0-55); ALBUMIN 4.1 GM/DL (3.2-4.5); ALKALINE PHOSPHATASE 126 U/L (40-136); BILIRUBIN,TOTAL 0.7 MG/DL (0.1-1.0); BUN/CREATININE RATIO 18; CALCIUM 9.7 MG/DL (8.5-10.1); CARBON DIOXIDE 25 MMOL/L (21-32); CHLORIDE 103 MMOL/L (98-107); GFR ESTIMATED > 60; GLUCOSE 115 MG/DL (70-105); POTASSIUM 3.7 MMOL/L (3.6-5.0); SODIUM 139 MMOL/L (135-145); TOTAL PROTEIN 7.3 GM/DL (6.4-8.2)
[2019-10-20 08:58] LABS: BASOPHILS % (AUTO) 1 % (0-10); EOSINOPHILS # (AUTO) 0.1 10^3/uL (0.0-0.3); EOSINOPHILS % (AUTO) 2 % (0-10); HEMATOCRIT 46 % (35-52); HEMOGLOBIN 15.5 G/DL (11.5-16.0); LYMPHOCYTES % (AUTO) 38 % (12-44); MEAN CORPUSCULAR HEMOGLOBIN 28 PG (25-34); MEAN CORPUSCULAR HGB CONC 34 G/DL (32-36); MEAN CORPUSCULAR VOLUME 82 FL (80-99); MEAN PLATELET VOLUME 10.1 FL (7.4-10.4); MONOCYTES # (AUTO) 0.3 X 10^3 (0.0-1.0); MONOCYTES % (AUTO) 5 % (0-12); NEUTROPHILS # (AUTO) 2.8 X 10^3 (1.8-7.8); NEUTROPHILS % (AUTO) 54 % (42-75); PLATELET COUNT 156 10^3/uL (130-400); RED CELL DISTRIBUTION WIDTH 15.4 % (10.0-14.5); WHITE BLOOD COUNT 5.2 10^3/uL (4.3-11.0)
[2019-10-20 09:15] LABS: ALANINE AMINOTRANSFERASE 14 U/L (0-55); ALKALINE PHOSPHATASE 118 U/L (40-136); BILIRUBIN,TOTAL 0.6 MG/DL (0.1-1.0); BUN/CREATININE RATIO 9; CALCIUM 9.6 MG/DL (8.5-10.1); CARBON DIOXIDE 24 MMOL/L (21-32); CHLORIDE 104 MMOL/L (98-107); CREATININE SERUM 0.81 MG/DL (0.60-1.30); GFR ESTIMATED > 60; GLUCOSE 154 MG/DL (70-105); POTASSIUM 3.7 MMOL/L (3.6-5.0); SODIUM 140 MMOL/L (135-145); TOTAL PROTEIN 7.3 GM/DL (6.4-8.2)
[2019-11-10 09:08] LABS: BASOPHILS % (AUTO) 1 % (0-10); EOSINOPHILS # (AUTO) 0.1 10^3/uL (0.0-0.3); EOSINOPHILS % (AUTO) 2 % (0-10); HEMATOCRIT 44 % (35-52); HEMOGLOBIN 15.1 G/DL (11.5-16.0); LYMPHOCYTES # (AUTO) 1.6 X 10^3 (1.0-4.0); LYMPHOCYTES % (AUTO) 35 % (12-44); MEAN CORPUSCULAR HEMOGLOBIN 28 PG (25-34); MEAN CORPUSCULAR HGB CONC 34 G/DL (32-36); MEAN CORPUSCULAR VOLUME 82 FL (80-99); MONOCYTES # (AUTO) 0.3 X 10^3 (0.0-1.0); MONOCYTES % (AUTO) 7 % (0-12); NEUTROPHILS # (AUTO) 2.5 X 10^3 (1.8-7.8); NEUTROPHILS % (AUTO) 55 % (42-75); PLATELET COUNT 150 10^3/uL (130-400); RED CELL DISTRIBUTION WIDTH 15.5 % (10.0-14.5); WHITE BLOOD COUNT 4.6 10^3/uL (4.3-11.0)
[2019-11-10 09:31] LABS: ALANINE AMINOTRANSFERASE 14 U/L (0-55); ALBUMIN 3.9 GM/DL (3.2-4.5); ALKALINE PHOSPHATASE 116 U/L (40-136); BILIRUBIN,TOTAL 0.8 MG/DL (0.1-1.0); BUN/CREATININE RATIO 12; CALCIUM 9.2 MG/DL (8.5-10.1); CARBON DIOXIDE 24 MMOL/L (21-32); CHLORIDE 103 MMOL/L (98-107); CREATININE SERUM 0.77 MG/DL (0.60-1.30); GFR ESTIMATED > 60; GLUCOSE 163 MG/DL (70-105); POTASSIUM 3.5 MMOL/L (3.6-5.0); SODIUM 139 MMOL/L (135-145); TOTAL PROTEIN 7.1 GM/DL (6.4-8.2)
[2019-12-01 09:01] LABS: BASOPHILS % (AUTO) 0 % (0-10); EOSINOPHILS % (AUTO) 0 % (0-10); HEMATOCRIT 46 % (35-52); HEMOGLOBIN 15.9 G/DL (11.5-16.0); LYMPHOCYTES # (AUTO) 1.1 X 10^3 (1.0-4.0); LYMPHOCYTES % (AUTO) 17 % (12-44); MEAN CORPUSCULAR HEMOGLOBIN 28 PG (25-34); MEAN CORPUSCULAR HGB CONC 34 G/DL (32-36); MEAN CORPUSCULAR VOLUME 81 FL (80-99); MONOCYTES # (AUTO) 0.2 X 10^3 (0.0-1.0); MONOCYTES % (AUTO) 3 % (0-12); NEUTROPHILS # (AUTO) 5.5 X 10^3 (1.8-7.8); NEUTROPHILS % (AUTO) 80 % (42-75); PLATELET COUNT 194 10^3/uL (130-400); RED CELL DISTRIBUTION WIDTH 15.3 % (10.0-14.5); WHITE BLOOD COUNT 6.8 10^3/uL (4.3-11.0)
[2019-12-01 09:22] LABS: ALANINE AMINOTRANSFERASE 25 U/L (0-55); ALBUMIN 4.2 GM/DL (3.2-4.5); ALKALINE PHOSPHATASE 142 U/L (40-136); BILIRUBIN,TOTAL 1.3 MG/DL (0.1-1.0); BUN/CREATININE RATIO 16; CALCIUM 9.9 MG/DL (8.5-10.1); CARBON DIOXIDE 24 MMOL/L (21-32); CHLORIDE 100 MMOL/L (98-107); CREATININE SERUM 0.77 MG/DL (0.60-1.30); GFR ESTIMATED > 60; GLUCOSE 131 MG/DL (70-105); POTASSIUM 3.5 MMOL/L (3.6-5.0); SODIUM 139 MMOL/L (135-145); TOTAL PROTEIN 7.6 GM/DL (6.4-8.2)
[2019-12-09 09:41] LABS: ALANINE AMINOTRANSFERASE 21 U/L (0-55); ALKALINE PHOSPHATASE 145 U/L (40-136); BILIRUBIN,TOTAL 0.9 MG/DL (0.1-1.0); BUN/CREATININE RATIO 15; CALCIUM 9.9 MG/DL (8.5-10.1); CARBON DIOXIDE 29 MMOL/L (21-32); CHLORIDE 98 MMOL/L (98-107); GFR ESTIMATED > 60; GLUCOSE 103 MG/DL (70-105); POTASSIUM 3.4 MMOL/L (3.6-5.0); SODIUM 140 MMOL/L (135-145); TOTAL PROTEIN 7.8 GM/DL (6.4-8.2)
[~2019-12-22 08:43] MED LIST changes: +ADO TRASTUZUMAB EMTANSINE IV ONE; +NS IV ONE; +[UNRECOGNIZED DRUG - OTHER] IV SCH
[2019-12-22 09:11] LABS: BASOPHILS % (AUTO) 1 % (0-10); EOSINOPHILS # (AUTO) 0.1 10^3/uL (0.0-0.3); EOSINOPHILS % (AUTO) 1 % (0-10); HEMATOCRIT 45 % (35-52); LYMPHOCYTES % (AUTO) 31 % (12-44); MEAN CORPUSCULAR HEMOGLOBIN 27 PG (25-34); MEAN CORPUSCULAR HGB CONC 34 G/DL (32-36); MEAN CORPUSCULAR VOLUME 82 FL (80-99); MONOCYTES # (AUTO) 0.4 X 10^3 (0.0-1.0); MONOCYTES % (AUTO) 7 % (0-12); NEUTROPHILS # (AUTO) 3.9 X 10^3 (1.8-7.8); NEUTROPHILS % (AUTO) 61 % (42-75); PLATELET COUNT 195 10^3/uL (130-400); RED CELL DISTRIBUTION WIDTH 14.8 % (10.0-14.5); WHITE BLOOD COUNT 6.5 10^3/uL (4.3-11.0)
[2019-12-22] MEDS ORDERED: [UNRECOGNIZED DRUG - OTHER] IV SCH (09:30)
[2019-12-22] MEDS ORDERED: ADO TRASTUZUMAB EMTANSINE IV SCH (09:30)
[2019-12-22 09:32] LABS: ALANINE AMINOTRANSFERASE 18 U/L (0-55); ALKALINE PHOSPHATASE 143 U/L (40-136); BUN/CREATININE RATIO 15; CALCIUM 9.4 MG/DL (8.5-10.1); CARBON DIOXIDE 24 MMOL/L (21-32); CHLORIDE 100 MMOL/L (98-107); CREATININE SERUM 0.78 MG/DL (0.60-1.30); GFR ESTIMATED > 60; GLUCOSE 106 MG/DL (70-105); POTASSIUM 3.2 MMOL/L (3.6-5.0); SODIUM 138 MMOL/L (135-145); TOTAL PROTEIN 7.5 GM/DL (6.4-8.2)
== END 2019-12-28 | disposition home or self-care (01) ==
LOC: ONC 08:43
PROVIDERS: ATTEND Internal Medicine Hematology & Oncology
DX: Z51.11 Encounter for antineoplastic chemotherapy (principal); C50.412 Malignant neoplasm of upper-outer quadrant of left female breast; C79.51 Secondary malignant neoplasm of bone; Z85.43 Personal history of malignant neoplasm of ovary; Z90.710 Acquired absence of both cervix and uterus; Z92.3 Personal history of irradiation; Z79.899 Other long term (current) drug therapy
CPT/HCPCS: 80053; 85025; 86300; 96375; 96413; G0463; 36591

== ENCOUNTER → 2020-03-09 | Outpatient (CLI) | payer BC ==
[~2020-03-09] MED LIST changes: -ADO TRASTUZUMAB EMTANSINE IV ONE; -ADO TRASTUZUMAB EMTANSINE IV SCH; +CATHETER FLUSH 10 ML SYR IV PRN; -DEXAMETHASONE IV SCH; -NS IV 1000 ML (CANCER CTR) IV SCH; -NS IV 500 ML (CANCER CENTER) 500 ML ONE; -NS IV ONE; -NS IV SCH; -ONDANSETRON IV SCH; -[UNRECOGNIZED DRUG - OTHER] IV SCH; -[UNRECOGNIZED DRUG - OTHER] IV SCH
--- NOTE | 2020-03-09 11:18 | Diagnostic Imaging Report ---
EXAMINATION: CT Chest with intravenous contrast, CT Abdomen and Pelvis without and with intravenous contrast. TECHNIQUE: Pre and post intravenous contrast axial imaging of the abdomen and pelvis and post contrast axial imaging of the chest were performed. All CT scans use one or more of the following dose optimizing techniques: automated exposure control, MA and/or KvP adjustment based on a patient size and exam type, or iterative reconstruction. HISTORY: Breast cancer restaging. COMPARISON: CT chest, abdomen, and pelvis 09/06/2019. FINDINGS: Thyroid: The thyroid is normal. Mediastinum: Heart size is normal without significant pericardial effusion. Calcifications of the aorta and coronary vessels. Thoracic aorta is normal in caliber. No suspicious lymphadenopathy. Lungs and airways: The lungs are clear without consolidation, pleural effusion, or pneumothorax. There is a new 0.5 cm pulmonary nodule within the right upper lobe (series 5, image 29). There is a new 0.4 cm pulmonary nodule within the inferior right upper lobe (series 5, image 57). Stable groundglass nodule within the superior right lower lobe measuring 0.9 cm (series 5, image 41). There are multiple new left centrally cystic pulmonary nodules measuring up to 0.6 cm within the left lower lobe (series 5, image 59). There is a new 0.4 cm subpleural pulmonary nodule within the left upper lobe (series 5, image 62). The airways are normal. Solid organs: The liver is normal without focal lesion. There is no biliary ductal dilation. There is a 2.6 cm gallstone within the gallbladder. Pancreas is normal. Spleen is normal. Adrenal glands are normal. The kidneys are normal without hydronephrosis. Bowel: The stomach and small bowel are normal without obstruction. The colon is normal. The appendix is nonvisualized. Peritoneum: There is no intraperitoneal free fluid or free air. Multiple surgical clips within the left abdomen. No suspicious lymphadenopathy. Vasculature: Calcification of the aorta without aneurysm. Musculoskeletal: Multiple mixed lytic and sclerotic lesions within the T5, T6, T9, T12, and L2 vertebral bodies. Stable sclerotic lesion within the right ilium. Stable left rib mixed lytic and sclerotic lesions. No suspicious osseous lesion or acute compression fracture. Multiple anterior abdominal wall hernias containing loops of bowel, not significantly changed. Pelvis: The uterus is surgically absent. No adnexal mass. The urinary bladder is normal. IMPRESSION: 1. Multiple new bilateral pulmonary nodules. Attention on follow-up imaging. 2. Stable osseous metastatic disease. 3. Cholelithiasis. Dictated by: Dictated on workstation # [id number]
--- NOTE | 2020-03-09 14:53 | Diagnostic Imaging Report ---
Indication: Breast carcinoma. Patient was administered 26.8 mCi technetium 99m MDP intravenously and whole-body imaging was performed after 3 hour delay. Correlation is made with prior whole body bone scan from 09/06/2019. Abnormal uptake of activity by the axial and appendicular skeletons noted. There is uptake by the kidneys with excretion into the urinary bladder. Previously noted activity in the left lateral 7th and 8th ribs is similar to prior exam. There is also uptake in lower thoracic spine, similar to prior exam. There is a focus of increased uptake involving the left scapula. IMPRESSION: Stable uptake left-sided ribs and lower thoracic spine when compared to exam from August. There is a new focus of abnormal uptake involving the left scapula, indeterminate. No other significant abnormality is seen. Dictated by: Dictated on workstation # [id number]
== END ==
LOC: CARD 10:00
PROVIDERS: ATTEND Nurse Practitioner Adult Health
DX: Z01.89 Encounter for other specified special examinations (principal); I34.0 Nonrheumatic mitral (valve) insufficiency; I11.9 Hypertensive heart disease without heart failure; C56.9 Malignant neoplasm of unspecified ovary; C50.919 Malignant neoplasm of unspecified site of unspecified female breast; C79.51 Secondary malignant neoplasm of bone; Z72.0 Tobacco use
CPT/HCPCS: 71260; 74178; 78306; 93306; A9503

== ENCOUNTER 2020-04-03 08:55 | Outpatient (RCR) | payer BC ==
[2020-01-12 10:06] LABS: BASOPHILS % (AUTO) 1 % (0-10); EOSINOPHILS # (AUTO) 0.1 10^3/uL (0.0-0.3); EOSINOPHILS % (AUTO) 1 % (0-10); HEMATOCRIT 44 % (35-52); HEMOGLOBIN 14.8 G/DL (11.5-16.0); LYMPHOCYTES # (AUTO) 1.7 X 10^3 (1.0-4.0); LYMPHOCYTES % (AUTO) 29 % (12-44); MEAN CORPUSCULAR HEMOGLOBIN 28 PG (25-34); MEAN CORPUSCULAR HGB CONC 34 G/DL (32-36); MEAN CORPUSCULAR VOLUME 83 FL (80-99); MEAN PLATELET VOLUME 10.2 FL (7.4-10.4); MONOCYTES # (AUTO) 0.4 X 10^3 (0.0-1.0); MONOCYTES % (AUTO) 6 % (0-12); NEUTROPHILS # (AUTO) 3.5 X 10^3 (1.8-7.8); NEUTROPHILS % (AUTO) 62 % (42-75); PLATELET COUNT 142 10^3/uL (130-400); WHITE BLOOD COUNT 5.7 10^3/uL (4.3-11.0)
[2020-01-12 10:29] LABS: ALANINE AMINOTRANSFERASE 18 U/L (0-55); ALKALINE PHOSPHATASE 141 U/L (40-136); BILIRUBIN,TOTAL 1.1 MG/DL (0.1-1.0); BUN/CREATININE RATIO 15; CALCIUM 9.3 MG/DL (8.5-10.1); CARBON DIOXIDE 25 MMOL/L (21-32); CHLORIDE 104 MMOL/L (98-107); CREATININE SERUM 0.74 MG/DL (0.60-1.30); GFR ESTIMATED > 60; GLUCOSE 106 MG/DL (70-105); POTASSIUM 3.6 MMOL/L (3.6-5.0); SODIUM 140 MMOL/L (135-145); TOTAL PROTEIN 7.3 GM/DL (6.4-8.2)
[2020-02-02 09:08] LABS: BASOPHILS # (AUTO) 0.1 10^3/uL (0.0-0.1); BASOPHILS % (AUTO) 1 % (0-10); EOSINOPHILS # (AUTO) 0.1 10^3/uL (0.0-0.3); EOSINOPHILS % (AUTO) 1 % (0-10); HEMATOCRIT 44 % (35-52); HEMOGLOBIN 14.5 G/DL (11.5-16.0); LYMPHOCYTES # (AUTO) 1.7 X 10^3 (1.0-4.0); LYMPHOCYTES % (AUTO) 32 % (12-44); MEAN CORPUSCULAR HEMOGLOBIN 27 PG (25-34); MEAN CORPUSCULAR HGB CONC 33 G/DL (32-36); MEAN CORPUSCULAR VOLUME 83 FL (80-99); MONOCYTES # (AUTO) 0.3 X 10^3 (0.0-1.0); MONOCYTES % (AUTO) 6 % (0-12); NEUTROPHILS # (AUTO) 3.3 X 10^3 (1.8-7.8); NEUTROPHILS % (AUTO) 60 % (42-75); PLATELET COUNT 157 10^3/uL (130-400); WHITE BLOOD COUNT 5.5 10^3/uL (4.3-11.0)
[2020-02-02 09:30] LABS: ALANINE AMINOTRANSFERASE 18 U/L (0-55); ALBUMIN 3.9 GM/DL (3.2-4.5); ALKALINE PHOSPHATASE 153 U/L (40-136); BILIRUBIN,TOTAL 0.9 MG/DL (0.1-1.0); BUN/CREATININE RATIO 16; CALCIUM 9.6 MG/DL (8.5-10.1); CARBON DIOXIDE 27 MMOL/L (21-32); CHLORIDE 101 MMOL/L (98-107); CREATININE SERUM 0.77 MG/DL (0.60-1.30); GFR ESTIMATED > 60; GLUCOSE 101 MG/DL (70-105); POTASSIUM 3.6 MMOL/L (3.6-5.0); SODIUM 140 MMOL/L (135-145); TOTAL PROTEIN 7.1 GM/DL (6.4-8.2)
[2020-02-23 09:08] LABS: BASOPHILS # (AUTO) 0.1 10^3/uL (0.0-0.1); BASOPHILS % (AUTO) 1 % (0-10); EOSINOPHILS # (AUTO) 0.1 10^3/uL (0.0-0.3); EOSINOPHILS % (AUTO) 2 % (0-10); HEMATOCRIT 46 % (35-52); LYMPHOCYTES # (AUTO) 1.5 10^3/uL (1.0-4.0); LYMPHOCYTES % (AUTO) 30 % (12-44); MEAN CORPUSCULAR HEMOGLOBIN 28 pg (25-34); MEAN CORPUSCULAR HGB CONC 33 g/dL (32-36); MEAN CORPUSCULAR VOLUME 84 fL (80-99); MEAN PLATELET VOLUME 10.8 fL (9.0-12.2); MONOCYTES # (AUTO) 0.3 10^3/uL (0.0-1.0); MONOCYTES % (AUTO) 6 % (0-12); NEUTROPHILS # (AUTO) 3.2 10^3/uL (1.8-7.8); NEUTROPHILS % (AUTO) 61 % (42-75); PLATELET COUNT 141 10^3/uL (130-400); WHITE BLOOD COUNT 5.1 10^3/uL (4.3-11.0)
[2020-02-23 09:26] LABS: ALANINE AMINOTRANSFERASE 18 U/L (0-55); ALBUMIN 3.9 GM/DL (3.2-4.5); ALKALINE PHOSPHATASE 159 U/L (40-136); BILIRUBIN,TOTAL 0.9 MG/DL (0.1-1.0); BUN/CREATININE RATIO 15; CALCIUM 9.2 MG/DL (8.5-10.1); CARBON DIOXIDE 25 MMOL/L (21-32); CHLORIDE 104 MMOL/L (98-107); CREATININE SERUM 0.72 MG/DL (0.60-1.30); GFR ESTIMATED > 60; GLUCOSE 109 MG/DL (70-105); POTASSIUM 3.7 MMOL/L (3.6-5.0); SODIUM 140 MMOL/L (135-145); TOTAL PROTEIN 7.2 GM/DL (6.4-8.2)
[2020-03-15 09:26] LABS: BASOPHILS % (AUTO) 1 % (0-10); HEMOGLOBIN 14.9 g/dL (11.5-16.0)
[2020-03-15 09:28] LABS: EOSINOPHILS # (AUTO) 0.1 10^3/uL (0.0-0.3); EOSINOPHILS % (AUTO) 2 % (0-10); HEMATOCRIT 46 % (35-52); LYMPHOCYTES # (AUTO) 1.6 10^3/uL (1.0-4.0); LYMPHOCYTES % (AUTO) 32 % (12-44); MEAN CORPUSCULAR HEMOGLOBIN 27 pg (25-34); MEAN CORPUSCULAR HGB CONC 33 g/dL (32-36); MEAN CORPUSCULAR VOLUME 84 fL (80-99); MEAN PLATELET VOLUME 10.1 fL (9.0-12.2); MONOCYTES # (AUTO) 0.3 10^3/uL (0.0-1.0); MONOCYTES % (AUTO) 6 % (0-12); NEUTROPHILS # (AUTO) 2.9 10^3/uL (1.8-7.8); NEUTROPHILS % (AUTO) 59 % (42-75); PLATELET COUNT 137 10^3/uL (130-400); WHITE BLOOD COUNT 4.9 10^3/uL (4.3-11.0)
[2020-03-15 09:43] LABS: ALANINE AMINOTRANSFERASE 17 U/L (0-55); ALBUMIN 3.9 GM/DL (3.2-4.5); ALKALINE PHOSPHATASE 147 U/L (40-136); BILIRUBIN,TOTAL 1.1 MG/DL (0.1-1.0); BUN/CREATININE RATIO 21; CALCIUM 9.4 MG/DL (8.5-10.1); CARBON DIOXIDE 28 MMOL/L (21-32); CHLORIDE 102 MMOL/L (98-107); CREATININE SERUM 0.72 MG/DL (0.60-1.30); GFR ESTIMATED > 60; GLUCOSE 102 MG/DL (70-105); POTASSIUM 3.6 MMOL/L (3.6-5.0); SODIUM 140 MMOL/L (135-145); TOTAL PROTEIN 7.4 GM/DL (6.4-8.2)
[~2020-04-03 08:55] MED LIST changes: +ADO TRASTUZUMAB EMTANSINE IV SCH; -CATHETER FLUSH 10 ML SYR IV PRN; +FULVESTRANT 250 MG/5 ML SYR (CANCER CENTER) IM SCH; +NS IV 1000 ML (CANCER CTR) IV SCH; +[UNRECOGNIZED DRUG - OTHER] IV SCH
== END 2020-04-11 | disposition home or self-care (01) ==
LOC: ONC 08:55
PROVIDERS: ATTEND Internal Medicine Hematology & Oncology
DX: Z51.11 Encounter for antineoplastic chemotherapy (principal); C50.412 Malignant neoplasm of upper-outer quadrant of left female breast; C79.51 Secondary malignant neoplasm of bone; M85.88 Other specified disorders of bone density and structure, other site; I10 Essential (primary) hypertension; Z85.43 Personal history of malignant neoplasm of ovary; Z90.710 Acquired absence of both cervix and uterus; Z92.3 Personal history of irradiation; Z79.899 Other long term (current) drug therapy; Z92.21 Personal history of antineoplastic chemotherapy; Z90.12 Acquired absence of left breast and nipple
CPT/HCPCS: 80053; 85025; 86300; 96375; 96413; G0463; 36591; 96402

== ENCOUNTER → 2020-04-05 | Outpatient (CLI) | payer BC ==
[~2020-04-05] VITALS: Ht 172 cm; Wt 83.0 kg
[~2020-04-05] MED LIST changes: -ADO TRASTUZUMAB EMTANSINE IV SCH; +CATHETER FLUSH 10 ML SYR IV PRN; -FULVESTRANT 250 MG/5 ML SYR (CANCER CENTER) IM SCH; -NS IV 1000 ML (CANCER CTR) IV SCH; +REGADENOSON 0.4 MG/5 ML SYR (LEXISCAN) IV ONE; -[UNRECOGNIZED DRUG - OTHER] IV SCH
[2020-04-05 09:20] VITALS: BP 147/75
--- NOTE | 2020-04-05 11:51 | Cardiology Stress Test Report ---
Stress Test Report Date of Procedure/Referring: Date of Procedure: Apr 05, 2020 PCP Julia Saleh MD Admitting Physician Drew Sparks MD Indications: Congestive heart failure Baseline Heart Rate: 71 Baseline Blood Pressure: Blood Pressure Systolic: 147 Blood Pressure Diastolic: 75 Baseline Vitals Vital Signs Date Time Temp Pulse Resp B/P (MAP) Pulse Ox O2 Delivery O2 Flow Rate FiO2 04/05/20 09:20 71 147/75 (99) 98 Baseline EKG: Baseline EKG: normal sinus rhythm Summary After explaining the procedure to the patient, she signed a consent and then brought to the stress nuclear laboratory. Patient received 0.4 mg Lexiscan for stress test, ECG, heart rate and blood pressure were monitored continuously. Resting and stress dose of radio tracer were injected, imaging was acquired and reviewed in short axis, horizontal long axis and vertical long axis views. TID: 1.12 SSS: 52 SDS: 0 EF: 20 1. Patient tolerated Lexiscan well 2. Total infarction of the mid to apical anterior wall, true apex, inferoapical segment, extending to the apical segment of the anterior lateral and inferolateral wall with no significant reversibility 3. Dilated left ventricle, diffuse left ventricular hypokinesia, dyskinesia of the apex, anteroapical and inferoapical segment, EF 20 percent JULIA SALEH MD Apr 05, 2020 11:51
== END ==
LOC: CARD 08:15
PROVIDERS: ATTEND Internal Medicine Cardiovascular Disease
DX: I11.0 Hypertensive heart disease with heart failure (principal); I50.9 Heart failure, unspecified; Z72.0 Tobacco use
CPT/HCPCS: 78452; 93017; A9502

== ENCOUNTER 2020-05-03 10:00 | Day surgery (SDC) | payer BC ==
[2020-05-03] VITALS (8 sets, daily range): BP systolic 104–137; BP diastolic 48–79
[~2020-05-03] VITALS: Ht 172 cm; Wt 83.0 kg
--- NOTE | 2020-05-03 08:49 | Diagnostic Imaging Report ---
INDICATION: Preop. Coronary artery disease. FINDINGS: The upright chest shows the heart size to be upper normal. The vascularity is normal. The lungs are clear. There is no effusion or pneumothorax. A Port-A-Cath is present. IMPRESSION: No acute abnormality is seen with no change from 10/10/2016. Dictated by: Dictated on workstation # [id number]
[2020-05-03 09:02] LABS: HEMOGLOBIN 14.8 g/dL (11.5-16.0); MEAN PLATELET VOLUME 9.9 fL (9.0-12.2); WHITE BLOOD COUNT 4.9 10^3/uL (4.3-11.0)
[2020-05-03 09:25] LABS: PROTHROMBIN TIME PATIENT 13.4 SEC (12.2-14.7)
[2020-05-03 09:28] LABS: ALANINE AMINOTRANSFERASE 14 U/L (0-55); ALBUMIN 3.9 GM/DL (3.2-4.5); ALKALINE PHOSPHATASE 156 U/L (40-136); BILIRUBIN,TOTAL 0.8 MG/DL (0.1-1.0); BUN/CREATININE RATIO 17; CALCIUM 9.5 MG/DL (8.5-10.1); CARBON DIOXIDE 29 MMOL/L (21-32); CHLORIDE 102 MMOL/L (98-107); CHOLESTEROL 256 MG/DL (< 200); GFR ESTIMATED > 60; GLUCOSE 129 MG/DL (70-105); HDL CHOLESTEROL 64 MG/DL (40-60); POTASSIUM 3.5 MMOL/L (3.6-5.0); SODIUM 142 MMOL/L (135-145); TOTAL PROTEIN 7.1 GM/DL (6.4-8.2); TRIGLYCERIDES 100 MG/DL (<150); VLDL CHOLESTEROL 20 MG/DL (5-40)
[~2020-05-03 10:00] MED LIST changes: -CATHETER FLUSH 10 ML SYR IV PRN; +EMPA10TA PO; +FULV250D2 IM; +HEParin (CATH LAB) 2,000 ML IV ONE; +HYDR25TA4 PO; +LIDOCAINE 1% INJ 20 ML 20 ML VIAL ONE; +LOSA50TA63 PO; +MELA10TA2 PO; +MTP25TSR PO; +NS IV 1000 ML 1,000 ML IV SCH; +NS IV 1000 ML 1,000 ML ONE; +POTA10TA6 PO; -REGADENOSON 0.4 MG/5 ML SYR (LEXISCAN) IV ONE
[2020-05-03] MEDS ORDERED: VERAPAMIL 5 MG/2 ML (CALAN) VIAL IV ONE (10:14)
[2020-05-03] MEDS ORDERED: MIDAZOLAM 5 MG/5 ML (VERSED) VIAL ONE (10:14)
[2020-05-03] MEDS ORDERED: fentaNYL INJECTION 100 MCG/2 ML AMP ONE (10:14)
[2020-05-03] MEDS ORDERED: NITRO DRIP 25000 MCG/D5W 250 ML IV ONE (10:15)
[2020-05-03] MEDS ORDERED: HEParin 1000 UNIT/ML (10ML VIAL) FOR BOLUS ONE (10:15)
--- NOTE | 2020-05-03 10:37 | Cardiac Procedure Note-CS/ASA ---
Pre-Procedure Note Pre-Op Procedure Note H&P Reviewed The H&P was reviewed, patient examined and no changes noted. Date H&P Reviewed: May 03, 2020 Time H&P Reviewed: 10:37 Conscious Sedation Pre-Proced Time 10:37 ASA Score 3 For ASA 3 and 4: Consider anesthesia and medical clearance. Also, for patients with a history of failed moderate sedation consider anesthesia. Airway Lungs Heart ASA score ASA 1: a normal healthy patient ASA 2: a patient with a mild systemic disease (mid diabetes, controlled hypertension, obesity x ASA 3: a patient with a severe systemic disease that limits activity (angina, COPD, prior Myocardial infarction) ASA 4: a patient with an incapacitating disease that is a constant threat to life (CHF, renal failure) ASA 5: a moribund patient not expected to survive 24 hrs. (ruptured aneurysm) ASA 6: a declared brain- patient whose organs are being harvested. For emergent operations, add the letter E after the classification Mallampati Classification Grade 3 Sedation Plan Analgesia, Amnesia, Plan communicated to team members, Discussed options with patient/fam, Discussed risks with patient/fam The patient is an appropriate candidate to undergo the planned procedure, sedation, and anesthesia. The patient immediately re-assessed prior to indication. JULIA CHEW MD May 03, 2020 10:37
[2020-05-03] MEDS ORDERED: ASPI-1238 PO (11:28)
--- NOTE | 2020-05-03 11:28 | Discharge Inst-Post CATH ---
Discharge Inst-CATH/EP Problems Reviewed?: Yes Post Cardiac Cath/EP D/C Inst Follow Up/Plan Appointment with Dr. Saleh's office in 2-4 weeks <b>CARDIAC CATH/EP PROCEDURE DISCHARGE INSTRUCTIONS</b> ACTIVITY * Go Home directly and rest. * Limit activity of the leg (or wrist if it was used) for 7 days including aerobics, swimming, jogging, bicycling, etc. * Restrict stair-climbing for 7 days if possible, if not, climb up with your non-cath leg, then bring together on the same step. * Avoid lifting, pushing, pulling or excessive movement of the affected extremity for 7 days. * Customary sexual activity may be resumed after 2 days-use caution not to use a position that strains or causes pain to the affected extremity. * No driving for 24 hours. * NO SMOKING. * Avoid straining for bowel movements for 7 days. * Gentle walking on level ground is allowed. * Returning to work will depend on the type of procedure and the results. Your doctor will discuss this with you. CALL YOUR DOCTOR FOR ANY OF THE FOLLOWING: *If bleeding from the puncture site occurs- Apply gentle pressure to site with clean cloth and call your doctor or EMS. * If a knot or lump forms under the skin, increases in size, or causes pain. * If bruising appears to be worsening or moving further down your leg instead of disappearing. * Temperature above 101 F. CARE OF YOUR GROIN INCISION; * Bruising or purple discoloration of the skin near the puncture site is common. * You may shower only, no bathtub bathing for 5 days. Be careful to avoid slipping as your leg may feel stiff. * If a closure device was used on your femoral artery, please see the attached guide regarding care of the device and your leg. * Leave dressing on FOR 24 hours. CARE OF YOUR WRIST INCISION; * Bruising or purple discoloration of the skin near the puncture site is common. * You may shower. * DO NOT submerge wrist. * Leave dressing on FOR 24 hours. JULIA SALEH MD May 03, 2020 11:28
[2020-05-03] MEDS ORDERED: NS IV 1000 ML 1,000 ML IV SCH (11:29)
--- NOTE | 2020-05-03 11:38 | Cardiac Cath Report ---
Cardiac Cath Report Physician (s)/Workplace Trainer And Assessor (s) Physician JULIA CHEW MD Pre-Procedure Diagnosis Pre-Procedure Diagnosis: coronary artery disease Post-Procedure Note Procedure Start Date: May 03, 2020 Name of Procedure: Left heart catheterization Left ventriculogram Aortic arch angiogram Findings/Procedure Note PROCEDURE NOTE: 64-year-old lady with history of severe cardiomyopathy, had an abnormal stress test, scheduled for cardiac catheterization After explaining the procedure to the patient, all pros and cons were explained, all questions were answered. The patient signed the consent and then she was placed on the cardiac catheterization laboratory. Groin was prepped SL fashion local anesthesia was used. Sheath placed in the right radial artery, [place] catheter was advanced to the left ventricular cavity, pressure was measured pullback to the thoracic aorta then advanced in the left coronary system and a gram was done, exchanged to [place] right catheter and intubated the right coronary artery and angiogram was done and it was exchanged again to pigtail catheter and advanced to the left ventricular cavity pressure was measured again and then left ventriculogram was done and pullback LV to aorta was done and due to the extensive nature of the disease and possible bypass surgery and tortuosity I decided to evaluate aortic arch angiogram. Left ventriculogram was done Aortic arch angiogram was done At the end of the procedure the sheath was removed. Closure device FINDINGS: Hemodynamics LV 105/13, end-diastolic pressure of 13 Aorta 98/57 mean of 71 ANATOMY: Left Main is free of obstructive disease Left Anterior Descending is totally occluded at the midportion, the first diagonal artery has moderate to severe stenosis proximally Left Circumflex has eccentric lesion in the proximal portion which is moderate to severe, another lesion at the midportion. Large artery. Right Coronory Artery is large dominant artery with moderate severe stenosis proximally LV Gram was done showing aneurysmal apex, akinesia of the apex, diffuse hypokinesia estimated ejection fraction 20 percent Aorta evaluation done with aortic arch angiogram, no dissection or aneurysm, mild tortuosity in the brachiocephalic artery, nonobstructive disease, left carotid and left subclavian arteries has no obstructive disease CONCLUSION: 1. Severe ischemic cardiomyopathy with aneurysmal apex, ejection fraction 20 percent 2. Severe multivessel disease including total occlusion of the mid LAD, severe lesion in the proximal first diagonal, proximal and mid circumflex artery and proximal right coronary artery 3. Normal aortic arch and great vessels of the neck DISCUSSION AND RECOMMENDATION: Patient was significant complex management issue. I will proceed with viability study to the anterior wall and apex. If it is not viable wound will arrange for high risk intervention to the circumflex and right coronary artery, otherwise if the anterior wall and apex are viable will consider for referral for bypass surgery Anesthesia Type: Conscious Sedation Estimated blood loss (mL): 20 ml Contrast Amount: 85 ml Total Radiation Dose: 725 mGy Post-Procedure Diagnosis Post-operative diagnosis: Coronary artery disease Congestive heart failure Hypertension Hyperlipidemia JULIA CHEW MD May 03, 2020 11:38 am
[2020-05-03] MEDS ORDERED: ATOR40TA PO (11:39)
--- NOTE | 2020-05-03 12:42 | NUR ---
SPOKE WITH THE PT (SHE HAD HER HOME MEDS) AND CALLED [facility] TO COMPLETE THE MED REC 04-18-2020 METOPROLOL SUCC 25MG #30/30DS 04-26-2020 HCTZ 25MG #30/30DS 04-28-2020 JARDIANCE 10MG #30/30DS 04-29-2020 LOSARTAN 50MG #30/30DS ON THE MEDICATION LIST FROM [facility] HOWEVER [facility] HAS NEVER FILLED THIS MED AND PT ISNT SURE IF SHE IS TAKING. FOR THESE REASONS I DID NOT INCLUDE ON THE MED REC OTC MEDS: MELATONIN
== END 2020-05-03 13:40 ==
LOC: CATH 10:00
PROVIDERS: ATTEND Internal Medicine Cardiovascular Disease
DX: I25.10 Atherosclerotic heart disease of native coronary artery without angina pectoris (principal); I11.0 Hypertensive heart disease with heart failure; I50.9 Heart failure, unspecified; E78.5 Hyperlipidemia, unspecified; E72.51 Non-ketotic hyperglycinemia; E11.9 Type 2 diabetes mellitus without complications; C79.81 Secondary malignant neoplasm of breast; E66.9 Obesity, unspecified; Z68.28 Body mass index [BMI] 28.0-28.9, adult; F17.210 Nicotine dependence, cigarettes, uncomplicated; Z79.899 Other long term (current) drug therapy; Z92.21 Personal history of antineoplastic chemotherapy; Z85.43 Personal history of malignant neoplasm of ovary
CPT/HCPCS: 36221; 71045; 80053; 80061; 85027; 85610; 85730; 87081; 93458; C1894; 36415

== ENCOUNTER → 2020-05-04 | Outpatient (CLI) | payer BC ==
[~2020-05-04] MED LIST changes: +ASPI-1238 PO; +ATOR40TA PO; +CATHETER FLUSH 10 ML SYR IV PRN; -HEParin (CATH LAB) 2,000 ML IV ONE; -LIDOCAINE 1% INJ 20 ML 20 ML VIAL ONE; -NS IV 1000 ML 1,000 ML IV SCH; -NS IV 1000 ML 1,000 ML ONE
--- NOTE | 2020-05-08 11:12 | STRESS TEST ---
DATE OF SERVICE: RESTING AND REDISTRIBUTION STUDY REFERRING PHYSICIAN: Dr. Drew Sparks. In summary, the patient was injected with 3.22 mCi of thallium-201 and the resting images were acquired. Then, returned 24 hours later and redistribution injection of 1.03 mCi of thallium-201 was given and the images were acquired. Resting and redistribution study were reviewed and compared. There is a total infarction of the apex, mid to apical anterior wall and inferoapical segment with no viability. CONCLUSION: Total infarction of the mid to apical anterior wall, apex and inferoapical segment with no viability. Job ID: [id number] DocumentID: [id number] Dictated Date: 05/08/2020 08:33:52 Editorial Assistant Date: 05/08/2020 11:11:38 Dictated By: JULIA CHEW MD
== END ==
LOC: CARD 09:00
PROVIDERS: ATTEND Physician Assistant
DX: I25.10 Atherosclerotic heart disease of native coronary artery without angina pectoris (principal)
CPT/HCPCS: 78452; 93017; A9505

== ENCOUNTER 2020-05-29 08:53 | Outpatient (RCR) | payer BC ==
[2020-05-01 09:44] LABS: BASOPHILS % (AUTO) 1 % (0-10); EOSINOPHILS # (AUTO) 0.1 10^3/uL (0.0-0.3); EOSINOPHILS % (AUTO) 1 % (0-10); HEMATOCRIT 46 % (35-52); HEMOGLOBIN 14.8 g/dL (11.5-16.0); LYMPHOCYTES # (AUTO) 1.7 10^3/uL (1.0-4.0); LYMPHOCYTES % (AUTO) 31 % (12-44); MEAN CORPUSCULAR HEMOGLOBIN 27 pg (25-34); MEAN CORPUSCULAR HGB CONC 33 g/dL (32-36); MEAN CORPUSCULAR VOLUME 84 fL (80-99); MEAN PLATELET VOLUME 10.3 fL (9.0-12.2); MONOCYTES # (AUTO) 0.3 10^3/uL (0.0-1.0); MONOCYTES % (AUTO) 5 % (0-12); NEUTROPHILS # (AUTO) 3.3 10^3/uL (1.8-7.8); NEUTROPHILS % (AUTO) 61 % (42-75); PLATELET COUNT 147 10^3/uL (130-400); WHITE BLOOD COUNT 5.4 10^3/uL (4.3-11.0)
[2020-05-01 10:06] LABS: ALANINE AMINOTRANSFERASE 14 U/L (0-55); ALKALINE PHOSPHATASE 162 U/L (40-136); BILIRUBIN,TOTAL 1.1 MG/DL (0.1-1.0); BUN/CREATININE RATIO 21; CALCIUM 9.4 MG/DL (8.5-10.1); CARBON DIOXIDE 26 MMOL/L (21-32); CHLORIDE 103 MMOL/L (98-107); CREATININE SERUM 0.81 MG/DL (0.60-1.30); GFR ESTIMATED > 60; GLUCOSE 114 MG/DL (70-105); POTASSIUM 3.6 MMOL/L (3.6-5.0); SODIUM 140 MMOL/L (135-145); TOTAL PROTEIN 7.3 GM/DL (6.4-8.2)
[~2020-05-29 08:53] MED LIST changes: -CATHETER FLUSH 10 ML SYR IV PRN; +FULVESTRANT 250 MG/5 ML SYR (CANCER CENTER) IM SCH
[2020-05-29 09:27] LABS: BASOPHILS % (AUTO) 1 % (0-10); EOSINOPHILS # (AUTO) 0.1 10^3/uL (0.0-0.3); EOSINOPHILS % (AUTO) 1 % (0-10); HEMATOCRIT 46 % (35-52); HEMOGLOBIN 14.6 g/dL (11.5-16.0); LYMPHOCYTES # (AUTO) 1.1 10^3/uL (1.0-4.0); LYMPHOCYTES % (AUTO) 23 % (12-44); MEAN CORPUSCULAR HEMOGLOBIN 27 pg (25-34); MEAN CORPUSCULAR HGB CONC 32 g/dL (32-36); MEAN CORPUSCULAR VOLUME 85 fL (80-99); MONOCYTES # (AUTO) 0.3 10^3/uL (0.0-1.0); MONOCYTES % (AUTO) 6 % (0-12); NEUTROPHILS # (AUTO) 3.3 10^3/uL (1.8-7.8); NEUTROPHILS % (AUTO) 69 % (42-75); PLATELET COUNT 129 10^3/uL (130-400); WHITE BLOOD COUNT 4.8 10^3/uL (4.3-11.0)
[2020-05-29 09:48] LABS: ALANINE AMINOTRANSFERASE 14 U/L (0-55); ALBUMIN 4.1 GM/DL (3.2-4.5); ALKALINE PHOSPHATASE 166 U/L (40-136); BILIRUBIN,TOTAL 1.2 MG/DL (0.1-1.0); BUN/CREATININE RATIO 24; CALCIUM 9.4 MG/DL (8.5-10.1); CARBON DIOXIDE 29 MMOL/L (21-32); CHLORIDE 104 MMOL/L (98-107); CREATININE SERUM 0.91 MG/DL (0.60-1.30); GFR ESTIMATED > 60; GLUCOSE 134 MG/DL (70-105); POTASSIUM 3.9 MMOL/L (3.6-5.0); SODIUM 139 MMOL/L (135-145); TOTAL PROTEIN 7.4 GM/DL (6.4-8.2)
== END 2020-06-12 16:31 | disposition home or self-care (01) ==
LOC: ONC 08:53
PROVIDERS: ATTEND Internal Medicine Hematology & Oncology
DX: Z51.11 Encounter for antineoplastic chemotherapy (principal); C50.412 Malignant neoplasm of upper-outer quadrant of left female breast; C79.51 Secondary malignant neoplasm of bone; M85.88 Other specified disorders of bone density and structure, other site; I10 Essential (primary) hypertension; Z85.43 Personal history of malignant neoplasm of ovary; Z90.710 Acquired absence of both cervix and uterus; Z92.3 Personal history of irradiation; Z79.899 Other long term (current) drug therapy; Z92.21 Personal history of antineoplastic chemotherapy; Z90.12 Acquired absence of left breast and nipple
CPT/HCPCS: 36591; 80053; 85025; 86300; 96402; 99213

== ENCOUNTER → 2020-05-31 | Outpatient (CLI) | payer BC ==
[~2020-05-31] MED LIST changes: -FULVESTRANT 250 MG/5 ML SYR (CANCER CENTER) IM SCH
--- NOTE | 2020-05-31 12:15 | Diagnostic Imaging Report ---
PROCEDURE: CT chest with contrast, CT abdomen and pelvis with and without contrast. TECHNIQUE: Pre and post intravenous contrast axial imaging of the abdomen and pelvis and post contrast axial imaging of the chest were performed. Auto Exposure Controls were utilized during the CT exam to meet ALARA standards for radiation dose reduction. INDICATION: Breast neoplasm, follow-up. COMPARISON: Correlation is made with prior CT from 03/09/2020. FINDINGS: CT chest: Right chest wall port has tip in the SVC. Multiple surgical clips in left axilla are noted. There is no evidence of right or left axillary lymphadenopathy. No mediastinal or hilar lymphadenopathy is detected. No pericardial or pleural fluid is detected. Previously noted 5 mm nodule in right upper lobe posteriorly is barely visible on today's study. Tiny nodule more inferiorly in the right lower lobe measures 3 mm, series 5 image 61. This is smaller than prior exam. The groundglass nodule adjacent to the major fissure in the superior segment of the right lower lobe is also barely visible on today's study. Residual density measures approximately 8 mm, image 48 series 5. Previously noted centrally cystic nodule in left upper lobe is no longer centrally cystic. Residual density at this location measures 4 mm compared with 5 mm on prior, image 37 series 5. Subpleural nodule in left upper lobe is stable at 5 mm, image 69 series 5. Centrally cystic nodule in the left lower lobe on prior exam is no longer present. No new nodule is detected. Mixed lytic and sclerotic lesions of the thoracic spine appears stable. A slightly expansile lytic lesion involving the left seventh posterolateral rib has increased. Somewhat destructive portion of the lateral left seventh rib is again noted similar to prior. Sclerotic lesion of the right fourth lateral rib has increased in size. IMPRESSION: 1. Skeletal metastases, slightly increased particularly involving the ribs when compared with prior exam. 2. No evidence of thoracic lymphadenopathy. 3. Overall improvement in bilateral pulmonary nodules when compared with prior study from 03/09/2020. CT abdomen and pelvis: No discrete liver mass is detected. There is a large stone within the gallbladder. No biliary ductal dilatation is seen. Pancreas and spleen are unremarkable. No adrenal mass is identified. Kidneys are unremarkable. Aorta is calcified but nonaneurysmal. No central retroperitoneal or mesenteric lymphadenopathy is identified. There is a midline ventral hernia containing bowel loops just below the level of umbilicus. In addition, there is an umbilical hernia containing small bowel loops. Just above this level, there is a right para midline ventral hernia containing a knuckle of small bowel. No bowel wall thickening or evidence of strangulation or bowel obstruction is seen. There is no free fluid or fluid collection in the abdomen. There are surgical clips in left lower quadrant. Bladder is unremarkable. No pelvic lymphadenopathy is seen. Sclerotic lesion in right iliac bone at the level of the SI joint is noted. IMPRESSION: 1. Overall stable CT abdomen and pelvis since exam from 03/09/2020. No abdominal or pelvic lymphadenopathy or metastatic disease is seen within the abdomen or pelvis. There is a sclerotic lesion of the right iliac bone, stable. 2. Midline and right para-midline ventral hernias, as described. These are similar to prior exam. Dictated by: Dictated on workstation # [id number]
--- NOTE | 2020-05-31 14:43 | Diagnostic Imaging Report ---
INDICATION: Breast carcinoma. TECHNIQUE: Patient was administered 26.8 mCi technetium 99m MDP intravenously and whole body imaging was performed after a three-hour delay. COMPARISON: Comparison is made with whole body bone scan from 03/09/2020. FINDINGS: Uptake of activity by the axial and appendicular skeleton is noted. There is uptake by the kidneys with excretion into the urinary bladder. There is uptake involving multiple left-sided lateral ribs, similar to prior exam. Vague uptake involving anterior right approximately third rib is seen, similar to prior exam. There is uptake involving the left shoulder, similar to prior exam. Uptake at approximately T12 is again noted. No new foci of tracer accumulation are seen. IMPRESSION: Multiple abnormal regions of uptake, suggestive of osseous metastatic disease. Overall appearance is very similar to examination from 03/09/2020. Dictated by: Dictated on workstation # [id number]
== END ==
LOC: CARD 10:20
PROVIDERS: ATTEND Internal Medicine Hematology & Oncology
DX: C50.412 Malignant neoplasm of upper-outer quadrant of left female breast (principal); M89.9 Disorder of bone, unspecified; K43.9 Ventral hernia without obstruction or gangrene
CPT/HCPCS: 71260; 74178; 78306; A9503

== ENCOUNTER → 2020-06-12 | Outpatient (CLI) | payer BC ==
[2020-05-31] MEDS: CATHETER FLUSH 10 ML SYR IV PRN (11:14)
[~2020-06-12] MED LIST changes: +CATHETER FLUSH 10 ML SYR IV PRN; +HOLD METFORMIN - RECEIVED CONTRAST 20 ML VIAL IV SCH; +IOHEXOL 350 MG/ML 100 ML (OMNIPAQUE 350) VIAL IV ONE; +NS 100 ML (IVPB) BAG IV ONE
[2020-06-12] MEDS: CATHETER FLUSH 10 ML SYR IV PRN (08:15)
--- NOTE | 2020-06-12 08:46 | Diagnostic Imaging Report ---
PROCEDURE: CT angiography of the head and CT angiography of the neck with and without contrast. TECHNIQUE: Contiguous noncontrast images were obtained from the skull base through the vertex. After intravenous contrast administration, helical CT angiography of the neck was performed. Source data was reformatted into 3D MIP projections. Delayed post contrast acquisition was also obtained. Auto Exposure Controls were utilized during the CT exam to meet ALARA standards for radiation dose reduction. INDICATION: Occlusion and stenosis of the carotid artery. COMPARISON: CT of the chest dated 05/31/2020. FINDINGS: No intracranial hemorrhage. No intracranial mass, mass effect, midline shift, herniation, hydrocephalus, or extra-axial fluid collection. Periventricular and subcortical white matter hypodensities are present, most consistent with mild background chronic small vessel white matter ischemic disease. No definite CT evidence of an acute ischemic infarction. The orbits are unremarkable. Mucous retention cyst within the right sphenoid sinus. Mild mucosal thickening and fluid within the left ethmoid air cells. The paranasal sinuses otherwise appear clear. The calvarium appears intact. No enhancing intracranial mass lesion. No suspicious intracranial vascular malformation. The parapharyngeal fat is symmetric and well-maintained. Muscles of mastication are unremarkable. Small calcification within the left submandibular gland without significant ductal dilatation. The salivary glands are otherwise unremarkable. Multiple tonsilloliths are present. The thyroid gland is unremarkable. An enlarged 1.7 x 1.1 cm lymph node is noted near the left mandibular angle. The trachea is patent. No pneumothorax. A 6 mm pulmonary nodule within the left upper lobe is present, appearing slightly decreased in size since the prior examination, with the cavitary component in particular having decreased since the prior exam. A 2 vessel aortic arch is present. The origins of the great vessels off of the aorta are widely patent. Moderate calcifications are identified within the bilateral carotid bulbs, right greater than left. 40% stenosis of the most proximal aspect of the right internal carotid artery is noted based upon NASCET criteria. Moderate stenosis involving the horizontal portion of the intracranial portion of the right internal carotid artery is noted. 50% stenosis is noted involving the most proximal aspect of the left internal carotid artery. Moderate stenosis involving the horizontal portion of the intracranial aspect of the left internal carotid artery. High-grade stenosis involving the origin of the right vertebral artery. Mild stenosis involving the intracranial portion of the right vertebral artery. Mild stenosis involving the intracranial portion of the left vertebral artery. Scattered osseous degenerative changes without acute osseous abnormality. IMPRESSION: No acute intracranial abnormality. High-grade stenosis involving the origin of the right vertebral artery with mild stenosis involving the intracranial portions of the bilateral vertebral arteries. 50% stenosis involving the most proximal aspect of the left internal carotid artery based upon NASCET criteria. 40% stenosis involving the proximal right internal carotid artery based upon NASCET criteria. Left-sided pulmonary nodule which has minimally decreased in size since the prior CT of the chest. Mild left cervical adenopathy. Dictated by: Dictated on workstation # [id number]
== END ==
LOC: RAD 05-31 10:01
PROVIDERS: ATTEND Physician Assistant
DX: I25.10 Atherosclerotic heart disease of native coronary artery without angina pectoris (principal); I65.29 Occlusion and stenosis of unspecified carotid artery; R91.1 Solitary pulmonary nodule; R59.0 Localized enlarged lymph nodes
CPT/HCPCS: 70496; 70498; 93306

== ENCOUNTER → 2020-09-14 | Outpatient (CLI) | payer BC ==
--- NOTE | 2020-09-14 11:12 | Diagnostic Imaging Report ---
EXAMINATION: CT Chest with intravenous contrast, CT Abdomen and Pelvis without and with intravenous contrast. TECHNIQUE: Pre and post intravenous contrast axial imaging of the abdomen and pelvis and post contrast axial imaging of the chest were performed. All CT scans use one or more of the following dose optimizing techniques: automated exposure control, MA and/or KvP adjustment based on a patient size and exam type, or iterative reconstruction. HISTORY: MALIGNANT NEOPLASM OF UPPER QUAD OF BREAST COMPARISON: CT chest, abdomen, and pelvis 05/31/2020 FINDINGS: Thyroid: The thyroid is normal. Mediastinum: Heart size is normal without significant pericardial effusion. Calcifications of the aorta and coronary vessels. Thoracic aorta is normal in caliber. No suspicious lymphadenopathy. Lungs and airways: The lungs are clear without consolidation, pleural effusion, or pneumothorax. Stable bilateral pulmonary nodules measuring up to 0.4 cm. The superior left upper lobe pulmonary nodule seen on prior CT has a more cystic appearance on today's exam (series 5, image 56) and measures 0.4 cm. The airways are normal. Solid organs: The liver is normal without focal lesion. There is a large 3.1 cm stone within the gallbladder. There is no biliary ductal dilation. Pancreas is normal. Spleen is normal. Adrenal glands are normal. The kidneys are normal without hydronephrosis. Bowel: The stomach and small bowel are normal without obstruction. There are a few scattered colonic diverticula. No findings of acute appendicitis. A few loops of bowel are present within 2 right paracentral abdominal wall hernias without obstruction. There is a Bruno type hernia of the small bowel on the right paracentral abdominal wall. Peritoneum: There is no intraperitoneal free fluid or free air. No suspicious lymphadenopathy. Vasculature: Calcification of the aorta without aneurysm. Musculoskeletal: Stable mixed lytic and sclerotic osseous metastases. Right-sided Vchv-[id number]-Iatinwmo is present. Ventral abdominal wall hernias as detailed above. Pelvis: The uterus is surgically absent. No adnexal mass. The urinary bladder is normal. IMPRESSION: 1. A more cystic appearance of a superior left lower lobe pulmonary nodule compared to 05/31/2020. Additional bilateral pulmonary nodules are unchanged. 2. Stable osseous metastatic disease. 3. No new findings of metastatic disease. 4. Multiple ventral abdominal wall hernias containing loops of bowel without obstruction. 5. Cholelithiasis including a 3.1 cm stone. Dictated by: Dictated on workstation # [id number]
--- NOTE | 2020-09-14 15:03 | Diagnostic Imaging Report ---
INDICATION: Breast carcinoma. TECHNIQUE: Patient was administered 26.5 mCi technetium 99m MDP intravenously and whole-body imaging was performed after a three-hour delay. COMPARISON: Correlation is made with prior whole body bone scan from 05/31/2020. Normal uptake of activity by the axial and appendicular skeleton is noted. Uptake along the lateral left ribs as well as right 3rd rib is seen. There is some uptake involving a lower right anterior rib which appears new since prior study. The uptake about the left shoulder is similar to prior. There is uptake at T12 as well as approximately T5. IMPRESSION: Multiple areas of uptake similar to exam from 05/31/2020. There is a new area of mild uptake involving a lower anterior rib on the right. Dictated by: Dictated on workstation # [id number]
== END ==
LOC: CARD 09:39
PROVIDERS: ATTEND Internal Medicine Hematology & Oncology
DX: C50.412 Malignant neoplasm of upper-outer quadrant of left female breast (principal); C79.51 Secondary malignant neoplasm of bone; I42.2 Other hypertrophic cardiomyopathy; K43.9 Ventral hernia without obstruction or gangrene; K80.20 Calculus of gallbladder without cholecystitis without obstruction; R91.8 Other nonspecific abnormal finding of lung field
CPT/HCPCS: 71260; 74178; 78306; 93306; A9503

== ENCOUNTER → 2020-09-14 | Outpatient (CLI) | payer BC ==
[~2020-09-14] MED LIST changes: -CATHETER FLUSH 10 ML SYR IV PRN; -HOLD METFORMIN - RECEIVED CONTRAST 20 ML VIAL IV SCH; -IOHEXOL 350 MG/ML 100 ML (OMNIPAQUE 350) VIAL IV ONE; -NS 100 ML (IVPB) BAG IV ONE
[2020-09-14 09:42] LABS: ALANINE AMINOTRANSFERASE 14 U/L (0-55); ALBUMIN 4.3 GM/DL (3.2-4.5); ALKALINE PHOSPHATASE 151 U/L (40-136); BILIRUBIN,TOTAL 1.3 MG/DL (0.1-1.0); BUN/CREATININE RATIO 16; CALCIUM 9.5 MG/DL (8.5-10.1); CARBON DIOXIDE 25 MMOL/L (21-32); CHLORIDE 104 MMOL/L (98-107); CHOLESTEROL 176 MG/DL (< 200); CREATININE SERUM 0.79 MG/DL (0.60-1.30); GFR ESTIMATED > 60; GLUCOSE 123 MG/DL (70-105); HDL CHOLESTEROL 56 MG/DL (40-60); POTASSIUM 3.5 MMOL/L (3.6-5.0); SODIUM 140 MMOL/L (135-145); TOTAL PROTEIN 7.3 GM/DL (6.4-8.2); TRIGLYCERIDES 198 MG/DL (<150); VLDL CHOLESTEROL 40 MG/DL (5-40)
== END ==
LOC: LAB 08:55
PROVIDERS: ATTEND Physician Assistant
DX: E78.2 Mixed hyperlipidemia (principal)
CPT/HCPCS: 36415; 80053; 80061

== ENCOUNTER 2020-09-18 08:50 | Outpatient (RCR) | payer BC ==
[2020-06-26 09:07] LABS: BASOPHILS % (AUTO) 1 % (0-10); EOSINOPHILS # (AUTO) 0.1 10^3/uL (0.0-0.3); EOSINOPHILS % (AUTO) 2 % (0-10); HEMATOCRIT 46 % (35-52); HEMOGLOBIN 15.1 g/dL (11.5-16.0); LYMPHOCYTES # (AUTO) 1.6 X 10^3 (1.0-4.0); LYMPHOCYTES % (AUTO) 29 % (12-44); MEAN CORPUSCULAR HEMOGLOBIN 28 pg (25-34); MEAN CORPUSCULAR HGB CONC 33 g/dL (32-36); MEAN CORPUSCULAR VOLUME 84 fL (80-99); MEAN PLATELET VOLUME 9.6 fL (9.0-12.2); MONOCYTES # (AUTO) 0.3 X 10^3 (0.0-1.0); MONOCYTES % (AUTO) 6 % (0-12); NEUTROPHILS # (AUTO) 3.5 X 10^3 (1.8-7.8); NEUTROPHILS % (AUTO) 62 % (42-75); PLATELET COUNT 124 10^3/uL (130-400); WHITE BLOOD COUNT 5.6 10^3/uL (4.3-11.0)
[2020-06-26 09:29] LABS: ALANINE AMINOTRANSFERASE 11 U/L (0-55); ALBUMIN 4.3 GM/DL (3.2-4.5); ALKALINE PHOSPHATASE 160 U/L (40-136); BILIRUBIN,TOTAL 1.1 MG/DL (0.1-1.0); BUN/CREATININE RATIO 20; CALCIUM 9.6 MG/DL (8.5-10.1); CARBON DIOXIDE 25 MMOL/L (21-32); CHLORIDE 104 MMOL/L (98-107); GFR ESTIMATED > 60; GLUCOSE 118 MG/DL (70-105); POTASSIUM 3.7 MMOL/L (3.6-5.0); SODIUM 141 MMOL/L (135-145); TOTAL PROTEIN 7.5 GM/DL (6.4-8.2)
[2020-07-24 09:09] LABS: EOSINOPHILS # (AUTO) 0.1 10^3/uL (0.0-0.3); HEMOGLOBIN 14.7 g/dL (11.5-16.0)
[2020-07-24 09:11] LABS: BASOPHILS % (AUTO) 1 % (0-10); EOSINOPHILS % (AUTO) 2 % (0-10); HEMATOCRIT 44 % (35-52); LYMPHOCYTES # (AUTO) 1.4 10^3/uL (1.0-4.0); LYMPHOCYTES % (AUTO) 28 % (12-44); MEAN CORPUSCULAR HEMOGLOBIN 28 pg (25-34); MEAN CORPUSCULAR HGB CONC 33 g/dL (32-36); MEAN CORPUSCULAR VOLUME 85 fL (80-99); MEAN PLATELET VOLUME 10.1 fL (9.0-12.2); MONOCYTES # (AUTO) 0.4 10^3/uL (0.0-1.0); MONOCYTES % (AUTO) 7 % (0-12); NEUTROPHILS # (AUTO) 3.2 10^3/uL (1.8-7.8); NEUTROPHILS % (AUTO) 62 % (42-75); PLATELET COUNT 120 10^3/uL (130-400); WHITE BLOOD COUNT 5.1 10^3/uL (4.3-11.0)
[2020-07-24 09:33] LABS: ALANINE AMINOTRANSFERASE 12 U/L (0-55); ALBUMIN 4.2 GM/DL (3.2-4.5); ALKALINE PHOSPHATASE 170 U/L (40-136); BILIRUBIN,TOTAL 1.3 MG/DL (0.1-1.0); BUN/CREATININE RATIO 21; CALCIUM 9.5 MG/DL (8.5-10.1); CARBON DIOXIDE 26 MMOL/L (21-32); CHLORIDE 102 MMOL/L (98-107); CREATININE SERUM 0.86 MG/DL (0.60-1.30); GFR ESTIMATED > 60; GLUCOSE 144 MG/DL (70-105); POTASSIUM 3.8 MMOL/L (3.6-5.0); SODIUM 141 MMOL/L (135-145); TOTAL PROTEIN 7.3 GM/DL (6.4-8.2)
[2020-09-14 09:04] LABS: BASOPHILS # (AUTO) 0.1 10^3/uL (0.0-0.1)
[2020-09-14 09:06] LABS: BASOPHILS % (AUTO) 1 % (0-10); EOSINOPHILS # (AUTO) 0.1 10^3/uL (0.0-0.3); EOSINOPHILS % (AUTO) 2 % (0-10); HEMATOCRIT 46 % (35-52); LYMPHOCYTES # (AUTO) 1.4 10^3/uL (1.0-4.0); LYMPHOCYTES % (AUTO) 28 % (12-44); MEAN CORPUSCULAR HEMOGLOBIN 28 pg (25-34); MEAN CORPUSCULAR HGB CONC 33 g/dL (32-36); MEAN CORPUSCULAR VOLUME 87 fL (80-99); MEAN PLATELET VOLUME 10.3 fL (9.0-12.2); MONOCYTES # (AUTO) 0.3 10^3/uL (0.0-1.0); MONOCYTES % (AUTO) 5 % (0-12); NEUTROPHILS # (AUTO) 3.3 10^3/uL (1.8-7.8); NEUTROPHILS % (AUTO) 65 % (42-75); PLATELET COUNT 125 10^3/uL (130-400); WHITE BLOOD COUNT 5.2 10^3/uL (4.3-11.0)
[2020-09-14 09:27] LABS: ALANINE AMINOTRANSFERASE 14 U/L (0-55); ALBUMIN 4.3 GM/DL (3.2-4.5); ALKALINE PHOSPHATASE 150 U/L (40-136); BILIRUBIN,TOTAL 1.3 MG/DL (0.1-1.0); BUN/CREATININE RATIO 16; CALCIUM 9.4 MG/DL (8.5-10.1); CARBON DIOXIDE 24 MMOL/L (21-32); CHLORIDE 103 MMOL/L (98-107); GFR ESTIMATED > 60; GLUCOSE 124 MG/DL (70-105); POTASSIUM 3.5 MMOL/L (3.6-5.0); SODIUM 140 MMOL/L (135-145); TOTAL PROTEIN 7.2 GM/DL (6.4-8.2)
[~2020-09-18 08:50] MED LIST changes: +ESTROGENS CONJ IV 25 MG/5 ML (PREMARIN) VIAL ONE; +FULVESTRANT 250 MG/5 ML SYR (CANCER CENTER) IM SCH
== END 2020-09-24 | disposition home or self-care (01) ==
LOC: ONC 08:50
PROVIDERS: ATTEND Internal Medicine Hematology & Oncology
DX: Z51.11 Encounter for antineoplastic chemotherapy (principal); C50.412 Malignant neoplasm of upper-outer quadrant of left female breast; C79.51 Secondary malignant neoplasm of bone; M85.88 Other specified disorders of bone density and structure, other site; I10 Essential (primary) hypertension; Z85.43 Personal history of malignant neoplasm of ovary; Z90.710 Acquired absence of both cervix and uterus; Z92.3 Personal history of irradiation; Z79.899 Other long term (current) drug therapy; Z92.21 Personal history of antineoplastic chemotherapy; Z90.12 Acquired absence of left breast and nipple; Z72.0 Tobacco use
CPT/HCPCS: 80053; 85025; 86300; 96402; G0463; 99213

== ENCOUNTER 2021-01-01 08:39 | Outpatient (RCR) | payer BC ==
[2020-10-11 09:08] LABS: BASOPHILS # (AUTO) 0.1 10^3/uL (0.0-0.1); HEMATOCRIT 43 % (35-52); HEMOGLOBIN 14.2 g/dL (11.5-16.0); MEAN CORPUSCULAR HEMOGLOBIN 28 pg (25-34); MEAN CORPUSCULAR HGB CONC 33 g/dL (32-36); MEAN CORPUSCULAR VOLUME 85 fL (80-99); MEAN PLATELET VOLUME 10.5 fL (9.0-12.2); MONOCYTES # (AUTO) 0.3 10^3/uL (0.0-1.0)
[2020-10-11 09:10] LABS: BASOPHILS % (AUTO) 1 % (0-10); EOSINOPHILS # (AUTO) 0.1 10^3/uL (0.0-0.3); EOSINOPHILS % (AUTO) 2 % (0-10); LYMPHOCYTES # (AUTO) 1.4 10^3/uL (1.0-4.0); LYMPHOCYTES % (AUTO) 24 % (12-44); MONOCYTES % (AUTO) 6 % (0-12); NEUTROPHILS # (AUTO) 3.9 10^3/uL (1.8-7.8); NEUTROPHILS % (AUTO) 67 % (42-75); PLATELET COUNT 125 10^3/uL (130-400); WHITE BLOOD COUNT 5.8 10^3/uL (4.3-11.0)
[2020-10-11 09:30] LABS: ALANINE AMINOTRANSFERASE 13 U/L (0-55); ALKALINE PHOSPHATASE 132 U/L (40-136); BILIRUBIN,TOTAL 1.1 MG/DL (0.1-1.0); BUN/CREATININE RATIO 17; CARBON DIOXIDE 26 MMOL/L (21-32); CHLORIDE 101 MMOL/L (98-107); GFR ESTIMATED > 60; GLUCOSE 219 MG/DL (70-105); POTASSIUM 3.7 MMOL/L (3.6-5.0); SODIUM 138 MMOL/L (135-145); TOTAL PROTEIN 7.1 GM/DL (6.4-8.2)
[2020-11-06 09:19] LABS: BASOPHILS # (AUTO) 0.1 10^3/uL (0.0-0.1); BASOPHILS % (AUTO) 1 % (0-10); EOSINOPHILS # (AUTO) 0.1 10^3/uL (0.0-0.3); EOSINOPHILS % (AUTO) 1 % (0-10); HEMATOCRIT 43 % (35-52); HEMOGLOBIN 14.4 g/dL (11.5-16.0); LYMPHOCYTES # (AUTO) 1.6 X 10^3 (1.0-4.0); LYMPHOCYTES % (AUTO) 27 % (12-44); MEAN CORPUSCULAR HEMOGLOBIN 29 pg (25-34); MEAN CORPUSCULAR HGB CONC 33 g/dL (32-36); MEAN CORPUSCULAR VOLUME 85 fL (80-99); MEAN PLATELET VOLUME 10.1 fL (9.0-12.2); MONOCYTES # (AUTO) 0.3 X 10^3 (0.0-1.0); MONOCYTES % (AUTO) 6 % (0-12); NEUTROPHILS # (AUTO) 3.9 X 10^3 (1.8-7.8); NEUTROPHILS % (AUTO) 65 % (42-75); PLATELET COUNT 144 10^3/uL (130-400)
[2020-11-06 09:37] LABS: BUN/CREATININE RATIO 22; CALCIUM 9.8 MG/DL (8.5-10.1); CARBON DIOXIDE 26 MMOL/L (21-32); CHLORIDE 104 MMOL/L (98-107); CREATININE SERUM 0.89 MG/DL (0.60-1.30); GFR ESTIMATED > 60; GLUCOSE 114 MG/DL (70-105); POTASSIUM 3.9 MMOL/L (3.6-5.0); SODIUM 141 MMOL/L (135-145)
[2020-11-13 08:54] LABS: BASOPHILS # (AUTO) 0.1 10^3/uL (0.0-0.1); BASOPHILS % (AUTO) 1 % (0-10); EOSINOPHILS # (AUTO) 0.1 10^3/uL (0.0-0.3); EOSINOPHILS % (AUTO) 2 % (0-10); HEMATOCRIT 44 % (35-52); HEMOGLOBIN 14.6 g/dL (11.5-16.0); LYMPHOCYTES # (AUTO) 1.7 10^3/uL (1.0-4.0); LYMPHOCYTES % (AUTO) 30 % (12-44); MEAN CORPUSCULAR HEMOGLOBIN 29 pg (25-34); MEAN CORPUSCULAR HGB CONC 33 g/dL (32-36); MEAN CORPUSCULAR VOLUME 86 fL (80-99); MEAN PLATELET VOLUME 9.3 fL (9.0-12.2); MONOCYTES # (AUTO) 0.4 10^3/uL (0.0-1.0); MONOCYTES % (AUTO) 7 % (0-12); NEUTROPHILS # (AUTO) 3.5 10^3/uL (1.8-7.8); NEUTROPHILS % (AUTO) 60 % (42-75); PLATELET COUNT 147 10^3/uL (130-400); WHITE BLOOD COUNT 5.8 10^3/uL (4.3-11.0)
[2020-11-13 09:12] LABS: BUN/CREATININE RATIO 17; CALCIUM 9.8 MG/DL (8.5-10.1); CARBON DIOXIDE 29 MMOL/L (21-32); CHLORIDE 103 MMOL/L (98-107); CREATININE SERUM 0.87 MG/DL (0.60-1.30); GFR ESTIMATED > 60; GLUCOSE 126 MG/DL (70-105); POTASSIUM 3.7 MMOL/L (3.6-5.0); SODIUM 143 MMOL/L (135-145)
[2020-11-20 10:33] LABS: HEMOGLOBIN 14.1 g/dL (11.5-16.0)
[2020-11-20 10:35] LABS: BASOPHILS % (AUTO) 1 % (0-10); EOSINOPHILS # (AUTO) 0.1 10^3/uL (0.0-0.3); EOSINOPHILS % (AUTO) 2 % (0-10); HEMATOCRIT 42 % (35-52); LYMPHOCYTES # (AUTO) 1.6 10^3/uL (1.0-4.0); LYMPHOCYTES % (AUTO) 31 % (12-44); MEAN CORPUSCULAR HEMOGLOBIN 29 pg (25-34); MEAN CORPUSCULAR HGB CONC 34 g/dL (32-36); MEAN CORPUSCULAR VOLUME 86 fL (80-99); MEAN PLATELET VOLUME 9.8 fL (9.0-12.2); MONOCYTES # (AUTO) 0.3 10^3/uL (0.0-1.0); MONOCYTES % (AUTO) 5 % (0-12); NEUTROPHILS # (AUTO) 3.2 10^3/uL (1.8-7.8); NEUTROPHILS % (AUTO) 61 % (42-75); PLATELET COUNT 123 10^3/uL (130-400); WHITE BLOOD COUNT 5.2 10^3/uL (4.3-11.0)
[2020-11-20 10:53] LABS: ALANINE AMINOTRANSFERASE 12 U/L (0-55); ALKALINE PHOSPHATASE 143 U/L (40-136); BILIRUBIN,TOTAL 1.2 MG/DL (0.1-1.0); BUN/CREATININE RATIO 23; CALCIUM 9.5 MG/DL (8.5-10.1); CARBON DIOXIDE 28 MMOL/L (21-32); CHLORIDE 104 MMOL/L (98-107); CREATININE SERUM 0.79 MG/DL (0.60-1.30); GFR ESTIMATED > 60; GLUCOSE 114 MG/DL (70-105); SODIUM 140 MMOL/L (135-145); TOTAL PROTEIN 6.9 GM/DL (6.4-8.2)
[2020-11-30 09:11] LABS: BASOPHILS # (AUTO) 0.1 10^3/uL (0.0-0.1); BASOPHILS % (AUTO) 1 % (0-10); EOSINOPHILS # (AUTO) 0.1 10^3/uL (0.0-0.3); EOSINOPHILS % (AUTO) 1 % (0-10); HEMATOCRIT 44 % (35-52); HEMOGLOBIN 14.7 g/dL (11.5-16.0); LYMPHOCYTES # (AUTO) 1.9 10^3/uL (1.0-4.0); LYMPHOCYTES % (AUTO) 29 % (12-44); MEAN CORPUSCULAR HEMOGLOBIN 29 pg (25-34); MEAN CORPUSCULAR HGB CONC 33 g/dL (32-36); MEAN CORPUSCULAR VOLUME 88 fL (80-99); MEAN PLATELET VOLUME 9.6 fL (9.0-12.2); MONOCYTES # (AUTO) 0.3 10^3/uL (0.0-1.0); MONOCYTES % (AUTO) 5 % (0-12); NEUTROPHILS # (AUTO) 4.2 10^3/uL (1.8-7.8); NEUTROPHILS % (AUTO) 64 % (42-75); PLATELET COUNT 126 10^3/uL (130-400); WHITE BLOOD COUNT 6.6 10^3/uL (4.3-11.0)
[2020-11-30 09:35] LABS: ALANINE AMINOTRANSFERASE 14 U/L (0-55); ALBUMIN 4.3 GM/DL (3.2-4.5); ALKALINE PHOSPHATASE 131 U/L (40-136); BUN/CREATININE RATIO 21; CALCIUM 9.8 MG/DL (8.5-10.1); CARBON DIOXIDE 30 MMOL/L (21-32); CHLORIDE 101 MMOL/L (98-107); CREATININE SERUM 0.85 MG/DL (0.60-1.30); GFR ESTIMATED > 60; GLUCOSE 108 MG/DL (70-105); SODIUM 140 MMOL/L (135-145)
[2020-12-12 09:06] LABS: BASOPHILS % (AUTO) 1 % (0-10); EOSINOPHILS # (AUTO) 0.1 10^3/uL (0.0-0.3); EOSINOPHILS % (AUTO) 2 % (0-10); HEMATOCRIT 44 % (35-52); HEMOGLOBIN 14.6 g/dL (11.5-16.0); LYMPHOCYTES # (AUTO) 1.7 10^3/uL (1.0-4.0); LYMPHOCYTES % (AUTO) 32 % (12-44); MEAN CORPUSCULAR HEMOGLOBIN 29 pg (25-34); MEAN CORPUSCULAR HGB CONC 33 g/dL (32-36); MEAN CORPUSCULAR VOLUME 89 fL (80-99); MEAN PLATELET VOLUME 10.5 fL (9.0-12.2); MONOCYTES # (AUTO) 0.3 10^3/uL (0.0-1.0); MONOCYTES % (AUTO) 6 % (0-12); NEUTROPHILS # (AUTO) 3.3 10^3/uL (1.8-7.8); NEUTROPHILS % (AUTO) 60 % (42-75); PLATELET COUNT 119 10^3/uL (130-400); WHITE BLOOD COUNT 5.5 10^3/uL (4.3-11.0)
[2020-12-12 09:33] LABS: ALANINE AMINOTRANSFERASE 13 U/L (0-55); ALBUMIN 4.2 GM/DL (3.2-4.5); ALKALINE PHOSPHATASE 147 U/L (40-136); BILIRUBIN,TOTAL 1.9 MG/DL (0.1-1.0); BUN/CREATININE RATIO 18; CALCIUM 9.5 MG/DL (8.5-10.1); CARBON DIOXIDE 25 MMOL/L (21-32); CHLORIDE 106 MMOL/L (98-107); CREATININE SERUM 0.92 MG/DL (0.60-1.30); GFR ESTIMATED > 60; GLUCOSE 113 MG/DL (70-105); SODIUM 142 MMOL/L (135-145); TOTAL PROTEIN 7.3 GM/DL (6.4-8.2)
[~2021-01-01 08:39] MED LIST changes: -ESTROGENS CONJ IV 25 MG/5 ML (PREMARIN) VIAL ONE
[2021-01-01 09:02] LABS: BASOPHILS # (AUTO) 0.1 10^3/uL (0.0-0.1); BASOPHILS % (AUTO) 1 % (0-10); EOSINOPHILS # (AUTO) 0.1 10^3/uL (0.0-0.3); EOSINOPHILS % (AUTO) 2 % (0-10); HEMATOCRIT 44 % (35-52); HEMOGLOBIN 14.9 g/dL (11.5-16.0); LYMPHOCYTES # (AUTO) 1.7 10^3/uL (1.0-4.0); LYMPHOCYTES % (AUTO) 30 % (12-44); MEAN CORPUSCULAR HEMOGLOBIN 30 pg (25-34); MEAN CORPUSCULAR HGB CONC 34 g/dL (32-36); MEAN CORPUSCULAR VOLUME 89 fL (80-99); MEAN PLATELET VOLUME 9.8 fL (9.0-12.2); MONOCYTES # (AUTO) 0.3 10^3/uL (0.0-1.0); MONOCYTES % (AUTO) 6 % (0-12); NEUTROPHILS # (AUTO) 3.6 10^3/uL (1.8-7.8); NEUTROPHILS % (AUTO) 62 % (42-75); PLATELET COUNT 145 10^3/uL (130-400); WHITE BLOOD COUNT 5.9 10^3/uL (4.3-11.0)
[2021-01-01 09:17] LABS: ALBUMIN 4.3 GM/DL (3.2-4.5); BILIRUBIN,TOTAL 1.8 MG/DL (0.1-1.0); CALCIUM 9.4 MG/DL (8.5-10.1); CREATININE SERUM 0.76 MG/DL (0.60-1.30); POTASSIUM 3.6 MMOL/L (3.6-5.0); TOTAL PROTEIN 7.3 GM/DL (6.4-8.2)
== END 2021-01-09 | disposition home or self-care (01) ==
LOC: ONC 08:39
PROVIDERS: ATTEND Internal Medicine Hematology & Oncology
DX: C50.412 Malignant neoplasm of upper-outer quadrant of left female breast (principal); C79.51 Secondary malignant neoplasm of bone; M85.88 Other specified disorders of bone density and structure, other site; I10 Essential (primary) hypertension; F17.210 Nicotine dependence, cigarettes, uncomplicated; Z85.43 Personal history of malignant neoplasm of ovary; Z90.710 Acquired absence of both cervix and uterus; Z92.3 Personal history of irradiation; Z79.899 Other long term (current) drug therapy; Z92.21 Personal history of antineoplastic chemotherapy; Z90.12 Acquired absence of left breast and nipple
CPT/HCPCS: 36591; 80048; 80053; 85025; 86300; 96402; 99213

== ENCOUNTER → 2021-01-26 | Outpatient (CLI) | payer BC ==
[~2021-01-26] MED LIST changes: +CATHETER FLUSH 10 ML SYR IV PRN; -FULVESTRANT 250 MG/5 ML SYR (CANCER CENTER) IM SCH; +HOLD METFORMIN - RECEIVED CONTRAST 20 ML VIAL IV SCH; +IOHEXOL 350 MG/ML 100 ML (OMNIPAQUE 350) VIAL IV ONE; +NS 100 ML (IVPB) BAG IV ONE
--- NOTE | 2021-01-26 13:31 | Diagnostic Imaging Report ---
EXAMINATION: CT chest with intravenous contrast, CT abdomen and pelvis without and with intravenous contrast. TECHNIQUE: Pre and post intravenous contrast axial imaging of the abdomen and pelvis and post contrast axial imaging of the chest were performed. All CT scans use one or more of the following dose optimizing techniques: automated exposure control, MA and/or KvP adjustment based on patient size and exam type or iterative reconstruction. HISTORY: INFILTRATING DUCTAL CARCINOMA OF LT BREAST. COMPARISON: 09/14/2020 FINDINGS: Thyroid: The thyroid is normal. Mediastinum: Heart size is normal without significant pericardial effusion. Calcifications of the aorta and coronary vessels. Thoracic aorta is normal in caliber. No suspicious lymphadenopathy. Right-sided port catheter is present. Lungs and airways: The lungs are clear without consolidation, pleural effusion, or pneumothorax. Stable 0.4 cm left upper lobe subpleural pulmonary nodule. The previously seen cystic nodule in the left lower lobe has decreased in size and now measures only 3 mm without cystic appearance. There is no new suspicious pulmonary nodule. There is mucus or debris within the trachea. Solid organs: The liver is normal without focal lesion. Multiple layering hyperdense stones within the gallbladder. There is no biliary ductal dilation. Pancreas is normal. Spleen is normal. Adrenal glands are normal. The kidneys are normal without hydronephrosis. Bowel: The stomach and small bowel are normal without obstruction. Colon is unremarkable. No findings of acute appendicitis. Peritoneum: There is no intraperitoneal free fluid or free air. No suspicious lymphadenopathy. Vasculature: Calcification of the aorta without aneurysm. Musculoskeletal: Multifocal mixed lytic and sclerotic lesions compatible with osseous metastatic disease. There are multiple ventral abdominal wall hernias containing loops of bowel without obstruction. Pelvis: The uterus is surgically absent. No adnexal mass. The urinary bladder is normal. IMPRESSION: 1. No new findings of metastatic disease. 2. Previously seen cystic nodule in the left lower lobe has decreased in size and no longer appears cystic. Stable additional pulmonary nodules. 3. Stable osseous metastatic disease. Dictated by: Dictated on workstation # [id number]
--- NOTE | 2021-01-26 15:45 | Diagnostic Imaging Report ---
INDICATION: Breast cancer. TECHNIQUE: Whole body bone scan. 25.4 mCi of technetium 99m MDP was given intravenously. COMPARISON: Prior exam dated 09/14/2020. There is some increased activity in two consecutive vertebra at the thoracolumbar junction. There are also two thoracic vertebra with increased activity in the midthoracic spine at approximately T5-T6. There is increased uptake in the lateral aspect of the left thoracic cage involving the 9th and 10th ribs. There is increased activity in the glenohumeral region of the left shoulder and at the tip of the right scapular wing. IMPRESSION: Whole body bone scan in multiple areas of increased uptake. These are stable compared to 09/14/2020. Dictated by: Dictated on workstation # [id number]
== END ==
LOC: CARD 12:00
PROVIDERS: ATTEND Nurse Practitioner Adult Health
DX: C50.412 Malignant neoplasm of upper-outer quadrant of left female breast (principal); C79.51 Secondary malignant neoplasm of bone
CPT/HCPCS: 71260; 74178; 78306; A9503

== ENCOUNTER → 2021-03-19 | Outpatient (CLI) | payer BC ==
[~2021-03-19] MED LIST changes: -CATHETER FLUSH 10 ML SYR IV PRN; -HOLD METFORMIN - RECEIVED CONTRAST 20 ML VIAL IV SCH; -IOHEXOL 350 MG/ML 100 ML (OMNIPAQUE 350) VIAL IV ONE; -NS 100 ML (IVPB) BAG IV ONE
== END ==
LOC: ONC 10:00
PROVIDERS: ATTEND Nurse Practitioner Adult Health
DX: R00.1 Bradycardia, unspecified (principal)
CPT/HCPCS: 96523

== ENCOUNTER → 2021-03-30 | Outpatient (CLI) | payer BC ==
[~2021-03-30] MED LIST changes: +GADOTERATE 0.5 MMOL/ML (CLARISCAN) 20 ML VIAL IV ONE
--- NOTE | 2021-03-30 09:48 | Diagnostic Imaging Report ---
Clinical indications: Patient with dizzy spells. Patient has history of breast cancer. Exam: MRI of the brain performed without and with 18 cc of Clariscan IV contrast. Sequences include axial DWI, ADC map, coronal gradient echo, axial T2, axial FLAIR, axial T1, axial T1 post IV contrast, coronal T1 fat-sat post IV contrast, and sagittal T1 post IV contrast. Comparison: CT angiogram of the head and neck dated 06/12/2020. Findings: There is a 10 mm x 5 mm circumscribed area of high T2 signal involving the right frontal lobe periventricular region. There is amorphous and peripheral enhancement associated with this lesion seen on the sagittal and coronal reformatted images. There is another 7 mm area of circumscribed high T2 signal in the upper left cerebellum which shows subtle enhancement on the sagittal postcontrast sequence. This lesion is partially obscured. There is no significant adjacent high T2 signal adjacent to these lesions. There are no other areas of abnormal IV contrast enhancement seen on this exam. The brain parenchymal volume appears appropriate for patient's age. There are several focal areas of high T2 signal white matter changes involving both cerebral hemispheres, likely representing mild chronic small vessel ischemic disease. There is no hydrocephalus, brain herniation or midline shift. There is no intracranial hemorrhage. The [place] vascular structures show no gross abnormality as visualized. The pituitary gland, sella, and suprasellar regions are unremarkable as visualized. Basal cisterns are unremarkable. The extracranial soft tissue, skull, and orbits are unremarkable. Paranasal sinuses and mastoid air cells are clear. IMPRESSION: 1: There is a 10 mm area of high T2 signal with amorphous enhancement involving the right frontal lobe periventricular region. There is another 7 mm area of circumscribed high T2 signal in the upper left cerebellum which shows subtle enhancement. There is no significant parenchymal edema adjacent to these lesions. These areas were not seen on the prior CT angiogram. These areas are concerning for metastatic disease. 2: Otherwise, unremarkable MRI of the brain for age. Dictated by: Dictated on workstation # [id number]
== END ==
LOC: RAD 08:00
PROVIDERS: ATTEND Nurse Practitioner Adult Health
DX: R91.8 Other nonspecific abnormal finding of lung field (principal); R42 Dizziness and giddiness; R79.89 Other specified abnormal findings of blood chemistry; Z85.3 Personal history of malignant neoplasm of breast
CPT/HCPCS: 70553

== ENCOUNTER 2021-04-09 08:40 | Outpatient (RCR) | payer BC ==
[2021-01-29 09:44] LABS: BASOPHILS # (AUTO) 0.1 10^3/uL (0.0-0.1); BASOPHILS % (AUTO) 1 % (0-10); EOSINOPHILS # (AUTO) 0.1 10^3/uL (0.0-0.3); EOSINOPHILS % (AUTO) 2 % (0-10); HEMATOCRIT 46 % (35-52); HEMOGLOBIN 15.1 g/dL (11.5-16.0); LYMPHOCYTES # (AUTO) 1.4 10^3/uL (1.0-4.0); LYMPHOCYTES % (AUTO) 21 % (12-44); MEAN CORPUSCULAR HEMOGLOBIN 30 pg (25-34); MEAN CORPUSCULAR HGB CONC 33 g/dL (32-36); MEAN CORPUSCULAR VOLUME 91 fL (80-99); MEAN PLATELET VOLUME 10.2 fL (9.0-12.2); MONOCYTES # (AUTO) 0.4 10^3/uL (0.0-1.0); MONOCYTES % (AUTO) 6 % (0-12); NEUTROPHILS # (AUTO) 4.6 10^3/uL (1.8-7.8); NEUTROPHILS % (AUTO) 70 % (42-75); PLATELET COUNT 153 10^3/uL (130-400); WHITE BLOOD COUNT 6.6 10^3/uL (4.3-11.0)
[2021-01-29 11:36] LABS: ALBUMIN 4.3 GM/DL (3.2-4.5); BILIRUBIN,TOTAL 1.5 MG/DL (0.1-1.0); CREATININE SERUM 0.84 MG/DL (0.60-1.30); POTASSIUM 3.8 MMOL/L (3.6-5.0); TOTAL PROTEIN 7.4 GM/DL (6.4-8.2)
[2021-02-19 09:03] LABS: BASOPHILS # (AUTO) 0.1 10^3/uL (0.0-0.1); BASOPHILS % (AUTO) 1 % (0-10); EOSINOPHILS # (AUTO) 0.1 10^3/uL (0.0-0.3); EOSINOPHILS % (AUTO) 2 % (0-10); HEMATOCRIT 44 % (35-52); HEMOGLOBIN 14.7 g/dL (11.5-16.0); LYMPHOCYTES # (AUTO) 1.6 10^3/uL (1.0-4.0); LYMPHOCYTES % (AUTO) 28 % (12-44); MEAN CORPUSCULAR HEMOGLOBIN 31 pg (25-34); MEAN CORPUSCULAR HGB CONC 33 g/dL (32-36); MEAN CORPUSCULAR VOLUME 92 fL (80-99); MEAN PLATELET VOLUME 9.8 fL (9.0-12.2); MONOCYTES # (AUTO) 0.3 10^3/uL (0.0-1.0); MONOCYTES % (AUTO) 6 % (0-12); NEUTROPHILS # (AUTO) 3.6 10^3/uL (1.8-7.8); NEUTROPHILS % (AUTO) 63 % (42-75); PLATELET COUNT 136 10^3/uL (130-400); WHITE BLOOD COUNT 5.7 10^3/uL (4.3-11.0)
[2021-02-19 09:22] LABS: ALBUMIN 4.3 GM/DL (3.2-4.5); BILIRUBIN,TOTAL 1.6 MG/DL (0.1-1.0); CALCIUM 9.8 MG/DL (8.5-10.1); CREATININE SERUM 0.81 MG/DL (0.60-1.30); POTASSIUM 3.7 MMOL/L (3.6-5.0); TOTAL PROTEIN 7.2 GM/DL (6.4-8.2)
[2021-03-19 09:27] LABS: BASOPHILS # (AUTO) 0.1 10^3/uL (0.0-0.1); BASOPHILS % (AUTO) 1 % (0-10); EOSINOPHILS # (AUTO) 0.1 10^3/uL (0.0-0.3); EOSINOPHILS % (AUTO) 2 % (0-10); HEMATOCRIT 45 % (35-52); HEMOGLOBIN 15.2 g/dL (11.5-16.0); LYMPHOCYTES # (AUTO) 1.7 10^3/uL (1.0-4.0); LYMPHOCYTES % (AUTO) 28 % (12-44); MEAN CORPUSCULAR HEMOGLOBIN 31 pg (25-34); MEAN CORPUSCULAR HGB CONC 34 g/dL (32-36); MEAN CORPUSCULAR VOLUME 90 fL (80-99); MEAN PLATELET VOLUME 9.9 fL (9.0-12.2); MONOCYTES # (AUTO) 0.3 10^3/uL (0.0-1.0); MONOCYTES % (AUTO) 6 % (0-12); NEUTROPHILS # (AUTO) 3.7 10^3/uL (1.8-7.8); NEUTROPHILS % (AUTO) 63 % (42-75); PLATELET COUNT 149 10^3/uL (130-400); WHITE BLOOD COUNT 5.9 10^3/uL (4.3-11.0)
[2021-03-19 09:48] LABS: ALBUMIN 4.1 GM/DL (3.2-4.5); BILIRUBIN,TOTAL 1.8 MG/DL (0.1-1.0); CALCIUM 9.7 MG/DL (8.5-10.1); CREATININE SERUM 0.81 MG/DL (0.60-1.30); POTASSIUM 3.5 MMOL/L (3.6-5.0)
[~2021-04-09 08:40] MED LIST changes: -GADOTERATE 0.5 MMOL/ML (CLARISCAN) 20 ML VIAL IV ONE; +POTA-160 PO; -POTA10TA6 PO
[2021-04-09 09:10] LABS: MEAN CORPUSCULAR HEMOGLOBIN 31 pg (25-34); MEAN CORPUSCULAR HGB CONC 34 g/dL (32-36)
[2021-04-09 09:12] LABS: BASOPHILS % (AUTO) 1 % (0-10); EOSINOPHILS # (AUTO) 0.1 10^3/uL (0.0-0.3); EOSINOPHILS % (AUTO) 2 % (0-10); HEMATOCRIT 43 % (35-52); HEMOGLOBIN 14.5 g/dL (11.5-16.0); LYMPHOCYTES # (AUTO) 1.6 10^3/uL (1.0-4.0); LYMPHOCYTES % (AUTO) 30 % (12-44); MEAN CORPUSCULAR VOLUME 91 fL (80-99); MEAN PLATELET VOLUME 9.6 fL (9.0-12.2); MONOCYTES # (AUTO) 0.3 10^3/uL (0.0-1.0); MONOCYTES % (AUTO) 6 % (0-12); NEUTROPHILS # (AUTO) 3.2 10^3/uL (1.8-7.8); NEUTROPHILS % (AUTO) 61 % (42-75); PLATELET COUNT 119 10^3/uL (130-400); WHITE BLOOD COUNT 5.3 10^3/uL (4.3-11.0)
[2021-04-09 09:27] LABS: ALBUMIN 4.2 GM/DL (3.2-4.5); BILIRUBIN,TOTAL 1.8 MG/DL (0.1-1.0); CALCIUM 9.7 MG/DL (8.5-10.1); CREATININE SERUM 0.84 MG/DL (0.60-1.30); POTASSIUM 4.1 MMOL/L (3.6-5.0); TOTAL PROTEIN 7.2 GM/DL (6.4-8.2)
== END 2021-04-29 | disposition home or self-care (01) ==
LOC: ONC 08:40
PROVIDERS: ATTEND Internal Medicine Hematology & Oncology
DX: C50.412 Malignant neoplasm of upper-outer quadrant of left female breast (principal); C79.51 Secondary malignant neoplasm of bone; M85.89 Other specified disorders of bone density and structure, multiple sites; I10 Essential (primary) hypertension; E87.6 Hypokalemia; E66.9 Obesity, unspecified; R73.9 Hyperglycemia, unspecified; Z90.710 Acquired absence of both cervix and uterus; Z92.3 Personal history of irradiation; Z79.899 Other long term (current) drug therapy; Z72.0 Tobacco use
CPT/HCPCS: 80053; 85025; 86300; G0463; 93005; 99204; 99213; 99214

== ENCOUNTER → 2021-04-17 | Outpatient (CLI) | payer BC ==
[~2021-04-17] MED LIST changes: -POTA-160 PO; +POTA10TA6 PO
== END ==
LOC: CARD 08:30
PROVIDERS: ATTEND Internal Medicine Cardiovascular Disease
DX: I08.0 Rheumatic disorders of both mitral and aortic valves (principal); I11.9 Hypertensive heart disease without heart failure
CPT/HCPCS: 93306

== ENCOUNTER → 2021-04-24 | Outpatient (CLI) | payer BC ==
[~2021-04-24] MED LIST changes: +BARIUM SUSPENSION 2.1% (VANILLA SILQ) 450 ML PO ONE; +CATHETER FLUSH 10 ML SYR IV PRN; +HOLD METFORMIN - RECEIVED CONTRAST 20 ML VIAL IV SCH; +IOHEXOL 350 MG/ML 100 ML (OMNIPAQUE 350) VIAL IV ONE; +NS 100 ML (IVPB) BAG IV ONE; +POTA-160 PO; -POTA10TA6 PO
--- NOTE | 2021-04-24 12:22 | Diagnostic Imaging Report ---
PROCEDURE: CT chest with contrast, CT abdomen and pelvis with and without contrast. TECHNIQUE: Pre and post intravenous contrast axial imaging of the abdomen and pelvis and post contrast axial imaging of the chest were performed. Auto Exposure Controls were utilized during the CT exam to meet ALARA standards for radiation dose reduction. INDICATION: Left breast carcinoma, status post left lumpectomy. This study is performed for followup. COMPARISON: 01/26/2021. FINDINGS: CT CHEST: The right chest wall port has the tip within the SVC. There are multiple surgical clips in the left axilla. No axillary lymphadenopathy is seen. No internal mammary, mediastinal, or hilar lymphadenopathy is detected. There is no pericardial or pleural fluid identified. A tiny subpleural nodule in the left upper lobe is stable. An ill-defined density along the major fissure in the superior segment of the right lower lobe appears similar to the prior exam. No new parenchymal mass is detected. 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 CT ABDOMEN AND PELVIS: There has been development of several small vague regions of hypoattenuation within the right and left lobes of the liver, not appreciated on the prior CT. These are small with the largest in the inferior right lobe measuring 8 mm but these are concerning for developing hepatic metastatic disease. The gallbladder does contain a large stone but there is no biliary ductal dilatation. The pancreas and spleen are unremarkable. No adrenal mass is identified. The kidneys are unremarkable. The aorta is heavily calcified but nonaneurysmal. There is no central retroperitoneal or mesenteric lymphadenopathy. The bowel loops are of normal caliber. There is a midline ventral hernia containing small bowel loops. There is no evidence of strangulation or obstruction. There are surgical clips in the left lower quadrant. No free fluid or fluid collection is seen. The bladder is unremarkable. The uterus appears to be surgically absent. Osteolytic and sclerotic lesions in the lumbar spine are again noted, consistent with osseous metastatic disease. IMPRESSION: 1. There has been development of multiple subcentimeter hypoattenuating nodules within the liver, concerning for developing hepatic metastatic disease. 2. No evidence of abdominal or pelvic lymphadenopathy. 3. Osseous metastatic disease. 4. Cholelithiasis. 5. Midline ventral hernia containing small bowel loops with no evidence of strangulation or bowel obstruction. Dictated by: Dictated on workstation # [id number]
--- NOTE | 2021-04-24 14:41 | Diagnostic Imaging Report ---
INDICATION: Breast cancer. TECHNIQUE: Patient was administered 25.2 mCi technetium-99m MDP intravenously, and whole body imaging was performed after a three-hour delay. COMPARISON: Correlation is made with prior whole body bone scan from 01/26/2021. FINDINGS: There continues to be abnormal activity in the left shoulder as well as involving the lateral left ribs. Activity in the region of the right scapula is noted. There is activity within the upper thoracic vertebrae as well as vertebrae at the thoracolumbar junction, similar to prior study. Features remain consistent with osseous metastatic disease. There is also a focus of uptake involving the calvarium on the left side, which appears new on today's exam. IMPRESSION: Findings consistent with osseous metastatic disease. There is a questionable new lesion in the left calvarium. Dictated by: Dictated on workstation # [id number]
== END ==
LOC: CARD 11:00
PROVIDERS: ATTEND Nurse Practitioner Adult Health
DX: C79.51 Secondary malignant neoplasm of bone (principal); C50.412 Malignant neoplasm of upper-outer quadrant of left female breast; C56.9 Malignant neoplasm of unspecified ovary; K76.89 Other specified diseases of liver; K80.20 Calculus of gallbladder without cholecystitis without obstruction; K43.9 Ventral hernia without obstruction or gangrene; Z98.890 Other specified postprocedural states; Z95.828 Presence of other vascular implants and grafts
CPT/HCPCS: 71260; 74178; 78306; A9503

== ENCOUNTER → 2021-05-03 | Outpatient (CLI) | payer BC ==
[~2021-05-03] MED LIST changes: -BARIUM SUSPENSION 2.1% (VANILLA SILQ) 450 ML PO ONE; -CATHETER FLUSH 10 ML SYR IV PRN; -HOLD METFORMIN - RECEIVED CONTRAST 20 ML VIAL IV SCH; -IOHEXOL 350 MG/ML 100 ML (OMNIPAQUE 350) VIAL IV ONE; -NS 100 ML (IVPB) BAG IV ONE
== END ==
LOC: CARD 12:00
PROVIDERS: ATTEND Internal Medicine Hematology & Oncology
DX: I08.0 Rheumatic disorders of both mitral and aortic valves (principal); I42.9 Cardiomyopathy, unspecified
CPT/HCPCS: 93306

== ENCOUNTER 2021-05-28 08:55 | Outpatient (RCR) | payer BC ==
[2021-05-03 09:06] LABS: LYMPHOCYTES # (AUTO) 1.3 10^3/uL (1.0-4.0)
[2021-05-03 09:08] LABS: BASOPHILS % (AUTO) 1 % (0-10); EOSINOPHILS # (AUTO) 0.1 10^3/uL (0.0-0.3); EOSINOPHILS % (AUTO) 2 % (0-10); HEMATOCRIT 41 % (35-52); HEMOGLOBIN 13.7 g/dL (11.5-16.0); LYMPHOCYTES % (AUTO) 23 % (12-44); MEAN CORPUSCULAR HEMOGLOBIN 31 pg (25-34); MEAN CORPUSCULAR HGB CONC 33 g/dL (32-36); MEAN CORPUSCULAR VOLUME 93 fL (80-99); MEAN PLATELET VOLUME 10.1 fL (9.0-12.2); MONOCYTES # (AUTO) 0.4 10^3/uL (0.0-1.0); MONOCYTES % (AUTO) 7 % (0-12); NEUTROPHILS # (AUTO) 3.6 10^3/uL (1.8-7.8); NEUTROPHILS % (AUTO) 67 % (42-75); PLATELET COUNT 124 10^3/uL (130-400); WHITE BLOOD COUNT 5.4 10^3/uL (4.3-11.0)
[2021-05-03 09:22] LABS: ALBUMIN 3.9 GM/DL (3.2-4.5); BILIRUBIN,TOTAL 1.6 MG/DL (0.1-1.0); CALCIUM 9.1 MG/DL (8.5-10.1); CREATININE SERUM 1.1 MG/DL (0.60-1.30); POTASSIUM 4.3 MMOL/L (3.6-5.0); TOTAL PROTEIN 6.2 GM/DL (6.4-8.2)
[~2021-05-28] VITALS: Ht 172.7 cm; Wt 93.0 kg
[~2021-05-28 08:55] MED LIST changes: +NS IV SCH; +TRASTUZUMAB PKRB IV SCH
== END 2021-06-01 | disposition home or self-care (01) ==
LOC: ONC 08:55
PROVIDERS: ATTEND Internal Medicine Hematology & Oncology
DX: Z51.11 Encounter for antineoplastic chemotherapy (principal); C50.412 Malignant neoplasm of upper-outer quadrant of left female breast; C79.51 Secondary malignant neoplasm of bone; M85.89 Other specified disorders of bone density and structure, multiple sites; I10 Essential (primary) hypertension; E87.6 Hypokalemia; E66.9 Obesity, unspecified; R73.9 Hyperglycemia, unspecified; Z90.12 Acquired absence of left breast and nipple; Z90.710 Acquired absence of both cervix and uterus; Z92.3 Personal history of irradiation; Z79.899 Other long term (current) drug therapy; Z72.0 Tobacco use
CPT/HCPCS: 80053; 85025; 86300; G0463; 36591; 96365; 96413; 99213

== ENCOUNTER → 2021-05-28 | Outpatient (CLI) | payer BC ==
[2021-05-28 09:37] LABS: CALCIUM 9.2 MG/DL (8.5-10.1); CREATININE SERUM 0.77 MG/DL (0.60-1.30); POTASSIUM 3.5 MMOL/L (3.6-5.0)
== END ==
LOC: LAB 08:57
PROVIDERS: ATTEND Physician Assistant
DX: I10 Essential (primary) hypertension (principal)
CPT/HCPCS: 36415; 80048

== ENCOUNTER 2021-06-11 09:00 | Outpatient (RCR) | payer BC ==
[2021-06-04 09:32] LABS: BASOPHILS # (AUTO) 0.1 10^3/uL (0.0-0.1); BASOPHILS % (AUTO) 1 % (0-10); EOSINOPHILS # (AUTO) 0.1 10^3/uL (0.0-0.3); EOSINOPHILS % (AUTO) 2 % (0-10); HEMATOCRIT 41 % (35-52); LYMPHOCYTES # (AUTO) 1.1 10^3/uL (1.0-4.0); LYMPHOCYTES % (AUTO) 21 % (12-44); MEAN CORPUSCULAR HEMOGLOBIN 31 pg (25-34); MEAN CORPUSCULAR HGB CONC 34 g/dL (32-36); MEAN CORPUSCULAR VOLUME 92 fL (80-99); MEAN PLATELET VOLUME 10.5 fL (9.0-12.2); MONOCYTES # (AUTO) 0.4 10^3/uL (0.0-1.0); MONOCYTES % (AUTO) 8 % (0-12); NEUTROPHILS # (AUTO) 3.6 10^3/uL (1.8-7.8); NEUTROPHILS % (AUTO) 67 % (42-75); PLATELET COUNT 156 10^3/uL (130-400); WHITE BLOOD COUNT 5.4 10^3/uL (4.3-11.0)
[2021-06-04 09:51] LABS: ALBUMIN 4.1 GM/DL (3.2-4.5); BILIRUBIN,TOTAL 1.8 MG/DL (0.1-1.0); CALCIUM 9.1 MG/DL (8.5-10.1); CREATININE SERUM 0.76 MG/DL (0.60-1.30); POTASSIUM 3.4 MMOL/L (3.6-5.0); TOTAL PROTEIN 6.7 GM/DL (6.4-8.2)
[~2021-06-11 09:00] MED LIST changes: +NS IV 1000 ML (CANCER CTR) IV SCH
== END 2021-07-02 | disposition home or self-care (01) ==
LOC: ONC 09:00
PROVIDERS: ATTEND Internal Medicine Hematology & Oncology
DX: Z51.11 Encounter for antineoplastic chemotherapy (principal); C50.412 Malignant neoplasm of upper-outer quadrant of left female breast; C79.51 Secondary malignant neoplasm of bone; M85.89 Other specified disorders of bone density and structure, multiple sites; I10 Essential (primary) hypertension; E87.6 Hypokalemia; E66.9 Obesity, unspecified; R73.9 Hyperglycemia, unspecified; Z90.12 Acquired absence of left breast and nipple; Z90.710 Acquired absence of both cervix and uterus; Z92.3 Personal history of irradiation; Z79.899 Other long term (current) drug therapy; Z72.0 Tobacco use
CPT/HCPCS: 80053; 85025; 86300; 96413; G0463; 36591; 99213

== ENCOUNTER → 2021-07-02 | Outpatient (CLI) | payer BC ==
[~2021-07-02] MED LIST changes: +GADOTERATE 0.5 MMOL/ML (CLARISCAN) 20 ML VIAL IV ONE; -NS IV 1000 ML (CANCER CTR) IV SCH; -NS IV SCH; -TRASTUZUMAB PKRB IV SCH
--- NOTE | 2021-07-02 12:18 | Diagnostic Imaging Report ---
PROCEDURE: MR imaging of the brain with and without contrast. TECHNIQUE: Multiplanar, multisequence MR imaging of the brain was performed with and without contrast. INDICATION: Metastatic breast cancer. COMPARISON: MRI brain without and with IV contrast 03/30/2021. FINDINGS: Since prior exam, the T2 hyperintensity in the left cerebellum has resolved. The primarily cystic mass in the right frontal lobe abutting the frontal horn of the right lateral ventricle today measures 1.0 x 1.4 cm, previously 0.5 x 1.0 cm. This demonstrates some peripheral amorphous enhancement, similar to the prior exam. There is a new peripherally enhancing mass in the left occipital bone measuring approximately 1.1 x 1.1 cm. No restricted water diffusion. No hemosiderin deposition or evidence of intracranial hemorrhage. No hydrocephalus or extra-axial fluid collections. Normal intracranial flow voids. The orbits are unremarkable. Mucosal thickening in the right sphenoid sinus is stable. Mastoids are clear. IMPRESSION: 1. Interval growth of the cystic mass with amorphous enhancement in the right frontal lobe abutting the frontal horn of the right lateral ventricle, measurements above. 2. New peripheral enhancing mass in the left occipital bone measuring up 1.1 cm. 3. The previously seen T2 hyperintensity in the left cerebellum is not reproduced on today's exam. Dictated by: Dictated on workstation # [id number]
== END ==
LOC: RAD 10:15
PROVIDERS: ATTEND Radiology Radiation Oncology
DX: C50.919 Malignant neoplasm of unspecified site of unspecified female breast (principal); C79.31 Secondary malignant neoplasm of brain
CPT/HCPCS: 70553

== ENCOUNTER 2021-07-27 08:01 | Outpatient (RCR) | payer BC ==
[~2021-07-27 08:01] MED LIST changes: -GADOTERATE 0.5 MMOL/ML (CLARISCAN) 20 ML VIAL IV ONE
== END 2021-07-30 | disposition home or self-care (01) ==
LOC: ONC 08:01
PROVIDERS: ATTEND Radiology Radiation Oncology
DX: Z51.0 Encounter for antineoplastic radiation therapy (principal); C50.412 Malignant neoplasm of upper-outer quadrant of left female breast; C79.51 Secondary malignant neoplasm of bone; M85.89 Other specified disorders of bone density and structure, multiple sites; I10 Essential (primary) hypertension; Z90.12 Acquired absence of left breast and nipple; Z90.710 Acquired absence of both cervix and uterus; Z79.899 Other long term (current) drug therapy; Z72.0 Tobacco use; Z92.21 Personal history of antineoplastic chemotherapy
CPT/HCPCS: 77290; 77300; 77301; 77334; 77338; 77372; 77470; 99213

== ENCOUNTER 2021-08-27 08:47 | Outpatient (RCR) | payer BC | END 2021-08-30 | LOC: ONC 08:47 | PROVIDERS: ATTEND Radiology Radiation Oncology | DX: Z51.0 Encounter for antineoplastic radiation therapy (principal); C50.412 Malignant neoplasm of upper-outer quadrant of left female breast; C79.51 Secondary malignant neoplasm of bone | CPT/HCPCS: 77290; 77334; G0463; 77280; 77295; 77300; 77336; 77417; 77470; 99213 ==

== ENCOUNTER 2021-09-27 11:05 | Outpatient (RCR) | payer BC | END 2021-09-29 | disposition home or self-care (01) | LOC: ONC 11:05 | PROVIDERS: ATTEND Radiology Radiation Oncology | DX: Z51.0 Encounter for antineoplastic radiation therapy (principal); C79.51 Secondary malignant neoplasm of bone; C50.412 Malignant neoplasm of upper-outer quadrant of left female breast | CPT/HCPCS: 77290; 77334; G0463; 77280; 77295; 77300; 99214 ==

== ENCOUNTER 2021-10-01 09:45 | Outpatient (RCR) | payer BC | END 2021-10-30 | disposition home or self-care (01) | LOC: ONC 09:45 | PROVIDERS: ATTEND Radiology Radiation Oncology | DX: Z51.0 Encounter for antineoplastic radiation therapy (principal); C50.412 Malignant neoplasm of upper-outer quadrant of left female breast; C79.51 Secondary malignant neoplasm of bone; I25.10 Atherosclerotic heart disease of native coronary artery without angina pectoris; E78.2 Mixed hyperlipidemia; I11.0 Hypertensive heart disease with heart failure; I50.9 Heart failure, unspecified | CPT/HCPCS: 77470 ==